=== PATIENT | female | born 1955 | race Caucasian/White ===

== ENCOUNTER → 2016-09-01 | Day surgery (SDC) | payer OTHER ==
[2016-08-23 11:27] VITALS: BMI 25.8
[~2016-09-01] MED LIST: DEXAMETHASONE SOD PHOSPHATE 10 MG/ML 1 ML VIAL IV ONE; GENTAMICIN 120 MG in SODIUM CHLORIDE 0.9% 100 ML IVPB ONE; HYDROmorphone 1 MG/ML 1 ML SYRINGE IVP PRN; LACTATED RINGERS 1,000 ML IV SCH; MIDAZOLAM 2 MG/2 ML VIAL IV PRN; ONDANSETRON 4 MG/2 ML VIAL IVP ONE; SCOPOLAMINE 1.5MG/72HR PATCH TRANSDERM ONE; ceFAZolin 2 GM in SODIUM CHLORIDE 0.9% 100 ML IVPB ONE
[2016-09-01 06:34] VITALS: BP 106/75; PULSE 74; RESP 18; TEMP 97.6
== END ==
LOC: OR 06:13
PROVIDERS: ATTEND Urology
DX: N39.46 Mixed incontinence (principal); Z53.09 Procedure and treatment not carried out because of other contraindication

== ENCOUNTER 2016-09-23 13:36 | Day surgery (SDC) | payer OTHER ==
[~2016-09-23 13:36] MED LIST changes: -DEXAMETHASONE SOD PHOSPHATE 10 MG/ML 1 ML VIAL IV ONE; -HYDROmorphone 1 MG/ML 1 ML SYRINGE IVP PRN; -LACTATED RINGERS 1,000 ML IV SCH; -MIDAZOLAM 2 MG/2 ML VIAL IV PRN; -ONDANSETRON 4 MG/2 ML VIAL IVP ONE; -SCOPOLAMINE 1.5MG/72HR PATCH TRANSDERM ONE
[2016-09-23] MEDS ORDERED: LACTATED RINGERS 1,000 ML IV ONE ×2 (14:15→15:21)
[2016-09-23] MEDS ORDERED: SCOPOLAMINE 1.5MG/72HR PATCH TRANSDERM ONE (14:26)
[2016-09-23] MEDS ORDERED: ONDANSETRON 4 MG/2 ML VIAL IVP ONE (14:26)
[2016-09-23] MEDS ORDERED: MIDAZOLAM 2 MG/2 ML VIAL IV PRN (14:26)
[2016-09-23] MEDS ORDERED: HYDROmorphone 1 MG/ML 1 ML SYRINGE IVP PRN (14:26)
[2016-09-23] MEDS ORDERED: LIDOCAINE 1% 20 ML VIAL (10MG/ML) FOR IV START INTRADERMA PRN (14:26)
[2016-09-23] MEDS ORDERED: DEXAMETHASONE SOD PHOSPHATE 10 MG/ML 1 ML VIAL IV ONE (14:26)
[2016-09-23] MEDS ORDERED: LACTATED RINGERS 1,000 ML IV SCH (14:30)
[2016-09-23] MEDS ORDERED: SUCCINYLCHOLINE CHLORIDE 100 MG/5 ML SYR IV ONE (14:32)
[2016-09-23] MEDS ORDERED: PROPOFOL 10 MG/ML 20 ML VIAL IV ONE (14:32)
[2016-09-23] MEDS ORDERED: ROCURONIUM BROMIDE 10 MG/ML 10 ML VIAL IV ONE (14:32)
[2016-09-23] MEDS ORDERED: LIDOCAINE 1% INJ 10MG/ML (20 ML MDV) ONE (14:32)
[2016-09-23] MEDS ORDERED: NEOSTIGMINE 1 MG/ML 10 ML VIAL ONE (14:32)
[2016-09-23] MEDS ORDERED: fentaNYL (PF) 50 MCG/ML 2 ML AMP ONE (14:32)
[2016-09-23] MEDS ORDERED: GLYCOPYRROLATE 0.2 MG/ML 2 ML VIAL ONE (14:32)
[2016-09-23] MEDS ORDERED: GENTAMICIN 80 MG in SODIUM CHLORIDE 0.9% 500 ML IRRIGATION ONE (14:32)
[2016-09-23] MEDS ORDERED: HYDROmorphone (PF) 1 MG/ML ONE (14:32)
[2016-09-23] MEDS ORDERED: MIDAZOLAM 2 MG/2 ML VIAL ONE (14:32)
[2016-09-23] MEDS ORDERED: ePHEDrine 50 MG/ML 1 ML AMP ONE (14:32)
[2016-09-23] MEDS ORDERED: BUPIVACAIN-EPI 0.5%-1:200,000 30 ML VIAL SQ ONE ×4 (14:38→14:47)
[2016-09-23] MEDS ORDERED: BACITRACIN 500 UNIT/GM OINT 28.4 GM TUBE TOPICAL ONE (14:48)
--- NOTE | 2016-09-23 15:42 | P.OP ---
Date of Procedure: 09/23/16 Preoperative Diagnosis: Mixed Urinary Incontinence Postoperative Diagnosis: Same Procedure(s) Performed: Obtryx Transobturator Sling Anesthesia: GILES Surgeon: Gabe Vega Estimated Blood Loss (ml): 25 IV fluids (ml): 900 Pathology: none sent Condition: stable Disposition: PACU Indications for Procedure: She is a 61-year-old woman with a greater than 10 year history of significant mixed urinary incontinence, which required the use of 6 pads daily. The urge component is predominant. Treatment with Toviaz and oxybutynin chloride was unsuccessful. On examination, there is evidence of mild urethral hypermobility. Bladder emptying is complete. She was given a trial of Myrbetriq but does not recall how well it worked. She is currently taking Detrol, and her incontinence is improved such that she now requires the use of 3 pads daily. Recent urinalysis showed microhematuria. A CT scan and cystoscopy were unremarkable. She has elected to undergo a transobturator sling for her incontinence. She understands the possible need for her to continue antimuscarinic therapy following surgery. Operative Findings: No anatomic abnormalities noted. Description of Procedure: The patient was taken to the operating room and placed in the dorsal lithotomy position, with her legs supported in Erik stirrups. The perineum, lower abdomen, and vagina were prepped and draped sterilely. A 16-Portuguese Downing catheter was placed. 0.5% Marcaine with epinephrine was injected submucosally within the anterior vaginal wall, over the urethra. The scalpel was then used to make an anterior midline vaginal incision over the urethra. Metzenbaum scissors were used to dissect laterally within the submucosal plane, to the inferior pubic ramus. The scalpel was used to make bilateral groin incisions at the level of the clitoris. Subcutaneous tissues were spread with a hemostat. Each of the helical needles were passed through the respective groin incision, and turned such that the needle tip wrapped around the pubis. The needle tips were guided digitally into the vaginal incision. The Obtryx graft, which had been previously soaked in antibiotic solution, was secured to the needle tips in the standard fashion. The needles were then withdrawn, and the position of the graft was adjusted such that it overlie the mid urethra, as desired. With a hemostat placed between the graft and the urethra to prevent tension of the graft over the urethra, the plastic sheath was removed from the ends of the graft. The ends of the graft were cut beneath the skin incisions, and these incisions were closed using 4-0 Vicryl suture in a subcuticular fashion. Hemostasis within the vaginal incision was adequate, and the vaginal incision was closed using 2-0 Vicryl suture in a running fashion. Cystoscopy was performed. The 30 lens was used to introduce the 19-Portuguese Storz cystoscopic sheath through the urethra and into the bladder under direct vision. The urethra and bladder were unremarkable. There was no evidence of perforation. Both ureteral orifices were of normal anatomic location and configuration, and clear urine effluxed from both. No tumors or foreign bodies were seen. The cystoscope was removed, and the Downing catheter was replaced into the bladder. All sponge and needle counts were correct. The patient tolerated the procedure well was taken to the recovery room in stable condition.
[2016-09-23] MEDS ORDERED: ONDANSETRON 4 MG/2 ML VIAL IVP PRN (15:44)
[2016-09-23] MEDS ORDERED: HYDROcodone/APAP 5-325MG 1 EACH TAB PO PRN ×2 (15:48→15:49)
[2016-09-23] MEDS ORDERED: ceFAZolin 1 GM in SODIUM CHLORIDE 0.9% 100 ML IVPB SCH ×2 (16:00→23:00)
[2016-09-23] MEDS: DEXTROSE 5%-0.45% NACL 1,000 ML IV SCH (18:24)
[2016-09-23 23:32] VITALS: BMI 25.7
[2016-09-23] MEDS: ceFAZolin 1,000 MG in DEXTROSE/WATER 1 50ML.BAG IVPB SCH (23:47)
[2016-09-24] MEDS ORDERED: GENTAMICIN 100 MG in SODIUM CHLORIDE 0.9% 100 ML IVPB ONE (02:00)
[2016-09-24] MEDS: KETOROLAC 30 MG/ML 1 ML VIAL IVP PRN ×2 (02:12→09:34)
[2016-09-24] MEDS: DEXTROSE 5%-0.45% NACL 1,000 ML IV SCH (04:52)
[2016-09-24 08:19] VITALS: BP 92/54; PULSE 54; TEMP 97.5
[2016-09-24] MEDS ORDERED: PANTOPRAZOLE 40 MG TABLET PO SCH (09:00)
[2016-09-24] MEDS ORDERED: CITALOPRAM HYDROBROMIDE 20 MG TAB PO SCH (09:00)
[2016-09-24] MEDS: ceFAZolin 1,000 MG in DEXTROSE/WATER 1 50ML.BAG IVPB SCH (09:15)
--- NOTE | 2016-09-24 09:18 | P.PN ---
Progress Note - Text The patient is afebrile and comfortable. He catheter was removed 2 hours ago and she was able to void with a post void residual of 20 ml. There is minimal vaginal drainage. She will be discharged and will see Dr Vega in 1 week for followup. She will continue all preop meds and can resume a regular diet. She will continue light activity only.
[2016-09-24 11:08] VITALS: RESP 18
== END 2016-09-24 11:35 | disposition home or self-care (01) ==
LOC: OR 13:36 → 6PED 15:38 → OR 09-24 11:35
PROVIDERS: ATTEND Urology
DX: N39.46 Mixed incontinence (principal); K21.9 Gastro-esophageal reflux disease without esophagitis; F41.9 Anxiety disorder, unspecified; F32.9 Major depressive disorder, single episode, unspecified; G47.33 Obstructive sleep apnea (adult) (pediatric); Z79.899 Other long term (current) drug therapy; Z88.5 Allergy status to narcotic agent; Z72.0 Tobacco use
CPT/HCPCS: 57288; C1771; J2250; J1580 ×3; J2710; J0690 ×2; J2405; J2001; J3010; J1885; J1170; J0330; J2704

== ENCOUNTER → 2016-11-17 | Outpatient (CLI) | payer OTHER ==
--- NOTE | 2016-11-17 12:26 | MR ---
MR lumbar spine wo con CLINICAL HISTORY: Low back pain. Multiplanar, multiecho imaging of the lumbar spine was obtained without contrast on a 3 Zina magnet. REFERENCE: Previous study dated 10/10/2014. FINDINGS: Paraspinal soft tissues are normal. Vertebral body height and alignment are maintained. Cord signal is normal. The conus ends normally at the level of the mid body of L1. At T12-L1, there is a central and slightly left paracentral disc displacement. This is slightly more severe than on the previous exam. The intervertebral foramina are well maintained. There is mild caps ulitis in the facets. At L1-2, there is mild capsulitis within the facets. At L2-3, there is hypertrophic change and capsulitis within the facets. At L3-4, the intervertebral foramina are well maintained. There is a mild, bilobed disc displacement. There is mild hypertrophic change and capsulitis within the facets. At L4-5, there is a diffuse disc displacement. This is causing mild, bilateral intervertebral foramin al narrowing. There are hypertrophic changes in the facets. There is mild trefoiling of the thecal sa c, unchanged from previous. At L5-S1, there is severe disc space loss. There are fatty endplate changes. The intervertebral santa man are well maintained. There is no significant compressive discopathy. There are mild hypertrophic changes within the facets. IMPRESSION: 1. DEGENERATIVE DISC DISEASE L3-4, L4-5 AND L5-S1, MOST SEVERE AT L5-S1. 2. DIFFUSE FACET ARTHROPATHY. 3. MILD, BILATERAL INTERVERTEBRAL FORAMINAL NARROWING, L4-5.
== END | disposition home or self-care (01) ==
LOC: RADMRIMAIN 10:58
PROVIDERS: ATTEND Orthopaedic Surgery Orthopaedic Surgery of the Spine
DX: M51.37 Other intervertebral disc degeneration, lumbosacral region (principal); M99.73 Connective tissue and disc stenosis of intervertebral foramina of lumbar region; M51.16 Intervertebral disc disorders with radiculopathy, lumbar region; M46.86 Other specified inflammatory spondylopathies, lumbar region
CPT/HCPCS: 72148

== ENCOUNTER → 2017-01-04 | Outpatient (CLI) | payer OTHER ==
[2017-01-04 08:56] LABS: Partial Thromboplastin Time 23.7 sec (22.0-30.0); Prothrombin Time 10.2 sec (9.0-12.0)
[2017-01-04 08:58] LABS: Basophils # (A) 0.1 k/uL (0-0.2); Basophils % (A) 1 %; CH 31.9; CHCM 33.6; Eosinophils # (A) 0.1 k/uL (0-0.7); Eosinophils % (A) 1 %; HCT 47.7 % (34.0-46.0); HDW 2.31; HGB 15.5 gm/dL (11.4-16.0); Luc # (Auto) 0.09; Luc % (Auto) 1; Lymphocytes # (A) 1.7 k/uL (1.0-4.8); Lymphocytes % (A) 23 %; MCH 31.1 pg (25.0-35.0); MCHC 32.6 g/dL (31.0-37.0); MCV 95.4 fL (80.0-100.0); Mean Platelet Volume 7.3; Monocytes # (A) 0.3 k/uL (0-1.0); Monocytes % (A) 4 %; Neutrophils # (A) 5.4 k/uL (1.3-7.7); Neutrophils % (A) 71 %; RDW 13.3 % (11.5-15.5); WBC 7.6 k/uL (3.8-10.6)
[2017-01-04 09:21] LABS: Appearance,Urine Clear (Clear); Bilirubin,Urine Negative (Negative); Glucose,Urine (UA) Negative (Negative); Ketones,Urine Negative (Negative); Leukocyte Esterase,Urine Negative (Negative); Mucus,Urine Rare /hpf; Nitrite,Urine Negative (Negative); PH, Urine 5.5 (5.0-8.0); Particle Count 2349; Protein,Urine Negative (Negative); RBC,Urine 7 /hpf (0-5); Specific Gravity,Urine 1.013 (1.001-1.035); Squamous Epithelial Cell,Urine 1 /hpf (0-4); UA Billing (MACRO vs. MICRO) MICRO; Urobilinogen,Urine <2.0 mg/dL (<2.0); WBC,Urine 1 /hpf (0-5)
[2017-01-04 09:23] LABS: Anion Gap 8 mmol/L; Blood Urea Nitrogen 13 mg/dL (7-17); Calcium 9.6 mg/dL (8.4-10.2); Carbon Dioxide 24 mmol/L (22-30); Chloride 107 mmol/L (98-107); Glucose 110 mg/dL (74-99); Non-African American GFR(MDRD) >60 (>60 ml/min/1.73 sqM); Potassium 4.3 mmol/L (3.5-5.1); Sodium 139 mmol/L (137-145)
--- NOTE | 2017-01-04 14:11 | XR ---
EXAMINATION TYPE: XR chest 2V DATE OF EXAM: 01/04/2017 8:57 AM COMPARISON: Prior chest x-ray 16 March 2016 HISTORY: Presurgical TECHNIQUE: Frontal and lateral views of the chest are obtained. FINDINGS: There is no focal air space opacity, pleural effusion, or pneumothorax seen. The cardiac silhouette size is within normal limits. The osseous structures are intact. IMPRESSION: No acute cardiopulmonary process.
== END | disposition home or self-care (01) ==
LOC: LABPAT 08:03
PROVIDERS: ATTEND Orthopaedic Surgery Orthopaedic Surgery of the Spine
DX: Z01.818 Encounter for other preprocedural examination (principal); Z01.812 Encounter for preprocedural laboratory examination; M51.36 Other intervertebral disc degeneration, lumbar region
CPT/HCPCS: 71020; 80048; 81001; 85025; 85610; 85730; 87070

== ENCOUNTER → 2017-03-31 | Outpatient (CLI) | payer OTHER ==
--- NOTE | 2017-03-31 14:50 | CT ---
EXAMINATION TYPE: CT brain wo con DATE OF EXAM: 03/31/2017 COMPARISON: NONE HISTORY: Syncope CT DLP: 1029.90 mGycm. Automated Exposure Control for Dose Reduction was Utilized. TECHNIQUE: CT scan of the head is performed without contrast. FINDINGS: The cerebellar tonsils are noted to be low-lying. There is no acute intracranial hemorrha ge, mass effect, or midline shift identified. The ventricles and sulci are within normal limits in s ize. The globes are intact. Polypoid mucosal thickening is seen within the right sphenoid sinus carolyn uring 5 mm. Incidental note is made of a small right-sided rekha bullosa. Remaining paranasal sinuse s and mastoid air cells are well aerated. Atherosclerosis is noted of the intracranial vasculature, m ore notably within the right internal carotid artery in the cavernous and supraclinoid portions. IMPRESSION: 1. No acute intracranial hemorrhage, mass effect, or midline shift is seen. 2. Low-lying cerebellar tonsils without other evidence of Chiari malformation. 3. Polypoid mucosal thickening within the right sphenoid sinus.
--- NOTE | 2017-04-01 06:40 | US ---
EXAMINATION TYPE: US carotid duplex BILAT DATE OF EXAM: 03/31/2017 COMPARISON: NONE CLINICAL HISTORY: R55 syncope; some dizziness and memory loss per patient; smoker EXAM MEASUREMENTS: RIGHT: Peak Systolic Velocity (PSV) cm/sec ----- Right CCA: 79.1 ----- Right ICA: 98.7 ----- Right ECA: 71.1 ICA/CCA ratio: 1.2 RIGHT: End Diastole cm/sec ----- Right CCA: 24.8 ----- Right ICA: 33.7 ----- Right ECA: 17.2 LEFT: Peak Systolic Velocity (PSV) cm/sec ----- Left CCA: 86.7 ----- Left ICA: 87.9 ----- Left ECA: 82.9 ICA/CCA ratio: 1.0 LEFT: End Diastole cm/sec ----- Left CCA: 19.7 ----- Left ICA: 37.4 ----- Left ECA: 15.9 VERTEBRALS (direction of flow): Right Vertebral: Antegrade Left Vertebral: Antegrade Mild intimal wall changes are noted at bilateral carotid bifurcation and PSV is wnl bilaterally. Incidental findings were noted of bilateral thyroid nodules. IMPRESSION: I DO NOT SEE EVIDENCE OF A HEMODYNAMICALLY SIGNIFICANT STENOSIS IN EITHER CAROTID SYSTEM. Criteria for Assigning % of Stenosis / Diameter reduction (Estimation based on the indirect measurements of the internal carotid artery velocities (ICA PSV). 1. Normal (no stenosis)=ICA PSV < 125 cm/s: ratio < 2.0: ICA EDV<40 cm/s. 2. Less than 50% stenosis=ICA PSV < 125 cm/s: ratio < 2.0: ICA EDV<40 cm/s. 3. 50 to 69% stenosis=ICA PSV of 125 to 230 cm/s: ration 2.0 ? 4.0: ICA EDV 40-100 cm/s. 4. Greater than 70% stenosis to near occlusion= ICA PSV > 230 cm/s: ratio > 4.0: ICA EDV > 100 cm/s. 5. Near occlusion= ICA PSV velocities may be low or undetectable: variable ratio and ICA EDV. 6. Total occlusion=unable to detect flow.
--- NOTE | 2017-04-03 17:02 | ECHOF ---
Referral Reason:R55 syncope MEASUREMENTS -------- HEIGHT: 167.6 cm WEIGHT: 74.8 kg BP: 123/78 RVIDd: 2.6 cm (< 3.3) IVSd: 1.1 cm (0.6 - 1.1) LVIDd: 3.8 cm (3.9 - 5.3) LVPWd: 1.1 cm (0.6 - 1.1) IVSs: 1.4 cm LVIDs: 2.4 cm LVPWs: 1.4 cm LA Diam: 2.5 cm (2.7 - 3.8) LAESV Index (A-L): 23.72 ml/m Ao Diam: 3.0 cm (2.0 - 3.7) AV Cusp: 2.2 cm (1.5 - 2.6) MV EXCURSION: 15.184 mm (> 18.000) MV EF SLOPE: 94 mm/s (70 - 150) EPSS: 0.5 cm MV E Deacon: 0.65 m/s MV DecT: 257 ms MV A Deacon: 0.66 m/s MV E/A Ratio: 0.98 FINDINGS -------- Sinus rhythm. This was a technically adequate study. The left ventricular size is normal. Left ventricular wall thickness is normal. Overall left ventricular systolic function is normal with, an EF between 60 - 65 %. The right ventricle is normal in size. Normal LA size by volume 22+/-6 ml/m2. The right atrium is normal in size. The aortic valve is trileaflet and appears structurally normal. Mild mitral annular calcification present. The tricuspid valve appears structurally normal. No regurgitation noted The pulmonic valve was not well visualized. The aortic root size is normal. Normal inferior vena cava with normal inspiratory collapse consistent with estimated right atrial pressure of 5 mmHg. There is no pericardial effusion. CONCLUSIONS -------- 1. Sinus rhythm. 2. Mild mitral annular calcification present. 3. The tricuspid valve appears structurally normal. 4. No regurgitation noted 5. The pulmonic valve was not well visualized. 6. The aortic root size is normal. 7. Normal inferior vena cava with normal inspiratory collapse consistent with estimated right atrial pressure of 5 mmHg. 8. There is no pericardial effusion. 9. This was a technically adequate study. 10. The left ventricular size is normal. 11. Left ventricular wall thickness is normal. 12. Overall left ventricular systolic function is normal with, an EF between 60 - 65 %. 13. The right ventricle is normal in size. 14. Normal LA size by volume 22+/-6 ml/m2. 15. The right atrium is normal in size. 16. The aortic valve is trileaflet and appears structurally normal. PUBLIC HEALTH: Cathryn Hawkins RDCS
== END ==
LOC: RADCTMAIN 14:01
PROVIDERS: ATTEND Family Medicine
DX: R55 Syncope and collapse (principal)
CPT/HCPCS: 70450; 93306; 93880

== ENCOUNTER → 2017-09-01 | Outpatient (CLI) | payer OTHER ==
--- NOTE | 2017-09-01 08:52 | NM ---
Nuclear medicine hepatobiliary scan. HISTORY: Pain. DOSAGE: The patient received 8 ounces of ensure plus and 5.5 mCi of Technetium 99m Choletec. FINDINGS: There is normal hepatic extraction. The gallbladder is seen by 15 minutes. Ejection fract ion is 82%. IMPRESSION: 1. Ejection fraction of 82% which can occasionally be seen with hyperdynamic gallbladder correlate cl inically.
--- NOTE | 2017-09-01 09:25 | FL ---
EXAMINATION TYPE: FL barium swallow DATE OF EXAM: 09/01/2017 CLINICAL HISTORY: GERD nausea and dysphagia. Reflux-like symptoms or epigastric pain per patient with some improvement on reflux medication. TECHNIQUE: A double contrast esophagram is performed utilizing air and barium. A total of 22 second s of fluoroscopic time was utilized during procedure. 21 spot images are saved to PACS system for int erpretation. COMPARISON: None FINDINGS: The esophagus shows satisfactory motility and emptying into the stomach. Some dysmotility i s present during prone flat drinking. No evidence of fixed hiatal hernia or stricture noted. No worri some intraluminal mass is seen. No significant gastroesophageal reflux was seen during real time perf ormance of this study. IMPRESSION: No significant abnormality is seen to account for patient's symptoms.
== END | disposition home or self-care (01) ==
LOC: RADNMMAIN 06:43
PROVIDERS: ATTEND Surgery
DX: K81.1 Chronic cholecystitis (principal); K21.9 Gastro-esophageal reflux disease without esophagitis; R13.10 Dysphagia, unspecified
CPT/HCPCS: 74220; 78226; A9537

== ENCOUNTER 2017-09-08 10:15 | Day surgery (SDC) | payer OTHER ==
[2017-09-06 11:42] VITALS: BMI 24.6
[~2017-09-08 10:15] MED LIST changes: -GENTAMICIN 120 MG in SODIUM CHLORIDE 0.9% 100 ML IVPB ONE; +LACTATED RINGERS 1,000 ML IV SCH; -ceFAZolin 2 GM in SODIUM CHLORIDE 0.9% 100 ML IVPB ONE
[2017-09-08 10:50] VITALS: RESP 16; TEMP 99
[2017-09-08] MEDS ORDERED: LIDOCAINE 1% 20 ML VIAL (10MG/ML) FOR IV START INTRADERMA ONE (10:51)
[2017-09-08] MEDS ORDERED: fentaNYL (PF) 50 MCG/ML 2 ML AMP ONE (11:31)
[2017-09-08] MEDS ORDERED: GLYCOPYRROLATE 0.2 MG/ML 2 ML VIAL ONE (11:31)
[2017-09-08] MEDS ORDERED: PROPOFOL 10 MG/ML 20 ML VIAL IV ONE (11:31)
--- NOTE | 2017-09-08 11:35 | P.GSHP ---
History of Present Illness H&P Date: 09/08/17 Chief Complaint: GERD, nausea, epigastric discomfort This a 8-year-old female who presents today for EGD. She has issues with GERD and epigastric dull pain. Her recent HIDA scan shows an ejection fraction consistent with biliary hyperkinesia's. She presents today for EGD to evaluate for possible gastritis and GERD. Her esophagram shows no evidence of a hiatal hernia or reflux. Past Medical History Past Medical History: GERD/Reflux, Osteoarthritis (OA), Pneumonia, Sleep Apnea/ CPAP/BIPAP Additional Past Medical History / Comment(s): "feels nauseated all the time",Hx Blood clot bottom left foot, epigastric pain, pneumonia yrs ago, does not use CPAP or BIPAP. Current issues with urinary incontinence. History of Any Multi-Drug Resistant Organisms: None Reported Past Surgical History: Bladder Surgery, Section, Hernia Repair, Joint Replacement, Orthopedic Surgery, Tonsillectomy Additional Past Surgical History / Comment(s): Total right hip arthroplasty, left knee arthroscopy x 2, EGD with BX, partial hysterectomy,bladder sling Past Anesthesia/Blood Transfusion Reactions: No Reported Reaction Past Psychological History: Anxiety, Depression Additional Psychological History / Comment(s): Pt states medication for anxiety and depression work well. She lives with her significant other. She uses no assistive device. She borrowed a walker for post op. She drives. Smoking Status: Current every day smoker Past Alcohol Use History: None Reported Additional Past Alcohol Use History / Comment(s): smokes <1 PPD,started smoking at age 21 Past Drug Use History: None Reported - Past Family History Mother Family Medical History: Cancer Additional Family Medical History / Comment(s): Pt does not recall type of cancer. Sister(s) Family Medical History: Cancer Father Family Medical History: No Reported History Additional Family Medical History / Comment(s): Father was healthy until the time of his at age 85 yrs. Medications and Allergies Home Medications Medication Instructions Recorded Confirmed Type Tolterodine Tartrate [Detrol] 2 mg PO BID 08/23/16 09/06/17 History Sucralfate [Carafate] 1 gm PO ACHS 09/06/17 09/06/17 History Vortioxetine Hydrobromide 20 mg PO HS 09/06/17 09/06/17 History [Trintellix] Allergies Allergy/AdvReac Type Severity Reaction Status Date / Time codeine AdvReac Nausea & Verified 09/06/17 11:35 Vomiting morphine AdvReac Nausea & Verified 09/06/17 11:35 Vomiting Surgical - Exam Vital Signs Temp Pulse Resp BP Pulse Ox 99 F 75 16 113/66 99 09/08/17 10:48 09/08/17 10:48 09/08/17 10:48 09/08/17 10:48 09/08/17 10:48 - General well developed, no distress - Eyes PERRL - ENT normal pinna - Neck no masses - Respiratory normal expansion - Cardiovascular Rhythm: regular - Abdomen Abdomen: soft, non tender Assessment and Plan Assessment: GERD, nausea we'll perform EGD.
--- NOTE | 2017-09-08 11:42 | P.OP ---
Date of Procedure: 09/08/17 Preoperative Diagnosis: GERD, epigastric dull pain Postoperative Diagnosis: Mild antral gastritis No evidence of hiatal hernia Procedure(s) Performed: EGD Anesthesia: MAC Surgeon: Kulwinder Morales Pathology: other (Antrum) Condition: stable Disposition: PACU Description of Procedure: The patient's placed on the endoscopy table in the lateral position. She received IV sedation. The gastric scope placed oropharynx and passed into the esophagus and into the stomach. Scope was then placed through the pylorus. The first and second portion of the duodenum appeared normal. Scope was then withdrawn and the antrum. Minimal inflamed. A biopsies performed. Scope was then retroflexed the remainder of the stomach appeared normal. There was no hiatal hernia. The GE junction was at 40 cm.. The distal esophagus appeared normal. The proximal esophagus appeared normal. Scope was withdrawn for patient.
[2017-09-08 12:00] VITALS: BP 99/56; PULSE 76
== END 2017-09-08 12:29 | disposition home or self-care (01) ==
LOC: ORWHC2ENDO 10:15
PROVIDERS: ATTEND Surgery
DX: K29.50 Unspecified chronic gastritis without bleeding (principal); K21.9 Gastro-esophageal reflux disease without esophagitis; M19.90 Unspecified osteoarthritis, unspecified site; G47.33 Obstructive sleep apnea (adult) (pediatric); Z99.89 Dependence on other enabling machines and devices; F17.200 Nicotine dependence, unspecified, uncomplicated; F32.9 Major depressive disorder, single episode, unspecified; F41.9 Anxiety disorder, unspecified; Z79.899 Other long term (current) drug therapy; Z88.5 Allergy status to narcotic agent
CPT/HCPCS: 43239; J3010; J2704; 88305; 88342

== ENCOUNTER → 2017-09-15 | Outpatient (CLI) | payer OTHER ==
--- NOTE | 2017-09-18 11:48 | MM ---
Reason for exam: screening (asymptomatic). Last mammogram was performed 1 year and 9 months ago. History: Family history of breast cancer in maternal cousin. Benign stereotactic core biopsy of the right breast, August 02, 2000. Core biopsy of the right breast. Physical Findings: A clinical breast exam by your physician is recommended on an annual basis and results should be correlated with mammographic findings. MG Screening Mammo w CAD Bilateral CC and MLO view(s) were taken. Prior study comparison: December 28, 2015, bilateral MG 3d screening mammo w/cad. May 01, 2003, bilateral diagnostic mammogram. The breast tissue is heterogeneously dense. This may lower the sensitivity of mammography. There is no discrete abnormality. No significant changes when compared with prior studies. ASSESSMENT: Negative, BI-RAD 1 RECOMMENDATION: Routine screening mammogram of both breasts in 1 year.
== END | disposition home or self-care (01) ==
LOC: RADMAMWWP 11:23
PROVIDERS: ATTEND Family Medicine
DX: Z12.31 Encounter for screening mammogram for malignant neoplasm of breast (principal)
CPT/HCPCS: 77067

== ENCOUNTER 2017-09-21 06:43 | Day surgery (SDC) | payer OTHER ==
[2017-09-15 12:44] VITALS: BMI 24.6
[~2017-09-21 06:43] MED LIST changes: +DEXAMETHASONE SOD PHOSPHATE 10 MG/ML 1 ML VIAL IV ONE; +HEPARIN SODIUM,PORCINE 5,000 UNIT/ML 1 ML VIAL SQ ONE; +HYDROmorphone 0.5 MG/0.5 ML SYRINGE IVP PRN; +LIDOCAINE 1% 20 ML VIAL (10MG/ML) FOR IV START INTRADERMA PRN; +MIDAZOLAM 2 MG/2 ML VIAL IV PRN; +SCOPOLAMINE 1.5MG/72HR PATCH TRANSDERM ONE; +ceFAZolin IN SWFI 2 GM/20 ML SYRINGE IVP ONE
[2017-09-21] MEDS ORDERED: BUPIVACAINE (PF) 0.25% 30 ML VIAL SQ ONE (07:27)
[2017-09-21] MEDS: ONDANSETRON 4 MG/2 ML VIAL IVP ONE ×2 (07:37→09:45)
--- NOTE | 2017-09-21 07:58 | P.GSHP ---
History of Present Illness H&P Date: 09/21/17 Chief Complaint: Right upper pain This is a 62-year-old female for from Dr. Lucia. Patient complains of right upper quadrant pain. Her recent HIDA scan shows abnormal ejection fraction consistent with chronic cholecystitis. Past Medical History Past Medical History: GERD/Reflux, Osteoarthritis (OA), Pneumonia, Sleep Apnea/ CPAP/BIPAP Additional Past Medical History / Comment(s): Hx Blood clot bottom left foot, epigastric pain, pneumonia yrs ago, does not use CPAP or BIPAP. Current issues with urinary incontinence. History of Any Multi-Drug Resistant Organisms: None Reported Past Surgical History: Section, Hernia Repair, Joint Replacement, Orthopedic Surgery, Tonsillectomy Additional Past Surgical History / Comment(s): Total right hip arthroplasty, left knee arthroscopy x 2, EGD with BX, partial hysterectomy. Past Anesthesia/Blood Transfusion Reactions: No Reported Reaction Smoking Status: Current every day smoker - Past Family History Mother Family Medical History: Cancer Additional Family Medical History / Comment(s): Pt does not recall type of cancer. Sister(s) Family Medical History: Cancer Father Family Medical History: No Reported History Additional Family Medical History / Comment(s): Father was healthy until the time of his at age 85 yrs. Medications and Allergies Home Medications Medication Instructions Recorded Confirmed Type Tolterodine Tartrate [Detrol] 2 mg PO BID 08/23/16 09/21/17 History Vortioxetine Hydrobromide 20 mg PO HS 09/06/17 09/21/17 History [Trintellix] Allergies Allergy/AdvReac Type Severity Reaction Status Date / Time codeine AdvReac Nausea & Verified 09/15/17 12:29 Vomiting morphine AdvReac Nausea & Verified 09/15/17 12:29 Vomiting Surgical - Exam Vital Signs Temp Pulse Resp BP Pulse Ox 98.0 F 67 18 119/69 97 09/21/17 07:18 09/21/17 07:18 09/21/17 07:18 09/21/17 07:18 09/21/17 07:18 - General well developed, no distress - Eyes PERRL - ENT normal pinna - Neck no masses - Respiratory normal expansion - Cardiovascular Rhythm: regular - Abdomen Abdomen: soft, non tender Assessment and Plan Assessment: Chronic cholecystitis. We'll perform laparoscopic cholecystectomy.
[2017-09-21] MEDS ORDERED: NEOSTIGMINE 1 MG/ML 10 ML VIAL ONE (08:05)
[2017-09-21] MEDS ORDERED: MIDAZOLAM 2 MG/2 ML VIAL ONE (08:05)
[2017-09-21] MEDS ORDERED: fentaNYL (PF) 50 MCG/ML 2 ML AMP ONE (08:05)
[2017-09-21] MEDS ORDERED: PROPOFOL 10 MG/ML 20 ML VIAL IV ONE ×2 (08:05)
[2017-09-21] MEDS ORDERED: KETOROLAC 30 MG/ML 1 ML VIAL ONE (08:05)
[2017-09-21] MEDS ORDERED: LIDOCAINE 1% INJ 10MG/ML (20 ML MDV) ONE (08:05)
[2017-09-21] MEDS ORDERED: ROCURONIUM BROMIDE 10 MG/ML 10 ML VIAL IV ONE (08:05)
[2017-09-21] MEDS ORDERED: GLYCOPYRROLATE 0.2 MG/ML 2 ML VIAL ONE (08:05)
[2017-09-21] MEDS ORDERED: LACTATED RINGERS 1,000 ML IV ONE (08:26)
--- NOTE | 2017-09-21 08:43 | P.OP ---
Date of Procedure: 09/21/17 Preoperative Diagnosis: Cholecystitis Postoperative Diagnosis: Cholecystitis Procedure(s) Performed: Laparoscopic cholecystectomy Anesthesia: MAC Surgeon: Kulwinder Morales Estimated Blood Loss (ml): 5 Pathology: other (Gallbladder) Condition: stable Disposition: PACU Description of Procedure: The patient was placed on the operating table. The patient received a general endotracheal tube anesthesia. The patients abdomen was prepped and draped in the usual sterile fashion. Through an infraumbilical stab incision, the fascia of the anterior abdominal wall was grasped with a pair of Kochers and then the Veress needle was placed in the peritoneal cavity. Position of the Veress needle was confirmed with positive drop test. The abdomen was then insufflated. After adequate insufflation, the 10 mm trocar was placed in the peritoneal cavity. Following this the laparoscope was placed in the peritoneal cavity. The patient was placed in the head-up, right side up position and then a 5 mm trocar was placed in the right lateral and right subcostal position under direct visualization. A 8 mm trocar was placed in the epigastric position. The gallbladder was grasped in the fundus and infundibulum. Traction on the gallbladder was placed in the lateral and the cephalad positions. The triangle of Calot was visualized.. The cystic duct was bluntly dissected until the union of the cystic duct and common bile duct was seen. The cystic duct was then divided and sealed with the Harmonic scissors. A PDS Endoloop was then placed throughout the cystic duct stump. The cystic artery divided and sealed with the Harmonic scissors. The gallbladder was then removed from the liver bed using Harmonic scissors. The gallbladder was then extracted through the epigastric port site. Operative field was checked for any bleeding spots and Harmonic scissors was used to coagulate the liver bed. The abdomen was irrigated. The trocars were removed. The skin was closed using interrupted 3-0 Vicryl suture. Dermabond dressing were applied. The patient tolerated the procedure well.
[2017-09-21 08:53] VITALS: RESP 16; TEMP 97
[2017-09-21 11:14] VITALS: BP 102/59; PULSE 46
== END 2017-09-21 11:58 | disposition home or self-care (01) ==
LOC: OR 06:43
PROVIDERS: ATTEND Surgery
DX: K80.10 Calculus of gallbladder with chronic cholecystitis without obstruction (principal); K21.9 Gastro-esophageal reflux disease without esophagitis; M19.90 Unspecified osteoarthritis, unspecified site; G47.33 Obstructive sleep apnea (adult) (pediatric); F17.200 Nicotine dependence, unspecified, uncomplicated; R32 Unspecified urinary incontinence; Z79.899 Other long term (current) drug therapy; Z88.5 Allergy status to narcotic agent
CPT/HCPCS: 88304; 47562; J2250; J1644; J1100; J2710; J2405; J2001; J3010; J1885; J2704; J0690

== ENCOUNTER 2017-11-17 07:56 | Day surgery (SDC) | payer OTHER ==
[2017-11-15 10:57] VITALS: BMI 23.6
[~2017-11-17 07:56] MED LIST changes: -DEXAMETHASONE SOD PHOSPHATE 10 MG/ML 1 ML VIAL IV ONE; -HEPARIN SODIUM,PORCINE 5,000 UNIT/ML 1 ML VIAL SQ ONE; -HYDROmorphone 0.5 MG/0.5 ML SYRINGE IVP PRN; -LIDOCAINE 1% 20 ML VIAL (10MG/ML) FOR IV START INTRADERMA PRN; -MIDAZOLAM 2 MG/2 ML VIAL IV PRN; -SCOPOLAMINE 1.5MG/72HR PATCH TRANSDERM ONE; -ceFAZolin IN SWFI 2 GM/20 ML SYRINGE IVP ONE
[2017-11-17 08:47] VITALS: TEMP 98
[2017-11-17] MEDS ORDERED: LIDOCAINE 1% 20 ML VIAL (10MG/ML) FOR IV START INTRADERMA ONE (08:50)
--- NOTE | 2017-11-17 08:58 | P.GSHP ---
History of Present Illness H&P Date: 11/17/17 Chief Complaint: Screening colonoscopy This a 62-year-old female referred from Dr. Lucia. Patient rents today for screening colonoscopy. She denies a significant GI complaints. Her last colonoscopy was over 10 years ago. Past Medical History Past Medical History: GERD/Reflux, Osteoarthritis (OA), Pneumonia, Sleep Apnea/ CPAP/BIPAP Additional Past Medical History / Comment(s): Hx Blood clot bottom left foot, does not use CPAP or BIPAP,urinary leakage History of Any Multi-Drug Resistant Organisms: None Reported Past Surgical History: Section, Hernia Repair, Hysterectomy, Joint Replacement, Orthopedic Surgery, Tonsillectomy Additional Past Surgical History / Comment(s): Total right hip arthroplasty, left knee arthroscopy x 2, EGD with BX, partial hysterectomy. Past Anesthesia/Blood Transfusion Reactions: No Reported Reaction Smoking Status: Current every day smoker - Past Family History Mother Family Medical History: Cancer Additional Family Medical History / Comment(s): Pt does not recall type of cancer. Sister(s) Family Medical History: Cancer Father Family Medical History: No Reported History Additional Family Medical History / Comment(s): Father was healthy until the time of his at age 85 yrs. Medications and Allergies Home Medications Medication Instructions Recorded Confirmed Type Tolterodine Tartrate [Detrol] 2 mg PO BID 08/23/16 11/15/17 History Vortioxetine Hydrobromide 20 mg PO HS 09/06/17 11/15/17 History [Trintellix] Allergies Allergy/AdvReac Type Severity Reaction Status Date / Time codeine AdvReac Nausea & Verified 11/15/17 10:51 Vomiting morphine AdvReac Nausea & Verified 11/15/17 10:51 Vomiting Surgical - Exam Vital Signs Temp Pulse Resp BP Pulse Ox 98.0 F 58 L 18 112/62 98 11/17/17 08:44 11/17/17 08:44 11/17/17 08:44 11/17/17 08:44 11/17/17 08:44 - General well developed, no distress - Eyes PERRL - ENT normal pinna - Neck no masses - Respiratory normal expansion - Cardiovascular Rhythm: regular - Abdomen Abdomen: soft, non tender Assessment and Plan Assessment: We'll perform screening colonoscopy.
--- NOTE | 2017-11-17 09:16 | P.OP ---
Date of Procedure: 11/17/17 Preoperative Diagnosis: Screening colonoscopy Postoperative Diagnosis: Diverticulosis Procedure(s) Performed: Colonoscopy Anesthesia: MAC Surgeon: Kulwinder Morales Pathology: none sent Condition: stable Disposition: PACU Description of Procedure: The patient's placed on the endoscopy table lateral position. She received IV sedation. Digital rectal exam was performed which revealed no abnormalities. The flexible colonoscope was then placed patient anus passed throughout the entire colon. The ileocecal valve was visualized. The cecum, ascending and transverse colon appeared normal. The descending and sigmoid colon contained a few diverticula. Scope was then brought back the rectum and this appeared normal. Scope was withdrawn for patient.
[2017-11-17 09:31] VITALS: BP 100/53; PULSE 78; RESP 18
== END 2017-11-17 09:46 | disposition home or self-care (01) ==
LOC: ORWHC2ENDO 07:56
PROVIDERS: ATTEND Surgery
DX: Z12.11 Encounter for screening for malignant neoplasm of colon (principal); K57.30 Diverticulosis of large intestine without perforation or abscess without bleeding; K21.9 Gastro-esophageal reflux disease without esophagitis; F17.200 Nicotine dependence, unspecified, uncomplicated; F32.9 Major depressive disorder, single episode, unspecified; M19.90 Unspecified osteoarthritis, unspecified site; G47.30 Sleep apnea, unspecified; R32 Unspecified urinary incontinence; Z79.899 Other long term (current) drug therapy; Z88.5 Allergy status to narcotic agent; Z86.718 Personal history of other venous thrombosis and embolism

== ENCOUNTER → 2018-04-05 | Outpatient (CLI) | payer OTHER ==
[2018-04-05 11:41] LABS: HCT 48.3 % (34.0-46.0); HGB 16.2 gm/dL (11.4-16.0); MCH 31.1 pg (25.0-35.0); MCHC 33.6 g/dL (31.0-37.0); MCV 92.7 fL (80.0-100.0); Platelet Count 237 k/uL (150-450); RBC 5.21 m/uL (3.80-5.40); RDW 12.5 % (11.5-15.5); WBC 6.3 k/uL (3.8-10.6)
[2018-04-05 12:00] LABS: ALT 37 U/L (9-52); AST 26 U/L (14-36); Albumin 4.4 g/dL (3.5-5.0); Alkaline Phosphatase 57 U/L (38-126); Anion Gap 7 mmol/L; Appearance,Urine Clear (Clear); Bilirubin,Urine Negative (Negative); Blood Urea Nitrogen 15 mg/dL (7-17); Blood,Urine Moderate (Negative); Calcium 9.9 mg/dL (8.4-10.2); Carbon Dioxide 23 mmol/L (22-30); Chloride 108 mmol/L (98-107); Color,Urine Yellow; Glucose 92 mg/dL (74-99); Glucose,Urine (UA) Negative (Negative); Ketones,Urine Negative (Negative); Leukocyte Esterase,Urine Moderate (Negative); Mucus,Urine Rare /hpf; Nitrite,Urine Negative (Negative); Potassium 4.9 mmol/L (3.5-5.1); Protein,Urine Negative (Negative); RBC,Urine 20 /hpf (0-5); Sodium 138 mmol/L (137-145); Specific Gravity,Urine 1.016 (1.001-1.035); Squamous Epithelial Cell,Urine 2 /hpf (0-4); Total Bilirubin 0.6 mg/dL (0.2-1.3); Total Protein 7.1 g/dL (6.3-8.2); Urobilinogen,Urine <2.0 mg/dL (<2.0); WBC,Urine <1 /hpf (0-5)
[2018-04-05 12:25] LABS: Partial Thromboplastin Time 24.3 sec (22.0-30.0); Prothrombin Time 9.9 sec (9.0-12.0)
== END | disposition home or self-care (01) ==
LOC: LABPAT 11:00
PROVIDERS: ATTEND Orthopaedic Surgery Hand Surgery
DX: Z01.818 Encounter for other preprocedural examination (principal); Z01.812 Encounter for preprocedural laboratory examination
CPT/HCPCS: 36415; 80053; 81001; 85027; 85610; 85730; 87070; 93005

== ENCOUNTER → 2018-05-02 | Outpatient (CLI) | payer OTHER ==
--- NOTE | 2018-05-02 17:16 | US ---
EXAMINATION TYPE: US thyroid st tissue head/neck DATE OF EXAM: 05/02/2018 COMPARISON: NONE CLINICAL HISTORY: E04.1 Thyroid nodule. Left neck pain, thyroid nodules seen on previous carotid ultr asound GLAND SIZE: Right Lobe: 4.3 x 1.5 x 1.5 cm Overall Parenchyma: heterogenous Left Lobe: 5.2 x 2.3 x 2.0 cm Overall Parenchyma: heterogeneous Isthmus Thickness: 0.2 cm NODULES RIGHT: # of nodules measured on right: 1 1. 0.8 X 0.5 x 0.8 cm hypoechoic mixed nodule at the upper pole with well-defined margins. This nod ule is wider than tall and shows no intranodular vascularity. Prior size: no previous LEFT: # of nodules measured on left: 1 1. 2.8 X 1.4 x 2.3 cm isoechoic solid nodule at the upper pole with well-defined margins. This nodu le is wider than tall and shows intranodular vascularity. Prior size: no previous ISTHMUS: # of nodules measured in the isthmus: 0 Bilateral neck scanned, no evidence of lymphadenopathy. Catechist notes: Heterogeneous gland with enlarged left lobe and bilateral nodules described above. IMPRESSION: Solid 2.8 cm nodule on the left. FNA should be considered.
== END | disposition home or self-care (01) ==
LOC: RADUSWWP 09:49
PROVIDERS: ATTEND Internal Medicine
DX: E04.1 Nontoxic single thyroid nodule (principal)
CPT/HCPCS: 76536

== ENCOUNTER 2018-05-08 09:20 | Inpatient (IN) | payer OTHER ==
[2018-05-01 17:38] VITALS: BMI 23.7
[~2018-05-08 09:20] MED LIST changes: +DEXAMETHASONE SOD PHOSPHATE 10 MG/ML 1 ML VIAL IV ONE; +HYDROmorphone 0.5 MG/0.5 ML SYRINGE IVP PRN; -LACTATED RINGERS 1,000 ML IV SCH; +ONDANSETRON 4 MG/2 ML VIAL IVP ONE; +ROPIVACAINE 246.25 MG, EPINEPHrine 0.5 MG, KETOROLAC 30 MG, cloNIDine HCL/PF 80 MCG, WA... MISCELLANE ONE; +ceFAZolin IN SWFI 2 GM/20 ML SYRINGE IVP ONE
[2018-05-08] MEDS: LACTATED RINGERS 1,000 ML IV SCH ×3 (11:14→14:06)
[2018-05-08] MEDS ORDERED: LIDOCAINE 1% 20 ML VIAL (10MG/ML) FOR IV START INTRADERMA ONE (11:15)
[2018-05-08] MEDS ORDERED: ONDANSETRON 4 MG/2 ML VIAL IVP PRN (11:17)
[2018-05-08] MEDS ORDERED: MAGNESIUM HYDROXIDE 2,400 MG/10 ML CUP PO PRN (11:17)
[2018-05-08] MEDS ORDERED: hydrOXYzine PAMOATE 25 MG CAP PO PRN (11:17)
[2018-05-08] MEDS ORDERED: HYDROmorphone 1 MG/ML 1 ML SYRINGE IVP PRN ×3 (11:17)
[2018-05-08] MEDS ORDERED: NALOXONE 0.4 MG/ML 1 ML VIAL IV PRN (11:17)
[2018-05-08] MEDS ORDERED: DIAZEPAM 5 MG TAB PO PRN ×2 (11:17)
[2018-05-08] MEDS ORDERED: ACETAMINOPHEN TAB 500 MG TAB PO ONE (11:30)
[2018-05-08] MEDS ORDERED: MELOXICAM 7.5 MG TAB PO ONE (11:30)
[2018-05-08] MEDS ORDERED: fentaNYL (PF) 50 MCG/ML 2 ML AMP ONE (12:04)
[2018-05-08] MEDS ORDERED: SODIUM CHLORIDE 0.9% 100 ML BAG ONE (12:04)
[2018-05-08] MEDS ORDERED: diphenhydrAMINE 50 MG/ML 1 ML VIAL ONE (12:04)
[2018-05-08] MEDS ORDERED: TRANEXAMIC ACID 1,000 MG/10 ML VIAL ONE (12:04)
[2018-05-08] MEDS ORDERED: HEPARIN SODIUM,PORCINE 10,000 UNIT/ML 1 ML VIAL ONE (12:04)
[2018-05-08] MEDS ORDERED: SODIUM CHLORIDE 0.9% IRRIG 1,000 ML BTL IRRIGATION ONE (12:04)
[2018-05-08] MEDS ORDERED: MIDAZOLAM 2 MG/2 ML VIAL ONE (12:04)
[2018-05-08] MEDS ORDERED: TRANEXAMIC ACID 2,000 MG in SODIUM CHLORIDE 0.9% 100 ML IRRIGATION ONE (12:20)
[2018-05-08] MEDS ORDERED: ceFAZolin 3,000 MG in SODIUM CHLORIDE 0.9% IRRIGATIO 3,000 ML IRRIGATION ONE (12:29)
[2018-05-08] MEDS ORDERED: LACTATED RINGERS 1,000 ML IV ONE (13:04)
--- NOTE | 2018-05-08 13:11 | P.OP ---
Date of Procedure: 05/08/18 Preoperative Diagnosis: Severe osteoarthritis left hip Postoperative Diagnosis: Severe osteoarthritis left hip Procedure(s) Performed: Left total hip arthroplasty with a direct anterior approach Implants: Banda and nephew Polarstem size 2 standard Banda [employer] Nephew R3, 3 hole acetabular shell, 52 mm Banda [employer] Nephew reflection 6.5 mm cancellus screw, 20 mm 2 Banda [employer] Nephew R3, XLPE 20 acetabular liner Banda & Nephew Oxinium femoral head 36 m, +0 All components were press-fit. The articulation is Oxinium on polyethylene. Anesthesia: spinal Surgeon: Lavon Elder Lap Welder #1: Karishma Kc Estimated Blood Loss (ml): 150 (63 mL returned with Cell Saver) Pathology: other (Femoral head) Condition: stable Disposition: PACU Indications for Procedure: After failure of conservative treatment we discussed the surgical and nonsurgical treatment options at length. Patient wishes to proceed with a total hip arthroplasty with a direct anterior approach. Complications specific to this procedure were discussed at length, including but not limited to infection, leg length discrepancy, dislocation, and nerve injury. Patient is aware of all these complications and informed consent was obtained Operative Findings: The operative findings are consistent with severe osteoarthritis of the left hip Description of Procedure: Patient was seen and evaluated in the preoperative area, consent was reviewed, and the surgical site was marked with a skin marker. Patient was then brought to the operating room and given prophylactic antibiotics intravenously. 1 g of Tranexamic acid was also given. A spinal anesthetic was administered by the anesthesia department. The patient was then placed on the [place] table with the bony prominences well-padded. The hip area was then prepped and draped in usual sterile fashion. A universal timeout was then performed, which confirmed the patient's name, surgical site, ALLERGIES, and procedure being performed. Next the incision site was located at 1 cm distal and 1 cm lateral to the anterior superior iliac spine. The skin and subcutaneous tissues were sharply incised. Incision was carefully dissected down to the fascia overlying the tensor fascia bessie muscle. This fascia was then incised in line with the incision. Next, using blunt finger dissection, the tensor fascia bessie muscle was dissected off its investing fascia. The muscle was then carefully retracted laterally with a cobra retractor over the lateral neck of the femur. Next, the circumflex vessels were identified and cauterized using the AquaMantis device. The anterior hip capsule was then exposed. The capsule was then opened and an inverted T fashion. Cobra retractors were then placed intracapsularly. The proximal femur was then visualized. The femoral neck was then osteotomized appropriate level above the lesser trochanter. Small amount of traction was placed with the [place] table. A small wedge of bone was then removed from the remaining femoral head. Next, using a corkscrew femoral head was easily removed from the acetabulum. On gross visual inspection, the femoral head had complete loss of articular cartilage in multiple periarticular osteophytes. Attention was then turned to the acetabulum. the acetabulum was exposed and any remaining labrum was excised. Sequential reaming of the acetabulum was performed using fluoroscopic guidance. When the appropriate size was reached, a trial was then placed. The position and fit of the trial was checked with fluoroscopy. The trial was then removed. Then, using fluoroscopic guidance, the final implant was impacted at 20 of anteversion and 40 of abduction, and fully seated in the acetabulum. 2 screws were then placed in the acetabulum. Again fluoroscopy was used to check position of the screws. Next, the liner was then impacted, with a 20 elevated liner located in the anterior superior quadrant. Component locking was confirmed. Attention was then directed to the femur. With the aid of the [place] table, the femur was externally rotated to approximately 130, extended, and abducted under the opposite leg. A side hook was then placed under the proximal femur, and the side hook elevator was used to elevate the proximal femur. Retractors were then placed. A capsular release was performed, as well as a release of the conjoined tendon, which afforded excellent visualization of the proximal femur. Next, a box osteotome was used to lateralize the proximal femur. A hand hose cutter was then used to locate the femoral canal. Sequential broaching was then performed with appropriate size which afforded excellent fixation in the proximal femur. A trial was then placed with appropriate head and neck, and the hip was gently reduced with the aid of the [place] table. Fluoroscopy was then used to check position of the components, as well as to ensure equal leg lengths. The hip was then gently dislocated and the trials were then removed. Final implants were then impacted and the hip was again reduced. Final fluoroscopic x-rays confirmed that the components were in anatomic position, as well as equal leg lengths. The hip was also taken through range of motion, and found to be stable. The hip was then copiously irrigated with antibiotic solution with pulsatile lavage. The hip was then irrigated with Irrisept solution. The soft tissues were then injected with a ropivacaine solution, which consisted of 246.25 mg of ropivacaine, 0.5 mg of epinephrine, 30 mg of Toradol, 80 g of clonidine, and 48.45 mL of sterile water, for a total of 100 mL of fluid injected. A second dose of 1 g of Tranexamic acid was also given. the fascia was then closed with 2-0 strata fix suture. The subcutaneous tissue was closed with 3-0 Vicryl. The subcuticular tissue was closed with 3-0 strata fix suture. The skin was then closed with Dermabond glue and a sterile silver dressing. The patient was then transferred to the recovery room in stable condition. The recruiting assistant SURYA Reina was required due to the complexity of surgery, and the need for skilled assistant city attorney for positioning, draping, exposure, retraction, and closure of the wound.
--- NOTE | 2018-05-08 13:16 | FL ---
Fluoroscopy HISTORY: Left hip arthroplasty 26 seconds fluoroscopy time supplied to the referring clinician. 2 intraoperative C-arm images docum ent the procedure. See dictated report from orthopedic surgery.
--- NOTE | 2018-05-08 13:17 | XR ---
Limited left hip HISTORY: Left hip arthroplasty 2 intraoperative C-arm images document the procedure.
--- NOTE | 2018-05-08 13:55 | XR ---
Limited left hip HISTORY: Status post left hip arthroplasty Single frontal view of the left hip Patient is status post left hip arthroplasty. Lucency present in the soft tissues compatible with pos top state. Alignment is maintained. IMPRESSION: Orthopedic follow-up.
[2018-05-08] MEDS: SODIUM CHLORIDE 0.9% 1,000 ML IV SCH (14:05)
[2018-05-08] MEDS ORDERED: SODIUM CHLORIDE 0.9% 1,000 ML IV ONE (16:30)
[2018-05-08] MEDS: HYDROcodone/APAP 5-325MG 1 EACH TAB PO PRN ×2 (18:26→23:52)
[2018-05-08] MEDS: ceFAZolin IN SWFI 2 GM/20 ML SYRINGE IVP SCH (20:37)
[2018-05-08] MEDS: ASPIRIN 325 MG TAB PO SCH (20:37)
[2018-05-08] MEDS ORDERED: SENNOSIDES-DOCUSATE SODIUM 1 EACH TAB PO SCH (21:00)
[2018-05-08] MEDS ORDERED: SERTRALINE 50 MG TAB PO SCH (21:00)
[2018-05-09 01:29] VITALS: RESP 16
[2018-05-09] MEDS: SODIUM CHLORIDE 0.9% 1,000 ML IV SCH (04:20)
[2018-05-09] MEDS: HYDROcodone/APAP 5-325MG 1 EACH TAB PO PRN ×2 (05:53→11:17)
[2018-05-09] MEDS: ceFAZolin IN SWFI 2 GM/20 ML SYRINGE IVP SCH (05:53)
[2018-05-09] MEDS: LACTATED RINGERS 1,000 ML IV SCH ×2 (07:34→11:02)
[2018-05-09 07:44] LABS: Basophils % (A) 0 %; Eosinophils # (A) 0.1 k/uL (0-0.7); Eosinophils % (A) 0 %; HGB 12.2 gm/dL (11.4-16.0); Lymphocytes # (A) 1.8 k/uL (1.0-4.8); Lymphocytes % (A) 13 %; MCH 30.4 pg (25.0-35.0); MCHC 31.3 g/dL (31.0-37.0); MCV 97.3 fL (80.0-100.0); Mean Platelet Volume 7.3; Monocytes # (A) 0.7 k/uL (0-1.0); Monocytes % (A) 5 %; Neutrophils % (A) 80 %; Platelet Count 193 k/uL (150-450); RBC 4.01 m/uL (3.80-5.40); RDW 12.8 % (11.5-15.5); WBC 13.7 k/uL (3.8-10.6)
[2018-05-09 07:54] LABS: ALT 74 U/L (9-52); AST 97 U/L (14-36); Albumin 2.8 g/dL (3.5-5.0); Alkaline Phosphatase 45 U/L (38-126); Anion Gap 6 mmol/L; Blood Urea Nitrogen 13 mg/dL (7-17); Calcium 8.4 mg/dL (8.4-10.2); Carbon Dioxide 23 mmol/L (22-30); Chloride 109 mmol/L (98-107); Glucose 94 mg/dL (74-99); Potassium 4.6 mmol/L (3.5-5.1); Sodium 138 mmol/L (137-145); Total Bilirubin 0.4 mg/dL (0.2-1.3); Total Protein 5.2 g/dL (6.3-8.2)
[2018-05-09] MEDS: ASPIRIN 325 MG TAB PO SCH (08:25)
--- NOTE | 2018-05-09 08:51 | P.DS ---
Providers Date of admission: 05/08/18 10:29 Expected date of discharge: 05/09/18 Attending physician: Lavon Elder Consults: 05/08/18 11:17 Consult Physician Routine Consulting Provider: Luis Angel Decker Consult Reason/Comments: medical management and anticoagulation Do you want consulting provider notified?: Yes Primary care physician: Byron Lara - Discharge Diagnosis(es) (1) Primary osteoarthritis of left hip Current Visit: Yes Status: Acute (2) S/P total hip arthroplasty Current Visit: Yes Status: Acute Hospital Course: This is a 62-year-old female with known history of degenerative arthritis of the left hip. The patient presents for evaluation. After discussion and consideration patient elects to proceed with total hip arthroplasty. The patient is seen preoperatively by Dr. Elder and medically cleared for surgery by their primary care physician. Patient is admitted to [facility] on 05/08/2018 for total hip arthroplasty. The procedures performed without complication or sequelae. The patient is doing well postoperatively. Labs and vital signs are stable on day of discharge. On day of discharge patient's hip incision is healing well. There is minimal erythema. There is no drainage noted at this time. There is minimal soft tissue swelling to the hip and thigh. Patient has full foot and ankle motion without difficulty or pain. Neurovascular status to the left lower extremity is intact. Patient is discharged home in good condition. Please see med rec for accurate list of home medications. Plan - Discharge Summary Discharge Rx Participant: Yes New Discharge Prescriptions: New Aspirin 325 mg PO BID #60 tab HYDROcodone/APAP 5-325MG [[place] 5-325] 1 - 2 tab PO Q4-6H PRN #84 tab PRN Reason: Pain Sennosides [Senokot] 1 tab PO BID #60 tablet No Action Sertraline [Zoloft] 50 mg PO HS Amoxicillin 500 mg PO TID Discharge Medication List Amoxicillin 500 mg PO TID 05/01/18 [History] Sertraline [Zoloft] 50 mg PO HS 05/01/18 [History] Aspirin 325 mg PO BID #60 tab 05/09/18 [Rx] HYDROcodone/APAP 5-325MG [[place] 5-325] 1 - 2 tab PO Q4-6H PRN #84 tab 05/09/18 [ Rx] Sennosides [Senokot] 1 tab PO BID #60 tablet 05/09/18 [Rx] Follow up Appointment(s)/Referral(s): Lavon Elder DO [Doctor of Osteopathic Medicine] - 2 Weeks Activity/Diet/Wound Care/Special Instructions: Weightbearing as tolerated with walker Leave dressing intact. Dressing may be removed by home care nurse in 10 days. May shower with dressing on. Follow-up with [facility] in 2 weeks, please call with any questions or concerns [phone] Discharge Disposition: HOME WITH HOME HEALTH SERVICES
[2018-05-09] MEDS ORDERED: MELOXICAM 7.5 MG TAB PO SCH (09:00)
[2018-05-09] MEDS ORDERED: HYDROmorphone 2 MG TAB PO PRN ×2 (13:21→13:22)
[2018-05-09] MEDS ORDERED: HYDROmorphone 4 MG TABLET PO PRN (13:23)
[2018-05-09 14:25] VITALS: BP 106/62; PULSE 60; TEMP 98.2
--- NOTE | 2018-05-10 14:50 | P.CONS ---
History of Present Illness - Reason for Consult Consult date: 05/09/18 Medical management - History of Present Illness This is a 62-year-old female patient of Dr. Lara with past medical history of osteoarthritis, obstructive sleep apnea not on CPAP, osteoarthritis. Patient has been brought into the hospital under the care of Dr. Thomson status post left hip arthroplasty anterior approach. She had low blood pressure last evening and fluid bolus was given. Patient states her blood pressure is always low and usually not above 90. Blood pressure last night with systolic of 70. Heart rate was in the 40s. Patient denies any shortness of breath, chest pain. She does not have any history of myocardial infarction or diabetes. She is an active smoker and denies diagnosis of COPD. She is noted to have an elevated AST and 97 and ALT at 74 which will be checked as an outpatient. Albumin level is low at 2.8. Blood pressure this morning is running systolic 106-98. Patient is cleared medically for discharge home with plan for follow-up liver function tests as an outpatient. Review of Systems All systems: negative Constitutional: Denies chills, Denies fever, Denies poor appetite, Denies weight loss Eyes: denies blurred vision, denies pain Ears, nose, mouth and throat: Denies headache, Denies sore throat, Denies vertigo Cardiovascular: Denies chest pain, Denies decreased exercise tolerance, Denies dyspnea on exertion, Denies leg edema, Denies lightheadedness, Denies palpitations, Denies paroxysmal nocturnal dyspnea, Denies shortness of breath, Denies syncope Respiratory: Denies cough, Denies cough with sputum, Denies dyspnea, Denies excessive sputum, Denies hemoptysis, Denies home oxygen, Denies wheezing Gastrointestinal: Denies abdominal pain, Denies diarrhea, Denies loss of appetite, Denies melena, Denies nausea, Denies vomiting Genitourinary: Denies dysuria, Denies hematuria Musculoskeletal: Denies myalgias Integumentary: Denies pruritus, Denies rash Neurological: Denies numbness, Denies weakness Psychiatric: Denies anxiety, Denies depression Endocrine: Denies fatigue, Denies weight change Past Medical History Past Medical History: Memory Impairment, Musculoskeletal Disorder, Osteoarthritis (OA), Pneumonia, Sleep Apnea/CPAP/BIPAP Additional Past Medical History / Comment(s): Hx Blood clot bottom left foot, does not use CPAP or BIPAP,urinary leakage, DDD, put on antibiotic by Dr East for jaw pain-doesn't think is an infected tooth-very small spot on x-ray, but follows up w/him , to have thyroid U/S for nodules History of Any Multi-Drug Resistant Organisms: None Reported Past Surgical History: Bladder Surgery, Section, Cholecystectomy, Hernia Repair, Hysterectomy, Joint Replacement, Orthopedic Surgery, Tonsillectomy Additional Past Surgical History / Comment(s): Total right hip arthroplasty, left knee arthroscopy x 2, EGD, bladder suspension Past Anesthesia/Blood Transfusion Reactions: No Reported Reaction Past Psychological History: Anxiety, Depression Additional Psychological History / Comment(s): Pt states medication for anxiety and depression work well. She lives with her significant other. She uses no assistive device. She borrowed a walker for post op. She drives. Smoking Status: Current every day smoker Past Alcohol Use History: None Reported Additional Past Alcohol Use History / Comment(s): smokes 1 PPD,started smoking at age 20 Past Drug Use History: None Reported - Past Family History Mother Family Medical History: Cancer Additional Family Medical History / Comment(s): Pt does not recall type of cancer. Sister(s) Family Medical History: Cancer Father Family Medical History: No Reported History Additional Family Medical History / Comment(s): Father was healthy until the time of his at age 85 yrs. He did have history of diabetes and myocardial infarction. Patient is 2 brothers and 2 sisters with no major medical problems. Medications and Allergies Home Medications Medication Instructions Recorded Confirmed Type Amoxicillin 500 mg PO TID 05/01/18 05/08/18 History Sertraline [Zoloft] 50 mg PO HS 05/01/18 05/08/18 History Aspirin 325 mg PO BID #60 tab 05/09/18 Rx HYDROcodone/APAP 5-325MG [[place] 1 - 2 tab PO Q4-6H PRN #84 tab 05/09/18 Rx 5-325] Sennosides [Senokot] 1 tab PO BID #60 tablet 05/09/18 Rx Allergies Allergy/AdvReac Type Severity Reaction Status Date / Time codeine AdvReac Nausea & Verified 05/01/18 17:27 Vomiting morphine AdvReac Nausea & Verified 05/01/18 17:27 Vomiting Physical Exam Vitals: Vital Signs Temp Pulse Pulse Resp BP Pulse Ox 05/09/18 14:25 98.2 F 60 16 106/62 94 L 05/09/18 07:26 45 L 05/09/18 07:00 97.7 F 48 L 16 98/63 96 05/08/18 23:58 98.3 F 49 L 16 89/53 95 05/08/18 19:23 98.3 F 45 L 14 83/52 05/08/18 18:24 65 92/54 05/08/18 17:32 50 L 95/60 05/08/18 17:28 46 L 90/58 05/08/18 17:27 48 L 91/59 05/08/18 17:15 61 101/63 05/08/18 16:45 50 L 70/43 05/08/18 16:30 49 L 74/52 05/08/18 16:15 47 L 74/47 05/08/18 16:00 50 L 77/52 05/08/18 15:45 56 L 96/63 05/08/18 15:30 48 L 91/58 05/08/18 15:15 49 L 93/60 05/08/18 15:00 49 L 88/56 Intake and Output 05/08/18 05/09/18 05/09/18 22:59 06:59 14:59 Intake Total 720 Output Total 350 Balance -350 720 Intake: Intake, IV Titration 520 Amount Sodium Chloride 0.9% 1, 520 000 ml @ 65 mls/hr IV . [id number] [facility] Rx#:[id number] Oral 200 Output: Urine 350 Other: Voiding Method Bedside Commode # Voids 3 Gen: This is a 62-year-old female patient. She is sitting up in bed and appears to be comfortable and in no acute distress. HEENT: Head is atraumatic, normocephalic. Pupils equal, round. Sclerae is anicteric. NECK: Supple. No JVD. No lymphadenopathy. No thyromegaly. LUNGS: Clear to auscultation. No wheezes or rhonchi. No intercostal retractions. HEART: Regular rate and rhythm. No murmur. ABDOMEN: Soft. Bowel sounds are present. No masses. No tenderness. EXTREMITIES: No pedal edema. No calf tenderness. Small dressing in place to the left hip with no breakthrough drainage or bleeding. NEUROLOGICAL: Patient is awake, alert and oriented x3. Cranial nerves 2 through 12 are grossly intact. Results CBC & Chem 7: 05/09/18 07:01 05/09/18 07:01 Labs: Abnormal Lab Results - Last 24 Hours (Table) 05/09/18 05/09/18 Range/Units 07:01 07:01 WBC 13.7 H (3.8-10.6) k/uL Neutrophils # 11.0 H (1.3-7.7) k/uL Chloride 109 H (98-107) mmol/L AST 97 H (14-36) U/L ALT 74 H (9-52) U/L Total Protein 5.2 L (6.3-8.2) g/dL Albumin 2.8 L (3.5-5.0) g/dL Assessment and Plan Plan: 1. Osteoarthritis status post left total hip arthroplasty, anterior approach. Continue current pain management, PT, OT, activity per orthopedics. Continue incentive spirometry to reduce incidence of atelectasis and hospital-acquired pneumonia. 2. Obstructive sleep apnea not on CPAP. 3. Elevated liver function tests. Patient to have recheck as an outpatient. 4. Hypotension status post 1 L of IV fluids. Patient is currently stable. 5. Tobacco use and dependence. Smoking cessation. 6. Depression, recurrent. Continue Zoloft. Discharge plan: [facility] Impression and plan of care have been directed as dictated by the signing physician. Miranda Washburn nurse practitioner acting as scribe for signing physician.
--- NOTE | 2018-05-11 10:16 | ECHOF ---
Referral Reason:bradycardia MEASUREMENTS -------- HEIGHT: 165.1 cm WEIGHT: 66.7 kg BP: 189/53 RVIDd: 2.5 cm (< 3.3) IVSd: 1.0 cm (0.6 - 1.1) LVIDd: 4.4 cm (3.9 - 5.3) LVPWd: 0.9 cm (0.6 - 1.1) IVSs: 1.3 cm LVIDs: 3.0 cm LVPWs: 1.1 cm LA Diam: 2.8 cm (2.7 - 3.8) Ao Diam: 2.8 cm (2.0 - 3.7) AV Cusp: 1.4 cm (1.5 - 2.6) LA Diam: 3.5 cm (2.7 - 3.8) MV EXCURSION: 15.618 mm (> 18.000) MV EF SLOPE: 111 mm/s (70 - 150) EPSS: 0.4 cm MV E Deacon: 0.78 m/s MV DecT: 213 ms MV A Deacon: 0.60 m/s MV E/A Ratio: 1.30 RAP: 5.00 mmHg RVSP: 16.65 mmHg FINDINGS -------- Sinus rhythm. This was a technically adequate study. LV size, wall thickness and systolic function are normal, with an EF greater than 55%. The left gabrielle tricular size is normal. The right ventricle is normal in size. The left atrial size is normal. The right atrial size is normal. The aortic valve is trileaflet, and appears structurally normal. No aortic stenosis or regurgitation. Mild mitral regurgitation is present. Mild tricuspid regurgitation present. There is no evidence of pulmonary hypertension. The right v entricular systolic pressure, as measured by Doppler, is 16.65mmHg. There is no pulmonic regurgitation present. The aortic root size is normal. There is no pericardial effusion. CONCLUSIONS -------- 1. LV size, wall thickness and systolic function are normal, with an EF greater than 55%. 2. The left ventricular size is normal. 3. The right ventricle is normal in size. 4. The left atrial size is normal. 5. The right atrial size is normal. 6. The aortic valve is trileaflet, and appears structurally normal. No aortic stenosis or regurgitati on. 7. Mild mitral regurgitation is present. 8. Mild tricuspid regurgitation present. 9. There is no evidence of pulmonary hypertension. 10. The right ventricular systolic pressure, as measured by Doppler, is 16.65mmHg. 11. There is no pulmonic regurgitation present. 12. The aortic root size is normal. 13. There is no pericardial effusion. ETL ANALYST: Anel Tellez RDCS
== END 2018-05-09 16:17 | disposition home health service (06) | DRG 470 ==
LOC: 2ORMAIN 10:29 → 3SUR 13:19
PROVIDERS: ADMIT Orthopaedic Surgery; ATTEND Orthopaedic Surgery
PROC: 30233N0 Transfusion of Autologous Red Blood Cells into Peripheral Vein, Percutaneous Approach (ICD-10-PCS; 2018-05-08)
PROC: 0SRB06A Replacement of Left Hip Joint with Oxidized Zirconium on Polyethylene Synthetic Substitute, Uncemented, Open Approach (ICD-10-PCS; principal; 2018-05-08 12:20)
DX: M16.12 Unilateral primary osteoarthritis, left hip (principal); F32.9 Major depressive disorder, single episode, unspecified; K21.9 Gastro-esophageal reflux disease without esophagitis; K58.9 Irritable bowel syndrome, unspecified; F41.9 Anxiety disorder, unspecified; N39.41 Urge incontinence; N32.81 Overactive bladder; Z71.6 Tobacco abuse counseling; F17.210 Nicotine dependence, cigarettes, uncomplicated; Z79.899 Other long term (current) drug therapy; Z86.718 Personal history of other venous thrombosis and embolism; Z96.641 Presence of right artificial hip joint; Z90.710 Acquired absence of both cervix and uterus; Z90.49 Acquired absence of other specified parts of digestive tract; Z88.5 Allergy status to narcotic agent; Z82.49 Family history of ischemic heart disease and other diseases of the circulatory system; Z80.9 Family history of malignant neoplasm, unspecified; Z81.8 Family history of other mental and behavioral disorders; Z83.79 Family history of other diseases of the digestive system; Z82.2 Family history of deafness and hearing loss
CPT/HCPCS: 73501; 80053; 85025; 86850; 86891; 86900; 86901; 88300; 93005; 93306

== ENCOUNTER → 2018-06-22 | Outpatient (CLI) | payer OTHER ==
[2018-06-22 16:32] LABS: Basophils # (A) 0.1 k/uL (0-0.2); Basophils % (A) 0 %; Eosinophils # (A) 0.1 k/uL (0-0.7); Eosinophils % (A) 1 %; HCT 50.1 % (34.0-46.0); Lymphocytes # (A) 4.4 k/uL (1.0-4.8); Lymphocytes % (A) 26 %; MCH 30.8 pg (25.0-35.0); MCHC 32.2 g/dL (31.0-37.0); MCV 95.8 fL (80.0-100.0); Mean Platelet Volume 7.9; Monocytes # (A) 0.8 k/uL (0-1.0); Monocytes % (A) 5 %; Neutrophils # (A) 11.3 k/uL (1.3-7.7); Neutrophils % (A) 67 %; Platelet Count 312 k/uL (150-450); RBC 5.23 m/uL (3.80-5.40); RDW 13.1 % (11.5-15.5); WBC 16.9 k/uL (3.8-10.6)
[2018-06-22 16:35] LABS: HGB 16.1 gm/dL (11.4-16.0)
[2018-06-22 19:22] LABS: Erythrocyte Sedimentation Rate 1 mm/hr (0-20)
== END ==
LOC: LABWHC1 15:20
PROVIDERS: ATTEND Orthopaedic Surgery
DX: Z47.1 Aftercare following joint replacement surgery (principal); M25.552 Pain in left hip; Z96.642 Presence of left artificial hip joint; F17.210 Nicotine dependence, cigarettes, uncomplicated; K21.0 Gastro-esophageal reflux disease with esophagitis
CPT/HCPCS: 36415; 85025; 85652; 86140

== ENCOUNTER → 2018-07-26 | Outpatient (CLI) | payer OTHER ==
--- NOTE | 2018-07-26 09:22 | CT ---
EXAMINATION TYPE: CT hip LT wo con DATE OF EXAM: 07/26/2018 COMPARISON: 06/06/2014 HISTORY: Continued pain post left hip replacement [address] DLP: 468 mGycm Automated exposure control for dose reduction was used. TECHNIQUE: CT of the left hip was performed per department protocol without contrast. FINDINGS: A left total hip arthroplasty is seen that creates spray artifact, limiting evaluation. The acetabula r component appears seated as does the femoral component. Evaluation for 3 mm surrounding lucency is difficult to appreciate given the surrounding spray artifact. There does appear to be some lucency of the medial and inferior acetabular component such as on coronal image 25. Alignment appears maintain ed. No hardware fracture is seen. No additional fracture is seen of the left hip [place] osseous struc tures. Mild degenerative changes of the left sacroiliac joint are noted. Few sigmoid colonic diverticula are present. Subcutaneous soft tissues are unremarkable. IMPRESSION: SLIGHTLY LIMITED EXAM SECONDARY TO METALLIC SPRAY ARTIFACT FROM THE TOTAL LEFT HIP ARTHROPLASTY. MINI MAL MEDIAL INFERIOR PERIPROSTHETIC LUCENCY IS SEEN SURROUNDING THE ACETABULAR COMPONENT THAT COULD RE LATE TO SEPTIC OR ASEPTIC LOOSENING AND BONE SCAN COULD FURTHER EVALUATE THIS FINDING.
== END ==
LOC: RADCTMAIN 06:53
PROVIDERS: ATTEND Orthopaedic Surgery
DX: M25.552 Pain in left hip (principal); Z96.642 Presence of left artificial hip joint

== ENCOUNTER → 2018-08-02 | Outpatient (CLI) | payer OTHER ==
--- NOTE | 2018-08-02 09:13 | CT ---
EXAMINATION TYPE: CT urogram wo/w con DATE OF EXAM: 08/02/2018 HISTORY: Hematuria CT DLP: 1814mGycm Automated Exposure Control for Dose Reduction was Utilized. CONTRAST: CT scan of the abdomen and pelvis is performed without and with IV Contrast, patient injected with 10 0 mL of Isovue 370. COMPARISON: 07/14/2016 FINDINGS: LUNG BASES: There is minimal right basilar atelectasis. LIVER/GB: Within the visualized portions no significant abnormality is appreciated. The most cranial aspect of the liver is not imaged. The gallbladder appears surgically absent although no cholecystect paulo clips are seen within the gallbladder fossa. PANCREAS: Punctate parenchymal calcifications represent sequela chronic pancreatitis. No acute peripa ncreatic fat stranding is seen. SPLEEN: Densely peripherally calcified splenic lesion is again stable and may represent an acquired f alse cyst measuring approximately 2.1 cm. ADRENALS: No significant abnormality is seen. KIDNEYS: No renal calculi are seen on the unenhanced images. 1 minute delay, 4 minute and 10 minute d elay demonstrate symmetric enhancement and excretion from both kidneys. Very small cortical scar is s een in the right upper pole on coronal series 7 image 84. There remains a too small to accurately pee racterize left midpole lesion such as on series 9 image 32 similar to the prior. There is no uroepith elial thickening or ureteral dilatation. No ureteral stricture is seen. No hydronephrosis of either [place]. No perinephric fat stranding or perinephric fluid collection. No subcapsular fluid collection. Urinary bladder is extremely limited visualization given extensive spray artifact from the bilateral hip prostheses. BOWEL: No dilated large or small bowel. Moderate amount retained colonic stool is noted throughout. LYMPH NODES: No greater than 1cm abdominal or pelvic lymph nodes are appreciated. OSSEOUS STRUCTURES: Mild multilevel degenerative changes are most pronounced at L5-S1. IMPRESSION: No renal or ureteral findings to account for the patient's hematuria however the urinary bladder is severely limited in evaluation secondary to extensive spray artifact from the bilateral hi p prostheses. Therefore if there is further concern urinary bladder ultrasound or direct visualizatio n could be performed.
== END | disposition home or self-care (01) ==
LOC: RADCTMAIN 06:48
PROVIDERS: ATTEND Urology
DX: R31.9 Hematuria, unspecified (principal); Z96.643 Presence of artificial hip joint, bilateral
CPT/HCPCS: 74178; 74400; Q9967

== ENCOUNTER → 2018-09-03 | Outpatient (CLI) | payer OTHER ==
[2018-09-03 07:20] LABS: ALT 37 U/L (9-52); AST 32 U/L (14-36); Albumin 4.3 g/dL (3.5-5.0); Alkaline Phosphatase 54 U/L (38-126); Anion Gap 8 mmol/L; Blood Urea Nitrogen 18 mg/dL (7-17); Calcium 9.8 mg/dL (8.4-10.2); Carbon Dioxide 23 mmol/L (22-30); Chloride 108 mmol/L (98-107); Glucose 85 mg/dL (74-99); INR 0.9 (<1.2); Partial Thromboplastin Time 23.6 sec (22.0-30.0); Potassium 4.5 mmol/L (3.5-5.1); Prothrombin Time 9.7 sec (9.0-12.0); Sodium 139 mmol/L (137-145); Total Bilirubin 0.4 mg/dL (0.2-1.3); Total Protein 7.1 g/dL (6.3-8.2)
[2018-09-03 07:22] LABS: Appearance,Urine Clear (Clear); Bilirubin,Urine Negative (Negative); Blood,Urine Moderate (Negative); Color,Urine Yellow; Glucose,Urine (UA) Negative (Negative); Ketones,Urine Negative (Negative); Leukocyte Esterase,Urine Negative (Negative); Mucus,Urine Rare /hpf; Nitrite,Urine Negative (Negative); Protein,Urine Negative (Negative); RBC,Urine 1 /hpf (0-5); Specific Gravity,Urine 1.012 (1.001-1.035); Squamous Epithelial Cell,Urine <1 /hpf (0-4); Urobilinogen,Urine <2.0 mg/dL (<2.0); WBC,Urine <1 /hpf (0-5)
[2018-09-03 07:24] LABS: HCT 49.7 % (34.0-46.0); HGB 15.6 gm/dL (11.4-16.0); MCH 29.4 pg (25.0-35.0); MCHC 31.4 g/dL (31.0-37.0); MCV 93.7 fL (80.0-100.0); Mean Platelet Volume 7.3; Platelet Count 265 k/uL (150-450); RBC 5.31 m/uL (3.80-5.40); RDW 12.9 % (11.5-15.5); WBC 7.1 k/uL (3.8-10.6)
== END ==
LOC: LABPAT 06:41
PROVIDERS: ATTEND Orthopaedic Surgery
DX: Z01.812 Encounter for preprocedural laboratory examination (principal); M16.12 Unilateral primary osteoarthritis, left hip
CPT/HCPCS: 36415; 80053; 81001; 85027; 85610; 85730; 87070

== ENCOUNTER 2018-09-11 11:40 | Inpatient (IN) | payer OTHER ==
[2018-09-05 11:46] VITALS: BMI 22.7
[~2018-09-11 11:40] MED LIST changes: +ACETAMINOPHEN TAB 500 MG TAB PO ONE; -HYDROmorphone 0.5 MG/0.5 ML SYRINGE IVP PRN; +LACTATED RINGERS 1,000 ML IV SCH; +LIDOCAINE 1% 20 ML VIAL (10MG/ML) FOR IV START INTRADERMA PRN; +MELOXICAM 7.5 MG TAB PO ONE; +MIDAZOLAM (PF) 2 MG/2 ML VIAL IV PRN; +SCOPOLAMINE 1.5MG/72HR PATCH TRANSDERM ONE; +TRANEXAMIC ACID 1,000 MG in SODIUM CHLORIDE 0.9% 50 ML IVPB ONE
[2018-09-11] MEDS ORDERED: HYDROmorphone 1 MG/ML 1 ML SYRINGE IVP PRN (13:47)
[2018-09-11] MEDS ORDERED: NALOXONE 0.4 MG/ML 1 ML VIAL IV PRN (13:47)
[2018-09-11] MEDS ORDERED: MAGNESIUM HYDROXIDE 2,400 MG/10 ML CUP PO PRN (13:47)
[2018-09-11] MEDS ORDERED: hydrOXYzine PAMOATE 25 MG CAP PO PRN (13:47)
[2018-09-11] MEDS ORDERED: DIAZEPAM 5 MG TAB PO PRN (13:47)
[2018-09-11] MEDS ORDERED: HYDROmorphone 0.5 MG/0.5 ML SYRINGE IVP PRN ×2 (13:47)
[2018-09-11] MEDS ORDERED: HYDROcodone/APAP 5-325MG 1 EACH TAB PO PRN (13:47)
[2018-09-11] MEDS ORDERED: ePHEDrine SULFATE/0.9% NACL/PF 50 MG/5 ML SYRINGE IV ONE (13:52)
[2018-09-11] MEDS ORDERED: TRANEXAMIC ACID 1,000 MG/10 ML VIAL ONE (13:52)
[2018-09-11] MEDS ORDERED: PROPOFOL 10 MG/ML 20 ML VIAL IV ONE (13:52)
[2018-09-11] MEDS ORDERED: MIDAZOLAM 2 MG/2 ML VIAL ONE (13:52)
[2018-09-11] MEDS ORDERED: ceFAZolin 3,000 MG in SODIUM CHLORIDE 0.9% IRRIGATIO 3,000 ML IRRIGATION ONE (13:52)
[2018-09-11] MEDS ORDERED: LACTATED RINGERS 1,000 ML BAG IV ONE (13:52)
[2018-09-11] MEDS ORDERED: PHENYLEPHRINE-0.9% NACL SYG 1 MG/10 ML SYRINGE ONE (13:52)
[2018-09-11] MEDS ORDERED: SODIUM CHLORIDE 0.9% 100 ML BAG ONE (13:52)
[2018-09-11] MEDS ORDERED: HEPARIN SODIUM,PORCINE 10,000 UNIT/ML 1 ML VIAL ONE (13:52)
[2018-09-11] MEDS ORDERED: KETAMINE 10 MG/ML 20 ML VIAL ONE (13:52)
[2018-09-11] MEDS ORDERED: LACTATED RINGERS 1,000 ML IV ONE ×3 (14:44→17:02)
--- NOTE | 2018-09-11 16:21 | XR ---
EXAMINATION TYPE: XR Hip Limited LT DATE OF EXAM: 09/11/2018 CLINICAL HISTORY: Left hip pain and osteoarthritis. Left arthroplasty revision. TECHNIQUE: Single AP portable view of left hip is obtained immediately postoperatively. COMPARISON: 05/08/2018 FINDINGS: Metallic hardware from left hip arthroplasty is seen and appears satisfactory in alignment and position. There is evidence of recent surgery with subcutaneous gas noted laterally. IMPRESSION: Metallic hardware from left hip arthroplasty is satisfactory in position.
[2018-09-11] MEDS: HYDROmorphone 0.5 MG/0.5 ML SYRINGE IVP PRN ×2 (16:55→17:00)
--- NOTE | 2018-09-11 17:19 | P.OP ---
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 The articulation is Oxinium on polyethylene. Anesthesia: spinal Surgeon: Lavon Elder Credit Control Administrator #1: Karishma Kc Estimated Blood Loss (ml): 500 (206 mL returned with Cell Saver) Pathology: other (Cultures 2. Frozen section) Condition: stable Disposition: PACU Indications for Procedure: This is a 63-year-old female who had a left total hip arthroplasty performed on 05/08/2018 she began experiencing increased pain in the groin of her left hip and x-rays demonstrated possible loosening of the acetabular component. After failure of conservative treatment I discussed the surgical nonsurgical treatment options with her at length and she wishes to proceed with a revision of her left total hip arthroplasty. Informed consent was obtained. Operative Findings: The operative findings are consistent with loosening left acetabular component. Femoral component was well fixed. The frozen section was found to be negative for infection Description of Procedure: Patient was seen and evaluated in the preoperative area, consent was reviewed, and the surgical site was marked with a skin marker. Patient was then brought to the operating room and given prophylactic antibiotics intravenously. 1 g of Tranexamic acid was also given. A spinal anesthetic was administered by the anesthesia department. The patient was then placed on the operative table and placed in the lateral decubitus position with the bony prominences well-padded. The hip area was then prepped and draped in usual sterile fashion. A universal timeout was then performed, which confirmed the patient's name, surgical site, ALLERGIES, and procedure being performed. Next the incision site was located in the lateral aspect of the hip, centered at the tip of the greater trochanter.. The skin and subcutaneous tissues were sharply incised. Incision was carefully dissected down to the fascia. This fascia was then incised in line with the incision. Next, a Charnley retractor was then placed in the abductors were identified. The anterior one third of the abductors was released off the trochanter and one large sleeve. The anterior hip capsule was then exposed. The capsule was then opened. The proximal femur was then visualized. The hip was then gently dislocated. Cultures 2 were taken, as well as a frozen section of the synovium which was found to show no acute inflammation. The femoral head was then removed with an osteotome and a mallet. The femoral component was inspected and found to be well fixed.. Attention was then turned to the acetabulum. The acetabulum was exposed, and the polyethylene liner was then removed from the acetabulum. The screws were then removed from the acetabulum, the acetabular component was found to be grossly loose. Acetabular component was then easily removed. Sequential reaming of the acetabulum was then performed with a trial being placed which is found to have a secure fit. The final acetabular component was then impacted in appropriate anteversion and inclination and fully seated in the acetabulum. 4 screws then placed in the acetabulum. Final acetabular liner was then placed with the elevated liner and anterior superior quadrant. Next the femoral head trial was then placed. The hip was gently reduced. The leg lengths were checked and found to be equal. Hip was then taken through full range of motion, was stable throughout. Next, the hip was gently dislocated, and the trials were removed. Final implants were then impacted and the hip was again reduced. The leg lengths were again examined and found to be equal. The hip was also taken through range of motion , and found to be stable. The hip was then copiously irrigated with antibiotic solution with pulsatile lavage. The hip was then irrigated with Irrisept solution. The soft tissues were then injected with ropivacaine solution. A second dose of 1 g of Tranexamic acid was given. The abductors were then repaired with #5 Ethibond suture with drill holes to the bone. The fascia was closed with #2 strata fix suture. The subcutaneous tissue was closed with 3-0 Vicryl. The subcuticular tissue was closed with 3-0 strata fix suture. The skin was then closed with Dermabond glue and a silver dressing.. The patient was then transferred to the recovery room in stable condition. The Asst.SURYA Oreilly was required due to the complexity of surgery, and the need for skilled assistant brand manager for positioning, draping, exposure, retraction, and closure of the wound.and closure of the wound.
[2018-09-11] MEDS: SODIUM CHLORIDE 0.9% 1,000 ML IV SCH (18:55)
[2018-09-11] MEDS: SERTRALINE 50 MG TAB PO SCH (21:25)
[2018-09-11] MEDS: ASPIRIN 325 MG TAB PO SCH (21:25)
[2018-09-11] MEDS: ceFAZolin IN SWFI 2 GM/20 ML SYRINGE IVP SCH (21:25)
[2018-09-11] MEDS: SENNOSIDES-DOCUSATE SODIUM 1 EACH TAB PO SCH (21:25)
[2018-09-11] MEDS: HYDROcodone/APAP 5-325MG 1 EACH TAB PO PRN (23:53)
[2018-09-12] MEDS: ceFAZolin IN SWFI 2 GM/20 ML SYRINGE IVP SCH (04:49)
[2018-09-12] MEDS: SODIUM CHLORIDE 0.9% 1,000 ML IV SCH ×3 (04:52→23:07)
[2018-09-12] MEDS: HYDROcodone/APAP 5-325MG 1 EACH TAB PO PRN (07:36)
[2018-09-12 08:38] LABS: Basophils % (A) 0 %; Eosinophils # (A) 0.1 k/uL (0-0.7); Eosinophils % (A) 1 %; HCT 42.1 % (34.0-46.0); HGB 13.7 gm/dL (11.4-16.0); Lymphocytes # (A) 1.8 k/uL (1.0-4.8); Lymphocytes % (A) 13 %; MCH 30.9 pg (25.0-35.0); MCHC 32.7 g/dL (31.0-37.0); MCV 94.6 fL (80.0-100.0); Mean Platelet Volume 8.1; Monocytes # (A) 0.7 k/uL (0-1.0); Monocytes % (A) 5 %; Neutrophils # (A) 11.6 k/uL (1.3-7.7); Neutrophils % (A) 81 %; Platelet Count 221 k/uL (150-450); RBC 4.45 m/uL (3.80-5.40); WBC 14.3 k/uL (3.8-10.6)
--- NOTE | 2018-09-12 09:08 | P.PN ---
Subjective Progress Note Date: 09/12/18 This is a 63-year-old female who is status post revision left total hip arthroplasty. Patient is seen and evaluated at bedside today with Dr. Lavon Elder. Patient states that the left hip is painful today, but she has been up and walking with physical therapy. Patient denies any fever/chills, numbness , weakness, tingling, abdominal pain, shortness of breath or chest pain. Objective - Vital Signs Vital signs: Vital Signs Temp 97.6 F 09/12/18 07:01 Pulse 50 L 09/12/18 07:01 Resp 16 09/12/18 07:01 BP 94/58 09/12/18 07:01 Pulse Ox 98 09/12/18 07:01 Intake & Output 09/11/18 09/12/18 09/12/18 18:59 06:59 18:59 Intake Total 2051 875 Output Total 500 Balance 1551 875 Weight 64.864 kg 70.7 kg Intake: IV 2050 Intake, IV Titration 875 Amount Sodium Chloride 0.9% 1, 875 000 ml @ 70 mls/hr IV . [id number] [facility] Rx#:[id number] Output: Estimated Blood Loss 500 Other: Voiding Method Incontinent Toilet # Voids 1 2 - Exam Vital signs are stable. Patient is in no acute distress and is alert and oriented 3. Calf is soft and nontender to palpation. Dressing is clean, dry, and intact. Patient has full foot and ankle motion without pain or difficulty. Neurovascular status and circulatory status are intact. 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 Status post revision left total hip arthroplasty. (1) Status post revision of total hip replacement Current Visit: Yes Status: Acute Code(s): Z96.649 - PRESENCE OF UNSPECIFIED ARTIFICIAL HIP JOINT SNOMED Code(s): 346092084 (2) Loose total hip arthroplasty Current Visit: Yes Status: Acute Code(s): T84.038A - MECHANICAL LOOSENING OF OTH INTERNAL PROSTHETIC JOINT, INIT; Z96.649 - PRESENCE OF UNSPECIFIED ARTIFICIAL HIP JOINT SNOMED Code(s): 909464025 Plan: Continue routine postop care and pain control. Continue antocoagulation with aspirin. Weightbearing as tolerated with a walker. Leave dressing in place for 10 days. Appreciate input from medicine. Preliminary cultures are negative. Possible discharge home tomorrow.
[2018-09-12] MEDS: MELOXICAM 7.5 MG TAB PO SCH (10:11)
[2018-09-12] MEDS: ASPIRIN 325 MG TAB PO SCH ×2 (10:11→19:55)
[2018-09-12] MEDS: Mirabegron [Myrbetriq] 25 MG PO SCH (10:12)
[2018-09-12] MEDS: ONDANSETRON 4 MG/2 ML VIAL IVP PRN (11:32)
[2018-09-12] MEDS ORDERED: HYDROcodone/APAP 7.5-325MG 1 EACH TAB PO PRN (12:13)
--- NOTE | 2018-09-12 14:56 | P.CONS ---
History of Present Illness - Reason for Consult Consult date: 09/11/18 Medical management Requesting physician: Lavon Elder - Chief Complaint Left total hip arthroplasty revision - History of Present Illness This is a 63-year-old female patient of Dr. Lara with past medical history of osteoarthritis, obstructive sleep apnea not on CPAP, osteoarthritis. Patient has been brought into the hospital under the care of Dr. Elder status post left hip arthroplasty after a failed initial hip replacement April 2018 currently it was noted that the left acetabular component has been loosening, it was negative for infection. Patient now undergoes revision of the left total hip arthroplasty performed 09/11/2018 patient is seen currently postop, has some postop nausea and vomiting, no aspiration events, no shortness of breath no chest pain or palpitations, postoperative pain is under control, no history off DVT or PE, however she mentioned that she had a clot in the foot by podiatry not requiring any anticoagulation. Vital signs are stable but lower with a systolic blood pressure of 90's maintain IV hydration patient is not on any diuretic or antihypertensive prior to coming in Review of Systems Constitutional: Reports as per HPI, Denies anorexia, Denies chills, Denies chronic headaches, Denies chronic pain, Denies daytime sleepiness, Denies fatigue, Denies fever, Denies lethargy, Denies malaise, Denies night sweats, Denies poor appetite, Denies sweats, Denies weakness, Denies weight gain, Denies weight loss Ears, nose, mouth and throat: Reports as per HPI, Denies ant. neck pain, Denies bleeding gums, Denies dental pain, Denies dysphagia, Denies epistaxis, Denies headache, Denies hoarseness, Denies mouth pain, Denies nasal congestion, Denies nasal discharge, Denies neck fullness/pressure, Denies neck lump, Denies nose pain, Denies odynophagia, Denies post-nasal drip, Denies sinus pain, Denies sinus pressure, Denies swelling in mouth, Denies swelling in throat, Denies sore throat, Denies vertigo, Denies voice changes Cardiovascular: Reports as per HPI, Denies chest pain, Denies claudication, Denies decreased exercise tolerance, Denies dyspnea on exertion, Denies edema, Denies high blood pressure, Denies irregular heart beat, Denies leg edema, Denies lightheadedness, Denies orthopnea, Denies palpitations, Denies paroxysmal nocturnal dyspnea, Denies phlebitis, Denies rapid heart beat, Denies shortness of breath, Denies syncope Respiratory: Reports as per HPI, Denies congestion, Denies cough, Denies cough with sputum, Denies dyspnea, Denies excessive sputum, Denies hemoptysis, Denies home oxygen, Denies pain, Denies pain on inspiration, Denies pleurisy, Denies respiratory infections, Denies sleep apnea, Denies snoring, Denies wheezing Gastrointestinal: Reports as per HPI, Denies abdominal pain, Denies belching, Denies bloating, Denies BRBPR, Denies change in bowel habits, Denies coffee ground emesis, Denies constipation, Denies diarrhea, Denies dyspepsia, Denies early satiety, Denies excessive gas, Denies heartburn, Denies hematemesis, Denies hematochezia, Denies indigestion, Denies jaundice, Denies lactose intolerance, Denies loss of appetite, Denies melena, Denies nausea, Denies vomiting Genitourinary: Reports as per HPI, Denies abnormal vaginal bleeding, Denies decreased libido, Denies difficulty conceiving, Denies difficulty voiding, Denies dysmenorrhea, Denies dyspareunia, Denies dysuria, Denies flank pain, Denies genital sores, Denies hematuria, Denies hot flashes, Denies incomplete emptying, Denies kidney stones, Denies menorrhagia, Denies mixed incontinence, Denies nocturia, Denies pelvic pain, Denies post void dribbling, Denies , Denies prolapse symptoms, Denies stress incontinence, Denies urge incontinence , Denies urgency, Denies urinary frequency, Denies vaginal discharge, Denies vaginal dryness, Denies vaginal itching, Denies vaginal odor Menstruation: Reports as per HPI Musculoskeletal: Reports as per HPI, Denies arm numbness/tingling, Denies atrophy, Denies fractures, Denies frequent falls, Denies gait dysfunction, Denies hot joints, Denies leg numbness/tingling, Denies limitation of motion, Denies loss of height, Denies low back pain, Denies morning stiffness, Denies muscle cramps, Denies muscle weakness, Denies myalgias, Denies neck pain, Denies neck stiffness, Denies prior amputations, Denies redness of joints, Denies shooting arm pain, Denies shooting leg pain Integumentary: Reports as per HPI, Denies acne, Denies boils, Denies brittle nails, Denies change in hair/nails, Denies color changes, Denies darkening of skin, Denies depigmentation, Denies dryness, Denies foot/leg ulcers, Denies growths, Denies hirsutism, Denies lesions, Denies onychomycosis, Denies pruritus , Denies rash, Denies sores, Denies striae, Denies unusual bruising, Denies wounds Neurological: Reports as per HPI, Denies aphasia, Denies ataxia, Denies balance difficulties, Denies burning pain, Denies change in mentation, Denies change in smell/taste, Denies change in speech, Denies confusion, Denies convulsions, Denies double vision, Denies gait dysfunction, Denies head injury, Denies headaches, Denies hearing difficulties, Denies lack of coordination, Denies loss of vision, Denies memory loss, Denies migraines, Denies motor disturbance, Denies numbness, Denies paralysis, Denies paresthesias, Denies seizures, Denies sensory deficit, Denies spasticity, Denies syncope, Denies tic, Denies tingling , Denies transient paralysis, Denies tremors, Denies vertigo, Denies weakness, Denies visual changes Psychiatric: Reports as per HPI Endocrine: Reports as per HPI Hematologic/Lymphatic: Reports as per HPI Allergic/Immunologic: Reports as per HPI, Denies allergic rhinitis, Denies anaphylaxis, Denies angioedema, Denies gluten intolerance, Denies persistent infections, Denies seasonal allergies, Denies urticaria, Denies wheezing Past Medical History Past Medical History: Musculoskeletal Disorder, Osteoarthritis (OA), Pneumonia, Sleep Apnea/CPAP/BIPAP, Thyroid Disorder Additional Past Medical History / Comment(s): Hx Blood clot bottom left foot. Does not use CPAP or BIPAP. Urinary leakage. DDD. Thyroid nodules, BIOPSY NL. IBS. HAVING PROBLEMS WITH PAIN IN TOTAL LT HIP. History of Any Multi-Drug Resistant Organisms: None Reported Past Surgical History: Bladder Surgery, Section, Cholecystectomy, Hernia Repair, Hysterectomy, Joint Replacement, Orthopedic Surgery, Tonsillectomy Additional Past Surgical History / Comment(s): Total Right hip arthroplasty, Left knee arthroscopy x 2, EGD, Bladder suspension. TOTAL LT HIP 05/08/18, total left hip revision 09-11-2018 Past Anesthesia/Blood Transfusion Reactions: No Reported Reaction Past Psychological History: Anxiety, Depression Additional Psychological History / Comment(s): Pt states medication for anxiety and depression work well. She lives with her significant other. She uses no assistive device. She borrowed a walker for post op. She drives. Smoking Status: Current every day smoker Past Alcohol Use History: None Reported Additional Past Alcohol Use History / Comment(s): Smokes 1 PPD,started smoking at age 20 Past Drug Use History: None Reported - Past Family History Mother Family Medical History: Cancer Additional Family Medical History / Comment(s): Pt does not recall type of cancer. Sister(s) Family Medical History: Cancer Father Family Medical History: No Reported History Additional Family Medical History / Comment(s): Father was healthy until the time of his at age 85 yrs. He did have history of diabetes and myocardial infarction. Patient is 2 brothers and 2 sisters with no major medical problems. Brother(s) Family Medical History: Cancer Additional Family Medical History / Comment(s): KIDNEY CA Medications and Allergies Home Medications Medication Instructions Recorded Confirmed Type Sertraline [Zoloft] 50 mg PO HS 05/01/18 09/11/18 History Mirabegron [Myrbetriq] 25 mg PO DAILY 09/05/18 09/11/18 History Allergies Allergy/AdvReac Type Severity Reaction Status Date / Time codeine AdvReac Nausea & Verified 09/11/18 16:27 Vomiting morphine AdvReac Nausea & Verified 09/11/18 16:27 Vomiting Physical Exam Vitals: Vital Signs Temp Pulse Pulse Resp BP Pulse Ox 09/11/18 17:12 61 16 98/59 99 09/11/18 17:00 68 16 97/55 99 09/11/18 16:48 65 16 94/53 97 09/11/18 16:33 66 16 99/57 100 09/11/18 16:18 62 16 105/58 100 09/11/18 16:03 96.8 F L 53 L 14 135/65 100 09/11/18 12:20 98.5 F 68 108/58 96 Intake and Output 0109/11/18 09/11/18 06:59 14:59 22:59 Intake Total 1801 250 Output Total 500 Balance 1301 250 Intake: IV 1801 250 Output: Estimated Blood Loss 500 Other: Weight 64.864 kg - Constitutional General appearance: average body habitus, no acute distress - EENT Eyes: anicteric sclerae, PERRLA, dentition normal, normal appearance ENT: NA/AT, normal oropharynx - Neck Neck: normal ROM - Respiratory Respiratory: bilateral: CTA, negative: diminished, dullness, rales, rhonchi - Cardiovascular Rhythm: regular Heart sounds: normal: S1, S2 Abnormal Heart Sounds: no systolic murmur, no diastolic murmur, no rub, no S3 Gallop, no S4 Gallop, no click, no other - Gastrointestinal General gastrointestinal: normal bowel sounds, soft - Integumentary Integumentary: normal, normal turgor - Neurologic Neurologic: CNII-XII intact - Musculoskeletal Musculoskeletal: gait normal, strength equal bilaterally Results CBC & Chem 7: 09/12/18 07:41 Labs: Laboratory Results Blood Type A Positive 09/03/18 06:55 Blood Type Recheck No 09/03/18 06:55 Antibody Screen NEGATIVE 09/03/18 06:55 Spec Expiration Date 09/13/18 6778 09/03/18 06:55 Assessment and Plan Plan: . Osteoarthritis status post left total hip arthroplasty, status post revision arthroplasty left hip performed 09/11/2018 secondary to loosening of acetabular component, no evidence off infection on intraoperative examination by orthopedics, Continue current pain management, PT, OT, activity per orthopedics. IV fluids for hydration as the patient's blood pressure is no lower side Continue incentive spirometry to reduce incidence of atelectasis and hospital-acquired pneumonia. 2. Obstructive sleep apnea not on CPAP. 3. History off Elevated liver function tests. We will follow liver function tests while in the hospital as the patient is to requiring pain meds as well 4. Hypotension status post 1 L of IV fluids. Maintain IV hydration 5. Tobacco use and dependence. Smoking cessation. 6. Depression, recurrent. Continue Zoloft. Postop nausea and vomiting patient has anti-emetics DVT prophylaxis using aspirin 325 mg twice a day
[2018-09-12] MEDS ORDERED: SODIUM CHLORIDE 0.9% 500 ML 500 ML IV ONE ×2 (14:59→20:30)
[2018-09-12] MEDS: MIDODRINE 5 MG TAB PO SCH (17:59)
[2018-09-12] MEDS ORDERED: ALBUMIN HUMAN 25% 50 ML in EMPTY BAG 1 BAG IVPB ONE (18:15)
[2018-09-12] MEDS: SERTRALINE 50 MG TAB PO SCH (19:55)
[2018-09-12] MEDS: SENNOSIDES-DOCUSATE SODIUM 1 EACH TAB PO SCH (19:55)
[2018-09-13] MEDS: HYDROcodone/APAP 7.5-325MG 1 EACH TAB PO PRN ×2 (04:01→19:12)
[2018-09-13] MEDS ORDERED: KETOROLAC 30 MG/ML 1 ML VIAL IVP STA (08:29)
[2018-09-13 08:30] LABS: ALT 57 U/L (9-52); AST 84 U/L (14-36); Albumin 3.3 g/dL (3.5-5.0); Alkaline Phosphatase 46 U/L (38-126); Anion Gap 4 mmol/L; Blood Urea Nitrogen 10 mg/dL (7-17); Calcium 8.7 mg/dL (8.4-10.2); Carbon Dioxide 22 mmol/L (22-30); Chloride 114 mmol/L (98-107); Glucose 88 mg/dL (74-99); Potassium 4.4 mmol/L (3.5-5.1); Sodium 140 mmol/L (137-145); Total Bilirubin 0.6 mg/dL (0.2-1.3); Total Protein 5.4 g/dL (6.3-8.2)
--- NOTE | 2018-09-13 08:32 | P.PN ---
Subjective Progress Note Date: 09/13/18 This is a 63-year-old female who is status post revision left total hip arthroplasty. This is postoperative day #2. Patient is seen and evaluated at bedside today. Patient states that the left hip is painful, but the increase in her [place] is helping. Patient states that she has been up and walking with physical therapy. Patient states that she does live alone and still needs help to the bathroom. Patient denies any fever/chills, numbness, weakness, tingling, abdominal pain, shortness of breath or chest pain. Objective - Vital Signs Vital signs: Vital Signs Temp 97.6 F 09/13/18 07:28 Pulse 69 09/13/18 07:28 Resp 18 09/13/18 07:28 BP 101/66 09/13/18 07:28 Pulse Ox 96 09/13/18 07:28 Intake & Output 09/12/18 09/13/18 09/13/18 18:59 06:59 18:59 Intake Total 1200 2190 Balance 1200 2190 Intake: Intake, IV Titration 1250 Amount Sodium Chloride 0.9% 1, 1250 000 ml @ 125 mls/hr IV . Q8H [facility] Rx#:[id number] Oral 1200 940 Other: Voiding Method Toilet Toilet # Voids 1 5 - Exam Vital signs are stable. Patient is in no acute distress and is alert and oriented 3. Calf is soft and nontender to palpation. Dressing is clean, dry, and intact. Patient has full foot and ankle motion without pain or difficulty. Neurovascular status and circulatory status are intact. 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 Status post revision left total hip arthroplasty. (1) Status post revision of total hip replacement Current Visit: Yes Status: Acute Code(s): Z96.649 - PRESENCE OF UNSPECIFIED ARTIFICIAL HIP JOINT SNOMED Code(s): 505102495 (2) Loose total hip arthroplasty Current Visit: Yes Status: Acute Code(s): T84.038A - MECHANICAL LOOSENING OF OTH INTERNAL PROSTHETIC JOINT, INIT; Z96.649 - PRESENCE OF UNSPECIFIED ARTIFICIAL HIP JOINT SNOMED Code(s): 474020793 Plan: Continue routine postop care and pain control. Toradol is added. Continue antocoagulation with aspirin. Weightbearing as tolerated with a walker. Leave dressing in place for 10 days. Appreciate input from medicine. Preliminary cultures are negative. Possible discharge home or to rehab depending on how the patient does with physical therapy and ADL's today.
[2018-09-13] MEDS: MIDODRINE 5 MG TAB PO SCH ×3 (09:47→17:23)
[2018-09-13] MEDS: ASPIRIN 325 MG TAB PO SCH ×2 (09:47→20:07)
[2018-09-13] MEDS: MELOXICAM 7.5 MG TAB PO SCH (09:48)
[2018-09-13] MEDS: Mirabegron [Myrbetriq] 25 MG PO SCH (09:51)
[2018-09-13] MEDS: KETOROLAC 30 MG/ML 1 ML VIAL IVP SCH ×3 (13:04→23:36)
[2018-09-13] MEDS: SODIUM CHLORIDE 0.9% 1,000 ML IV SCH (13:36)
--- NOTE | 2018-09-13 14:06 | CDI ---
Documentation Clarification Form Date: 09/13/2018 1:37:24 PM From: Barbara Mcfarland RN, CCDS Admit Date: 09/11/2018 11:57:00 AM Patient Name: Teresa Valverde Visit Number: [id number] Discharge Date: ATTENTION: The Clinical Documentation Specialists (CDI) and [facility] Coding Staff appreciate your assistance in clarifying documentation. Please respond to the clarification below the line at the bottom and electronically sign. The CDI & [facility] Coding staff will review the response and follow-up if needed. Please note: Queries are made part of the Legal Health Record. If you have any questions, please contact the author of this message via ITS. Dr. Mary Beth Landon Hypotension is documented in your consult on 09/01/18. History/Risk Factors: Obstructive sleep apnea not on CPAP Clinical Indicators: Present for revision arthroplasty left hip performed 09/11. Following procedure Patients B/P: (monitor Q10-15 min) 99/57 55 16, 94/53 65 16, 97/55 68 16, 98/59 61 16, 95/60 65 16 Labs: WBC 14.3, HGB 13.7, HCT 42.1 Treatment: IV Fluid Bolus IV Fluids Monitor Vital Signs In your professional opinion, can you please further specify the etiology of the hypotension if known? (Specify if expected or unexpected if known) Orthostatic Hypotension Postural Hypotension Drug Induced Hypotension Postoperative Hypotension (specify expected or unexpected ) Other Condition, please specify Unable to determine (Last Revision: May 2017) Postop hypotension MTDD
--- NOTE | 2018-09-13 14:11 | P.PN ---
Subjective Progress Note Date: 09/13/18 This is a 63-year-old female patient of Dr. Lara with past medical history of osteoarthritis, obstructive sleep apnea not on CPAP, osteoarthritis. Patient has been brought into the hospital under the care of Dr. Elder status post left hip arthroplasty after a failed initial hip replacement April 2018 currently it was noted that the left acetabular component has been loosening, it was negative for infection. Patient now undergoes revision of the left total hip arthroplasty performed 09/11/2018 patient is seen currently postop, has some postop nausea and vomiting, no aspiration events, no shortness of breath no chest pain or palpitations, postoperative pain is under control, no history off DVT or PE, however she mentioned that she had a clot in the foot by podiatry not requiring any anticoagulation. Vital signs are stable but lower with a systolic blood pressure of 90's maintain IV hydration patient is not on any diuretic or antihypertensive prior to coming in 09/13: Patient had episode of hypotension last night and was given 1 L of IV fluids and continued on IV fluids at 125 mL per hour and midodrine was started as well as albumin given. This morning, patient denies having any lightheadedness, dizziness. She states her pain is controlled. We will discontinue IV fluids and provide prescription for midodrine for home. Repeat AST is 84 and ALT 57. Patient is awaiting further evaluation for possible discharge today. Review of Systems Constitutional: Reports as per HPI, Denies anorexia, Denies chills, Denies chronic headaches, Denies chronic pain, Denies daytime sleepiness, Denies fatigue, Denies fever, Denies lethargy, Denies malaise, Denies night sweats, Denies poor appetite, Denies sweats, Denies weakness, Denies weight gain, Denies weight loss Ears, nose, mouth and throat: Reports as per HPI, Denies ant. neck pain, Denies bleeding gums, Denies dental pain, Denies dysphagia, Denies epistaxis, Denies headache, Denies hoarseness, Denies mouth pain, Denies nasal congestion, Denies nasal discharge, Denies neck fullness/pressure, Denies neck lump, Denies nose pain, Denies odynophagia, Denies post-nasal drip, Denies sinus pain, Denies sinus pressure, Denies swelling in mouth, Denies swelling in throat, Denies sore throat, Denies vertigo, Denies voice changes Cardiovascular: Reports as per HPI, Denies chest pain, Denies claudication, Denies decreased exercise tolerance, Denies dyspnea on exertion, Denies edema, Denies high blood pressure, Denies irregular heart beat, Denies leg edema, Denies lightheadedness, Denies orthopnea, Denies palpitations, Denies paroxysmal nocturnal dyspnea, Denies phlebitis, Denies rapid heart beat, Denies shortness of breath, Denies syncope Respiratory: Reports as per HPI, Denies congestion, Denies cough, Denies cough with sputum, Denies dyspnea, Denies excessive sputum, Denies hemoptysis, Denies home oxygen, Denies pain, Denies pain on inspiration, Denies pleurisy, Denies respiratory infections, Denies sleep apnea, Denies snoring, Denies wheezing Gastrointestinal: Reports as per HPI, Denies abdominal pain, Denies belching, Denies bloating, Denies BRBPR, Denies change in bowel habits, Denies coffee ground emesis, Denies constipation, Denies diarrhea, Denies dyspepsia, Denies early satiety, Denies excessive gas, Denies heartburn, Denies hematemesis, Denies hematochezia, Denies indigestion, Denies jaundice, Denies lactose intolerance, Denies loss of appetite, Denies melena, Denies nausea, Denies vomiting Genitourinary: Reports as per HPI, Denies abnormal vaginal bleeding, Denies decreased libido, Denies difficulty conceiving, Denies difficulty voiding, Denies dysmenorrhea, Denies dyspareunia, Denies dysuria, Denies flank pain, Denies genital sores, Denies hematuria, Denies hot flashes, Denies incomplete emptying, Denies kidney stones, Denies menorrhagia, Denies mixed incontinence, Denies nocturia, Denies pelvic pain, Denies post void dribbling, Denies , Denies prolapse symptoms, Denies stress incontinence, Denies urge incontinence , Denies urgency, Denies urinary frequency, Denies vaginal discharge, Denies vaginal dryness, Denies vaginal itching, Denies vaginal odor Menstruation: Reports as per HPI Musculoskeletal: Reports as per HPI, Denies arm numbness/tingling, Denies atrophy, Denies fractures, Denies frequent falls, Denies gait dysfunction, Denies hot joints, Denies leg numbness/tingling, Denies limitation of motion, Denies loss of height, Denies low back pain, Denies morning stiffness, Denies muscle cramps, Denies muscle weakness, Denies myalgias, Denies neck pain, Denies neck stiffness, Denies prior amputations, Denies redness of joints, Denies shooting arm pain, Denies shooting leg pain Integumentary: Reports as per HPI, Denies acne, Denies boils, Denies brittle nails, Denies change in hair/nails, Denies color changes, Denies darkening of skin, Denies depigmentation, Denies dryness, Denies foot/leg ulcers, Denies growths, Denies hirsutism, Denies lesions, Denies onychomycosis, Denies pruritus , Denies rash, Denies sores, Denies striae, Denies unusual bruising, Denies wounds Neurological: Reports as per HPI, Denies aphasia, Denies ataxia, Denies balance difficulties, Denies burning pain, Denies change in mentation, Denies change in smell/taste, Denies change in speech, Denies confusion, Denies convulsions, Denies double vision, Denies gait dysfunction, Denies head injury, Denies headaches, Denies hearing difficulties, Denies lack of coordination, Denies loss of vision, Denies memory loss, Denies migraines, Denies motor disturbance, Denies numbness, Denies paralysis, Denies paresthesias, Denies seizures, Denies sensory deficit, Denies spasticity, Denies syncope, Denies tic, Denies tingling , Denies transient paralysis, Denies tremors, Denies vertigo, Denies weakness, Denies visual changes Allergic/Immunologic: Reports as per HPI, Denies allergic rhinitis, Denies anaphylaxis, Denies angioedema, Denies gluten intolerance, Denies persistent infections, Denies seasonal allergies, Denies urticaria, Denies wheezing Objective - Vital Signs Vital signs: Vital Signs Temp 97.6 F 09/13/18 07:28 Pulse 59 L 09/13/18 11:38 Resp 18 09/13/18 07:28 BP 103/65 09/13/18 11:38 Pulse Ox 96 09/13/18 07:28 Intake & Output 09/12/18 09/13/18 09/13/18 18:59 06:59 18:59 Intake Total 1200 2190 Balance 1200 2190 Intake: Intake, IV Titration 1250 Amount Sodium Chloride 0.9% 1, 1250 000 ml @ 125 mls/hr IV . Q8H [facility] Rx#:[id number] Oral 1200 940 Other: Voiding Method Toilet Toilet # Voids 1 5 - Exam General appearance: average body habitus, no acute distress, patient resting in bed comfortably. - EENT Eyes: anicteric sclerae, PERRLA, dentition normal, normal appearance ENT: NA/AT, normal oropharynx - Neck Neck: normal ROM - Respiratory Respiratory: bilateral: CTA, negative: diminished, dullness, rales, rhonchi - Cardiovascular Rhythm: regular Heart sounds: normal: S1, S2 Abnormal Heart Sounds: no systolic murmur, no diastolic murmur, no rub, no S3 Gallop, no S4 Gallop, no click, no other - Gastrointestinal General gastrointestinal: normal bowel sounds, soft - Integumentary Integumentary: normal, normal turgor - Neurologic Neurologic: CNII-XII intact - Musculoskeletal Musculoskeletal: gait normal, strength equal bilaterally - Labs CBC & Chem 7: 09/12/18 07:41 09/13/18 07:07 Labs: Abnormal Lab Results - Last 24 Hours (Table) 09/13/18 Range/Units 07:07 Chloride 114 H (98-107) mmol/L AST 84 H (14-36) U/L ALT 57 H (9-52) U/L Total Protein 5.4 L (6.3-8.2) g/dL Albumin 3.3 L (3.5-5.0) g/dL Microbiology - Last 24 Hours (Table) 09/11/18 14:29 Gram Stain - Preliminary Hip - Left Wound Culture - Preliminary 09/11/18 14:29 Gram Stain - Preliminary Hip - Left Wound Culture - Preliminary Assessment and Plan Plan: 1. Osteoarthritis status post left total hip arthroplasty, status post revision arthroplasty left hip performed 09/11/2018 secondary to loosening of acetabular component, no evidence off infection on intraoperative examination by orthopedics, Continue current pain management, PT, OT, activity per orthopedics. IV fluids for hydration as the patient's blood pressure is no lower side Continue incentive spirometry to reduce incidence of atelectasis and hospital-acquired pneumonia. 2. Hypotension status post 1 L IV fluids, albumin infusion, IV fluids maintain at 125 mL per hour, midodrine started 10 mg 3 times daily. IV fluids will be discontinued. Midodrine prescription provided for the patient. 3. Obstructive sleep apnea not on CPAP. 4. History of elevated liver function tests. We will follow liver function tests while in the hospital as the patient is to requiring pain meds as well 5. Hypotension status post 1 L of IV fluids. Maintain IV hydration 6. Tobacco use and dependence. Smoking cessation. 7. Depression, recurrent. Continue Zoloft. 8. Postop nausea and vomiting patient has anti-emetics 9. DVT prophylaxis using aspirin 325 mg twice a day Discharge plan: To be determined home with homecare or subacute rehab. PT and OT are following. Impression and plan of care have been directed as dictated by the signing physician. Miranda Washburn nurse practitioner acting as scribe for signing physician.
[2018-09-13] MEDS: SERTRALINE 50 MG TAB PO SCH (20:07)
[2018-09-13] MEDS: SENNOSIDES-DOCUSATE SODIUM 1 EACH TAB PO SCH (20:07)
[2018-09-14] MEDS: ONDANSETRON 4 MG/2 ML VIAL IVP PRN (02:11)
[2018-09-14 03:50] VITALS: PULSE 60
[2018-09-14] MEDS: KETOROLAC 30 MG/ML 1 ML VIAL IVP SCH ×2 (05:21→08:37)
[2018-09-14 07:55] LABS: Basophils % (A) 0 %; Eosinophils # (A) 0.2 k/uL (0-0.7); Eosinophils % (A) 2 %; HCT 37.5 % (34.0-46.0); Lymphocytes # (A) 1.2 k/uL (1.0-4.8); Lymphocytes % (A) 14 %; MCH 30.5 pg (25.0-35.0); MCV 95.4 fL (80.0-100.0); Mean Platelet Volume 7.3; Monocytes # (A) 0.4 k/uL (0-1.0); Monocytes % (A) 4 %; Neutrophils % (A) 79 %; Platelet Count 193 k/uL (150-450); RBC 3.93 m/uL (3.80-5.40); RDW 13.1 % (11.5-15.5); WBC 8.8 k/uL (3.8-10.6)
--- NOTE | 2018-09-14 08:13 | P.DS ---
Providers Date of admission: 09/11/18 11:57 Expected date of discharge: 09/14/18 Attending physician: Lavon Elder Consults: 09/11/18 13:47 Consult Physician Routine Consulting Provider: Byron Lara Consult Reason/Comments: medical management Do you want consulting provider notified?: Yes 09/11/18 17:22 Consult Physician Routine Consulting Provider: Humberto Queen Reason/Comments: MEDICAL MANAGEMENT Do you want consulting provider notified?: Yes Primary care physician: Byron Lara - Discharge Diagnosis(es) (1) Status post revision of total hip replacement Current Visit: Yes Status: Acute (2) Loose total hip arthroplasty Current Visit: Yes Status: Acute Hospital Course: This is a 63-year-old female who had a left total hip arthroplasty performed on 05/08/2018. The patient presented for evaluation as an outpatient after developing increased pain in the left hip. X-rays showed possible loosening of the acetabular component of the left total hip arthroplasty. After discussion and consideration of surgical versus nonsurgical options, the patient elects to proceed with revision left total hip arthroplasty. The patient is seen preoperatively by Dr. Elder and medically cleared for surgery by their primary care physician. Patient is admitted to [facility] on 09/11/2018 for revision left total hip arthroplasty. The procedures performed without complication or sequelae. The patient is doing well postoperatively. Labs and vital signs are stable on day of discharge. On day of discharge patient's hip incision is healing well. There is minimal erythema. There is no drainage noted at this time. There is minimal soft tissue swelling to the hip and thigh. Patient has full foot and ankle motion without difficulty or pain. Neurovascular status to the left lower extremity is intact. Patient is discharged home in good condition. Please see med rec for accurate list of home medications. Plan - Discharge Summary Discharge Rx Participant: No New Discharge Prescriptions: New Aspirin 325 mg PO BID #60 tab HYDROcodone/APAP 7.5-325MG [[place] 7.5-325] 1 - 2 tab PO Q4-6H PRN #84 tab PRN Reason: Pain Sennosides [Senokot] 1 tab PO BID #60 tablet Midodrine [ProAmatine] 10 mg PO AC-TID #21 tab Ketorolac [Toradol] 10 mg PO Q6HR #12 tab Ondansetron Odt [Zofran Odt] 1 - 2 tab PO Q8HR PRN #12 tab PRN Reason: Nausea Continue Sertraline [Zoloft] 50 mg PO HS Mirabegron [Myrbetriq] 25 mg PO DAILY Discharge Medication List Sertraline [Zoloft] 50 mg PO HS 05/01/18 [History] Mirabegron [Myrbetriq] 25 mg PO DAILY 09/05/18 [History] Aspirin 325 mg PO BID #60 tab 09/13/18 [Rx] HYDROcodone/APAP 7.5-325MG [[place] 7.5-325] 1 - 2 tab PO Q4-6H PRN #84 tab [Rx] Midodrine [ProAmatine] 10 mg PO AC-TID #21 tab 09/13/18 [Rx] Sennosides [Senokot] 1 tab PO BID #60 tablet 09/13/18 [Rx] Ketorolac [Toradol] 10 mg PO Q6HR #12 tab 09/14/18 [Rx] Ondansetron Odt [Zofran Odt] 1 - 2 tab PO Q8HR PRN #12 tab 09/14/18 [Rx] Follow up Appointment(s)/Referral(s): Byron Lara MD [Primary Care Provider] - 09/19/18 1:30 pm aLvon Elder DO [Doctor of Osteopathic Medicine] - 09/27/18 1:15 pm Activity/Diet/Wound Care/Special Instructions: Weightbearing as tolerated with walker. Leave dressing intact. Dressing may be removed by home care nurse in 10 days. May shower with dressing on. Please follow-up with [facility] in 2 weeks and call with any questions or concerns, . Discharge Disposition: HOME WITH HOME HEALTH SERVICES
[2018-09-14 08:26] VITALS: BP 115/66; RESP 18; TEMP 98.3
[2018-09-14] MEDS: MELOXICAM 7.5 MG TAB PO SCH (08:37)
[2018-09-14] MEDS: ASPIRIN 325 MG TAB PO SCH (08:37)
[2018-09-14] MEDS: MIDODRINE 5 MG TAB PO SCH (08:37)
[2018-09-14] MEDS ORDERED: HYDROmorphone 2 MG TAB PO PRN ×2 (11:00)
== END 2018-09-14 10:45 | disposition home health service (06) | DRG 468 ==
LOC: 2ORMAIN 11:57 → 4SSUR 16:40
PROVIDERS: ADMIT Orthopaedic Surgery; ATTEND Orthopaedic Surgery
PROC: 0SPB0JZ Removal of Synthetic Substitute from Left Hip Joint, Open Approach (ICD-10-PCS; principal; 2018-09-11 14:00)
PROC: 0SRB06A Replacement of Left Hip Joint with Oxidized Zirconium on Polyethylene Synthetic Substitute, Uncemented, Open Approach (ICD-10-PCS; principal; 2018-09-11 14:00)
DX: T84.031A Mechanical loosening of internal left hip prosthetic joint, initial encounter (principal); Y83.8 Other surgical procedures as the cause of abnormal reaction of the patient, or of later complication, without mention of misadventure at the time of the procedure; Y79.2 Prosthetic and other implants, materials and accessory orthopedic devices associated with adverse incidents; E07.9 Disorder of thyroid, unspecified; F17.200 Nicotine dependence, unspecified, uncomplicated; F32.9 Major depressive disorder, single episode, unspecified; G47.33 Obstructive sleep apnea (adult) (pediatric); I95.89 Other hypotension; K58.9 Irritable bowel syndrome, unspecified; M19.90 Unspecified osteoarthritis, unspecified site; Z79.899 Other long term (current) drug therapy; Z80.51 Family history of malignant neoplasm of kidney; Z82.49 Family history of ischemic heart disease and other diseases of the circulatory system; Z83.3 Family history of diabetes mellitus; Z90.710 Acquired absence of both cervix and uterus; Z96.641 Presence of right artificial hip joint; Z90.49 Acquired absence of other specified parts of digestive tract; Z88.5 Allergy status to narcotic agent
CPT/HCPCS: 73501; 80053; 85025; 86850; 86891; 86900; 86901; 87070; 87075; 87205; 88305; 88331

== ENCOUNTER → 2019-06-10 | Outpatient (CLI) | payer OTHER ==
--- NOTE | 2019-06-10 06:58 | MR ---
EXAMINATION TYPE: MR lumbar spine wo con DATE OF EXAM: 06/10/2019 COMPARISON: MRI lumbar spine November 17, 2016 HISTORY: Low back pain, lumbar region radiculopathy, lumbosacral disc degeneration, spondylosis with out myelopathy, and spondylolisthesis TECHNIQUE: Multiplanar, multisequence imaging of the lumbar spine is performed without IV contrast. FINDINGS: Sagittal images of the lumbar spine show vertebral body heights and alignment to appear sat isfactory. Multilevel disc desiccation is seen. There is fairly advanced disc space narrowing L5-S1 l evel with heterogeneous echotexture endplate changes anteriorly. Mild multilevel anterior spurring. T he conus medullaris remains normal in position and signal. Axial images at the T12-L1 level shows broad disc bulge with central disc protrusion component and an nular tear effacing anterior thecal sac. Bilateral neural foramina are patent. No significant change from prior. Axial images at the L1-L2 level show mild broad disc bulge but the spinal canal preserved, the bilate ral neural foramina are patent. No significant change from prior. Axial images at L2-L3 level shows stable mild facet degenerative changes bilaterally. Axial images at L3-L4 level show mild/moderate facet degenerative changes bilaterally with slight eff acement right posterior lateral thecal sac. Mild broad disc bulge. Bilateral neural foramina are deleon nt. Progression of facet arthropathy noted from prior. Axial images at the L4-L5 level mild/moderate facet degenerative changes bilaterally. There is broad- based posterior disc protrusion without spinal canal is minimally effaced. There is mild bilateral an terior inferior neural foraminal narrowing. No significant change from prior. Axial images at the L5-S1 level shows moderate facet degenerative changes bilaterally. There is centr al disc protrusion without spinal canal preserved. Bilateral neural foramina are patent. No significa nt change from prior. No suspicious incidental retroperitoneal findings are seen. IMPRESSION: Multilevel degenerative changes in lumbar spine as detailed above with some progression i n facet arthropathy L3-L4 level noted otherwise no significant change from prior.
== END | disposition home or self-care (01) ==
LOC: RADMRIMAIN 06:04
PROVIDERS: ATTEND Orthopaedic Surgery Orthopaedic Surgery of the Spine
DX: M47.26 Other spondylosis with radiculopathy, lumbar region (principal); M46.96 Unspecified inflammatory spondylopathy, lumbar region; F17.200 Nicotine dependence, unspecified, uncomplicated
CPT/HCPCS: 72148

== ENCOUNTER 2019-09-16 09:43 | Emergency (ER) | payer OTHER ==
[2019-09-16 10:26] VITALS: BP 121/66; PULSE 69; RESP 18; TEMP 98
--- NOTE | 2019-09-16 11:30 | XR ---
EXAMINATION TYPE: XR wrist complete LT, XR forearm LT DATE OF EXAM: 09/16/2019 CLINICAL HISTORY: pain TECHNIQUE: Frontal, lateral and oblique images of the left wrist are obtained. Scaphoid views also s ubmitted. In addition 2 views of the left forearm are submitted. COMPARISON: None. FINDINGS: There is no acute fracture/dislocation evident. The joint spaces appear within normal amezcua its. The overlying soft tissue appears unremarkable. IMPRESSION: There is no acute fracture or dislocation seen. ICD 10 NO FRACTURE, INITIAL EVALUATION
[2019-09-16] MEDS ORDERED: KETOROLAC 30 MG/ML 1 ML VIAL IM STA (11:53)
--- NOTE | 2019-09-16 11:54 | ED ---
General Adult HPI - General Chief complaint: Fall Stated complaint: Fall/arm injury Time Seen by Provider: 09/16/19 10:29 Source: patient, RN notes reviewed Mode of arrival: ambulatory Limitations: no limitations - History of Present Illness Initial comments: 64-year-old female presents to the emergency determine for left arm pain. Patient states that she slipped on ice earlier this morning. States she fell on her left forearm. Patient has difficult time localizing pain stating it is somewhere within the left forearm. She denies hitting her head. She denies any injury. Denies pain in her hand. Denies pain in her shoulder or humerus. Denies pain with moving her elbow.Patient has no other complaints at this time including shortness of breath, chest pain, abdominal pain, nausea or vomiting, headache, or visual changes. - Related Data Home Medications Medication Instructions Recorded Confirmed Sertraline [Zoloft] 50 mg PO HS 05/01/18 09/11/18 Mirabegron [Myrbetriq] 25 mg PO DAILY 09/05/18 09/11/18 Previous Rx's Medication Instructions Recorded Aspirin 325 mg PO BID #60 tab 09/13/18 HYDROcodone/APAP 7.5-325MG [[place] 1 - 2 tab PO Q4-6H PRN #84 tab 09/13/18 7.5-325] Midodrine [ProAmatine] 10 mg PO AC-TID #21 tab 09/13/18 Sennosides [Senokot] 1 tab PO BID #60 tablet 09/13/18 Ketorolac [Toradol] 10 mg PO Q6HR #12 tab 09/14/18 Ondansetron Odt [Zofran Odt] 1 - 2 tab PO Q8HR PRN #12 tab 09/14/18 Allergies Allergy/AdvReac Type Severity Reaction Status Date / Time codeine AdvReac Nausea & Verified 09/16/19 10:25 Vomiting morphine AdvReac Nausea & Verified 09/16/19 10:25 Vomiting Review of Systems ROS Statement: Those systems with pertinent positive or pertinent negative responses have been documented in the HPI. ROS Other: All systems not noted in ROS Statement are negative. Past Medical History Past Medical History: Memory Impairment, Musculoskeletal Disorder, Osteoarthritis (OA), Pneumonia, Sleep Apnea/CPAP/BIPAP Additional Past Medical History / Comment(s): Hx Blood clot bottom left foot, does not use CPAP or BIPAP,urinary leakage, DDD, put on antibiotic by Dr East for jaw pain-doesn't think is an infected tooth-very small spot on x-ray, but follows up w/him , to have thyroid U/S for nodules History of Any Multi-Drug Resistant Organisms: None Reported Past Surgical History: Bladder Surgery, Section, Cholecystectomy, Hernia Repair, Hysterectomy, Joint Replacement, Orthopedic Surgery, Tonsillectomy Additional Past Surgical History / Comment(s): Total Right hip arthroplasty, Left knee arthroscopy x 2, EGD, Bladder suspension. TOTAL LT HIP 05/08/18, total left hip revision 09-11-2018 Past Anesthesia/Blood Transfusion Reactions: No Reported Reaction Past Psychological History: Anxiety, Depression Smoking Status: Current every day smoker Past Alcohol Use History: None Reported Past Drug Use History: None Reported - Past Family History Mother Family Medical History: Cancer Additional Family Medical History / Comment(s): Pt does not recall type of cancer. Sister(s) Family Medical History: Cancer Father Family Medical History: No Reported History Additional Family Medical History / Comment(s): Father was healthy until the time of his at age 85 yrs. He did have history of diabetes and myocardial infarction. Patient is 2 brothers and 2 sisters with no major medical problems. Brother(s) Family Medical History: Cancer Additional Family Medical History / Comment(s): KIDNEY CA General Exam Limitations: no limitations General appearance: alert, in no apparent distress Head exam: Present: atraumatic, normocephalic, normal inspection Eye exam: Present: normal appearance, PERRL, EOMI. Absent: scleral icterus, conjunctival injection, periorbital swelling ENT exam: Present: normal exam, mucous membranes moist Neck exam: Present: normal inspection, full ROM. Absent: tenderness, meningismus, lymphadenopathy Respiratory exam: Present: normal lung sounds bilaterally. Absent: respiratory distress, wheezes, rales, rhonchi, stridor Cardiovascular Exam: Present: regular rate, normal rhythm, normal heart sounds. Absent: systolic murmur, diastolic murmur, rubs, gallop, clicks Extremities exam: Present: full ROM (Patient is able to flex and extend left elbow as well as wrist however patient does have pain when moving the left wrist. She is able to abduction and flex left shoulder.), normal capillary refill (Capillary refill less than 2 seconds, radial pulse 2+.), other (Sensation intact left upper extremity.). Absent: normal inspection, tenderness (Patient does not have any specific tenderness of the left hand wrist or forearm. There is no scaphoid tenderness. No tenderness of the humerus or elbow), joint swelling (I do not see any sign of ecchymosis or edema. No lacerations or abrasions.) Course Vital Signs 09/16/19 10:22 Temperature 98.0 F Pulse Rate 69 Respiratory 18 Rate Blood Pressure 121/66 O2 Sat by Pulse 98 Oximetry Medical Decision Making - Medical Decision Making As discussed pain is nonlocalized. She does not have any specific point tenderness. There is no scaphoid tenderness. She does have some pain elicited with movement of the left wrist. Otherwise describes this pain as a shooting pain in her left forearm that is nonspecific. X-ray of the left forearm and wrist were completed and shows no acute fracture or dislocation. Patient was given Toradol. At this time I do not have significant concern for occult fracture given generalized nature of pain. I recommend she follows up with orthopedics. Recommend she return if she has any worsening symptoms. Disposition Clinical Impression: Left forearm pain Disposition: HOME SELF-CARE Condition: Good Instructions (If sedation given, give patient instructions): Arm Pain (ED) Additional Instructions: Please take Motrin and Tylenol for pain. Follow-up with orthopedics in one to 2 days. Return if you have any worsening symptoms. Is patient prescribed a controlled substance at d/c from ED?: No Referrals: Byron Lara MD [Primary Care Provider] - 1-2 days David Sage MD [Medical Doctor] - 1-2 days Time of Disposition: 11:53
== END 2019-09-16 12:15 | disposition home or self-care (01) ==
LOC: EC 09:43
DX: M79.632 Pain in left forearm (principal); G47.30 Sleep apnea, unspecified; F41.9 Anxiety disorder, unspecified; F32.9 Major depressive disorder, single episode, unspecified; F17.200 Nicotine dependence, unspecified, uncomplicated; Z79.899 Other long term (current) drug therapy; Z88.5 Allergy status to narcotic agent; Z99.89 Dependence on other enabling machines and devices; Z96.641 Presence of right artificial hip joint; W00.0XXA Fall on same level due to ice and snow, initial encounter
CPT/HCPCS: 73090; 73110; 99283; 96372; J1885

== ENCOUNTER 2019-12-18 14:09 | Emergency (ER) | payer OTHER ==
[2019-12-18 14:16] VITALS: RESP 18
[2019-12-18 14:32] VITALS: TEMP 97
[2019-12-18] MEDS ORDERED: DIAZEPAM 5 MG/ML 2 ML INJ IVP STA (14:39)
[2019-12-18] MEDS ORDERED: MECLIZINE 25 MG TAB PO STA (14:39)
--- NOTE | 2019-12-18 14:43 | ED ---
General Adult HPI - General Chief complaint: Neuro Symptoms/Deficit Stated complaint: STROKE Time Seen by Provider: 12/18/19 14:10 Source: patient, RN notes reviewed, old records reviewed Mode of arrival: wheelchair Limitations: no limitations - History of Present Illness Initial comments: This is a 64-year-old female brought to the emergency department by her son because she was dizzy. Patient states last night she went to bed at 9:00 and 10:30 she woke up her bathroom and she was walking she was very off balance and felt dizzy. Patient states when she moves her head the symptoms seem to worsen. Patient denies any nausea vomiting. Patient denies any palpitations chest pain difficulty breathing. Patient denies any headache patient denies any numbness or weakness. Patient states she's never had any symptoms as before. Patient denies any recent illness patient denies any recent fever chills or cough. Patient denies abdominal pain. Patient denies any fall. Patient states if she remains still the symptoms seem to be less. Patient denies any new ringing in ears or recent hearing deficit - Related Data Home Medications Medication Instructions Recorded Confirmed Sertraline [Zoloft] 50 mg PO HS 05/01/18 09/11/18 Mirabegron [Myrbetriq] 25 mg PO DAILY 09/05/18 09/11/18 Previous Rx's Medication Instructions Recorded Aspirin 325 mg PO BID #60 tab 09/13/18 HYDROcodone/APAP 7.5-325MG [[place] 1 - 2 tab PO Q4-6H PRN #84 tab 09/13/18 7.5-325] Midodrine [ProAmatine] 10 mg PO AC-TID #21 tab 09/13/18 Sennosides [Senokot] 1 tab PO BID #60 tablet 09/13/18 Ketorolac [Toradol] 10 mg PO Q6HR #12 tab 09/14/18 Ondansetron Odt [Zofran Odt] 1 - 2 tab PO Q8HR PRN #12 tab 09/14/18 Meclizine [Antivert] 25 mg PO TID #20 tab 12/18/19 Allergies Allergy/AdvReac Type Severity Reaction Status Date / Time codeine AdvReac Nausea & Verified 09/16/19 10:25 Vomiting morphine AdvReac Nausea & Verified 09/16/19 10:25 Vomiting Review of Systems ROS Statement: Those systems with pertinent positive or pertinent negative responses have been documented in the HPI. ROS Other: All systems not noted in ROS Statement are negative. Past Medical History Past Medical History: Memory Impairment, Musculoskeletal Disorder, Osteoarthritis (OA), Pneumonia, Sleep Apnea/CPAP/BIPAP Additional Past Medical History / Comment(s): Hx Blood clot bottom left foot, does not use CPAP or BIPAP,urinary leakage, DDD, put on antibiotic by Dr East for jaw pain-doesn't think is an infected tooth-very small spot on x-ray, but follows up w/him , to have thyroid U/S for nodules History of Any Multi-Drug Resistant Organisms: None Reported Past Surgical History: Bladder Surgery, Section, Cholecystectomy, Hernia Repair, Hysterectomy, Joint Replacement, Orthopedic Surgery, Tonsillectomy Additional Past Surgical History / Comment(s): Total Right hip arthroplasty, Left knee arthroscopy x 2, EGD, Bladder suspension. TOTAL LT HIP 05/08/18, total left hip revision 09-11-2018 Past Anesthesia/Blood Transfusion Reactions: No Reported Reaction Past Psychological History: Anxiety, Depression Smoking Status: Current every day smoker Past Alcohol Use History: None Reported Past Drug Use History: None Reported - Past Family History Mother Family Medical History: Cancer Additional Family Medical History / Comment(s): Pt does not recall type of cancer. Sister(s) Family Medical History: Cancer Father Family Medical History: No Reported History Additional Family Medical History / Comment(s): Father was healthy until the time of his at age 85 yrs. He did have history of diabetes and myocardial infarction. Patient is 2 brothers and 2 sisters with no major medical problems. Brother(s) Family Medical History: Cancer Additional Family Medical History / Comment(s): KIDNEY CA General Exam - General Exam Comments Initial Comments: GENERAL: Patient is well-developed and well-nourished. Patient is nontoxic and well- hydrated and is in mild distress. ENT: Neck is soft and supple. No significant lymphadenopathy is noted. Oropharynx is clear. Moist mucous membranes. Neck has full range of motion without eliciting any pain. EYES: The sclera were anicteric and conjunctiva were pink and moist. Extraocular movements were intact and pupils were equal round and reactive to light. Eyeli ds were unremarkable. PULMONARY: Unlabored respirations. Good breath sounds bilaterally. No audible rales rhonchi or wheezing was noted. CARDIOVASCULAR: There is a regular rate and rhythm without any murmurs gallops or rubs. ABDOMEN: Soft and nontender with normal bowel sounds. SKIN: Skin is clear with no lesions or rashes and otherwise unremarkable. NEUROLOGIC: Patient is alert and oriented x3. Cranial nerves II through XII are grossly intact. Motor and sensory are also intact. Normal speech, volume and content. Symmetrical smile. Finger to nose testing is normal bilaterally MUSCULOSKELETAL: Normal extremities with adequate strength and full range of motion. LYMPHATICS: No significant lymphadenopathy is noted PSYCHIATRIC: Normal psychiatric evaluation. Limitations: no limitations Course Vital Signs 12/18/19 12/18/19 12/18/19 14:10 14:30 15:01 Temperature 97.4 F L 97 F L Pulse Rate 67 64 68 Respiratory 18 18 18 Rate Blood Pressure 104/69 114/68 113/67 O2 Sat by Pulse 97 96 95 Oximetry 12/18/19 15:46 Temperature Pulse Rate 60 Respiratory 18 Rate Blood Pressure 113/73 O2 Sat by Pulse 97 Oximetry Medical Decision Making - Medical Decision Making EKG shows normal sinus rhythm at 60 bpm LA interval 162 QRS is 70 QT interval 390 QTC is 414. Patient's EKG shows no ST segment elevation or depression or T wave abnormalities are noted. The patient received Antivert and Valium in the emergency department was feeling considerably better. Chest x-ray showed no acute normalities. CT of the brain shows no acute abnormality. Patient be discharged home to follow-up with primary medical care doctor with specific instructions to return if there are any new or worsening symptoms. - Lab Data Result diagrams: 12/18/19 14:44 12/18/19 14:44 Lab Results 12/18/19 12/18/19 12/18/19 Range/Units 14:44 14:44 14:44 WBC 8.5 (3.8-10.6) k/uL RBC 5.26 (3.80-5.40) m/uL Hgb 16.4 H (11.4-16.0) gm/dL Hct 49.1 H (34.0-46.0) % MCV 93.3 (80.0-100.0) fL MCH 31.2 (25.0-35.0) pg MCHC 33.4 (31.0-37.0) g/dL RDW 12.7 (11.5-15.5) % Plt Count 254 (150-450) k/uL Neutrophils % 69 % Lymphocytes % 23 % Monocytes % 4 % Eosinophils % 2 % Basophils % 0 % Neutrophils # 5.9 (1.3-7.7) k/uL Lymphocytes # 2.0 (1.0-4.8) k/uL Monocytes # 0.4 (0-1.0) k/uL Eosinophils # 0.2 (0-0.7) k/uL Basophils # 0.0 (0-0.2) k/uL PT 9.5 (9.0-12.0) sec INR 0.9 (<1.2) APTT 21.7 L (22.0-30.0) sec Sodium 136 L (137-145) mmol/L Potassium 4.6 (3.5-5.1) mmol/L Chloride 109 H (98-107) mmol/L Carbon Dioxide 21 L (22-30) mmol/L Anion Gap 6 mmol/L BUN 19 H (7-17) mg/dL Creatinine 0.62 (0.52-1.04) mg/dL Est GFR (CKD-EPI)AfAm >90 (>60 ml/min/1.73 sqM) Est GFR (CKD-EPI)NonAf >90 (>60 ml/min/1.73 sqM) Glucose 114 H (74-99) mg/dL Calcium 10.0 (8.4-10.2) mg/dL Magnesium 2.2 (1.6-2.3) mg/dL Total Bilirubin 0.5 (0.2-1.3) mg/dL AST 32 (14-36) U/L ALT 23 (4-34) U/L Alkaline Phosphatase 58 (38-126) U/L Troponin I (0.000-0.034) ng/mL Total Protein 7.2 (6.3-8.2) g/dL Albumin 4.4 (3.5-5.0) g/dL 12/18/19 Range/Units 14:44 WBC (3.8-10.6) k/uL RBC (3.80-5.40) m/uL Hgb (11.4-16.0) gm/dL Hct (34.0-46.0) % MCV (80.0-100.0) fL MCH (25.0-35.0) pg MCHC (31.0-37.0) g/dL RDW (11.5-15.5) % Plt Count (150-450) k/uL Neutrophils % % Lymphocytes % % Monocytes % % Eosinophils % % Basophils % % Neutrophils # (1.3-7.7) k/uL Lymphocytes # (1.0-4.8) k/uL Monocytes # (0-1.0) k/uL Eosinophils # (0-0.7) k/uL Basophils # (0-0.2) k/uL PT (9.0-12.0) sec INR (<1.2) APTT (22.0-30.0) sec Sodium (137-145) mmol/L Potassium (3.5-5.1) mmol/L Chloride (98-107) mmol/L Carbon Dioxide (22-30) mmol/L Anion Gap mmol/L BUN (7-17) mg/dL Creatinine (0.52-1.04) mg/dL Est GFR (CKD-EPI)AfAm (>60 ml/min/1.73 sqM) Est GFR (CKD-EPI)NonAf (>60 ml/min/1.73 sqM) Glucose (74-99) mg/dL Calcium (8.4-10.2) mg/dL Magnesium (1.6-2.3) mg/dL Total Bilirubin (0.2-1.3) mg/dL AST (14-36) U/L ALT (4-34) U/L Alkaline Phosphatase (38-126) U/L Troponin I <0.012 (0.000-0.034) ng/mL Total Protein (6.3-8.2) g/dL Albumin (3.5-5.0) g/dL Disposition Clinical Impression: Vertigo Disposition: HOME SELF-CARE Condition: Good Instructions (If sedation given, give patient instructions): Vertigo (ED) Prescriptions: Meclizine [Antivert] 25 mg PO TID #20 tab Is patient prescribed a controlled substance at d/c from ED?: No Referrals: Byron Lara MD [Primary Care Provider] - 1-2 days Time of Disposition: 16:14
[2019-12-18 14:53] LABS: Basophils % (A) 0 %; Eosinophils # (A) 0.2 k/uL (0-0.7); Eosinophils % (A) 2 %; HCT 49.1 % (34.0-46.0); HGB 16.4 gm/dL (11.4-16.0); Lymphocytes % (A) 23 %; MCH 31.2 pg (25.0-35.0); MCHC 33.4 g/dL (31.0-37.0); MCV 93.3 fL (80.0-100.0); Monocytes # (A) 0.4 k/uL (0-1.0); Monocytes % (A) 4 %; Neutrophils # (A) 5.9 k/uL (1.3-7.7); Neutrophils % (A) 69 %; Platelet Count 254 k/uL (150-450); RBC 5.26 m/uL (3.80-5.40); RDW 12.7 % (11.5-15.5); WBC 8.5 k/uL (3.8-10.6)
[2019-12-18 15:01] LABS: ALT 23 U/L (4-34); AST 32 U/L (14-36); African American GFR (CKD) >90 (>60 ml/min/1.73 sqM); Albumin 4.4 g/dL (3.5-5.0); Alkaline Phosphatase 58 U/L (38-126); Anion Gap 6 mmol/L; Blood Urea Nitrogen 19 mg/dL (7-17); Carbon Dioxide 21 mmol/L (22-30); Chloride 109 mmol/L (98-107); Glucose 114 mg/dL (74-99); Magnesium 2.2 mg/dL (1.6-2.3); Non-African American GFR(CKD) >90 (>60 ml/min/1.73 sqM); Potassium 4.6 mmol/L (3.5-5.1); Sodium 136 mmol/L (137-145); Total Bilirubin 0.5 mg/dL (0.2-1.3); Total Protein 7.2 g/dL (6.3-8.2)
[2019-12-18 15:09] LABS: INR 0.9 (<1.2); Prothrombin Time 9.5 sec (9.0-12.0)
[2019-12-18 15:14] LABS: Partial Thromboplastin Time 21.7 sec (22.0-30.0)
--- NOTE | 2019-12-18 15:37 | CT ---
EXAMINATION TYPE: CT brain wo con DATE OF EXAM: 12/18/2019 HISTORY: Dizziness last night. Ataxia. CT DLP: 1149.4 mGycm. Automated Exposure Control for Dose Reduction was Utilized. TECHNIQUE: CT scan of the head is performed without contrast. COMPARISON: CT brain March 31, 2017. FINDINGS: There is no acute intracranial hemorrhage or midline shift identified. There is diffuse v entricular and sulcal prominence consistent with mild diffuse age-related cerebral atrophy. Slight a symmetry to the ventricles redemonstrated There is low-attenuation in the periventricular white matte r consistent with chronic small vessel ischemic change. Slightly low lying cerebellar tonsils without greater than 5 mm inferior descent redemonstrated. No suspicious new opacification mastoid air cells . The globes are intact and the visualized sinuses are clear. IMPRESSION: No acute intracranial hemorrhage or midline shift. There is mild diffuse age-related ce rebral atrophy and chronic small vessel ischemic change redemonstrated. No significant change from p rior CT.
--- NOTE | 2019-12-18 15:46 | XR ---
EXAMINATION TYPE: XR chest 2V DATE OF EXAM: 12/18/2019 COMPARISON: Chest x-ray January 04, 2017. HISTORY: Dizziness and difficulty speaking. TECHNIQUE: Frontal and lateral views of the chest are obtained. FINDINGS: There is no focal air space opacity, pleural effusion, or pneumothorax seen. The cardiac silhouette size is within normal limits. The osseous structures are intact. Overlying EKG leads on current study. IMPRESSION: No acute cardiopulmonary process. No significant change from prior.
[2019-12-18 16:41] VITALS: BP 118/63; PULSE 58
== END 2019-12-18 16:40 | disposition home or self-care (01) ==
LOC: EC 14:09
DX: R42 Dizziness and giddiness (principal); G47.30 Sleep apnea, unspecified; F41.9 Anxiety disorder, unspecified; F32.9 Major depressive disorder, single episode, unspecified; F17.200 Nicotine dependence, unspecified, uncomplicated; M19.90 Unspecified osteoarthritis, unspecified site; Z96.641 Presence of right artificial hip joint; Z79.899 Other long term (current) drug therapy; Z88.5 Allergy status to narcotic agent
CPT/HCPCS: 99285; 96374; 36415; 93005; 80053; 83735; 84484; 85025; 85610; 85730; 71046; 70450; J3360

== ENCOUNTER → 2021-05-28 | Outpatient (CLI) | payer OTHER ==
--- NOTE | 2021-05-29 04:44 | MR ---
EXAMINATION TYPE: MR cervical spine wo con DATE OF EXAM: 05/28/2021 COMPARISON: None HISTORY: Neck pain down right arm into fingers for 7 months. Body planar multiecho imaging of the cervical spine without contrast. Cervical vertebra have normal alignment. There is some degenerative disc space narrowing from C5 to C 7. There is small posterior disc herniations from C4 to C7. There is developmentally adequate spinal canal and no significant spinal stenosis. Spinal canal measures 8.5 mm at C6-7 which is the narrowest point. The cervical spinal cord has normal signal pattern. There is no edema. Brainstem is intact. T here is no cervical paraspinal mass. There is no compression fracture. IMPRESSION: Multilevel spondylotic changes. No spinal stenosis. Small posterior disc herniations in the lower cer vical spine. No significant neural foraminal impingement.
== END | disposition home or self-care (01) ==
LOC: RADMRIMAIN 20:46
PROVIDERS: ATTEND Orthopaedic Surgery
DX: M47.812 Spondylosis without myelopathy or radiculopathy, cervical region (principal); M50.223 Other cervical disc displacement at C6-C7 level
CPT/HCPCS: 72141

== ENCOUNTER 2021-07-27 07:15 | Day surgery (SDC) | payer OTHER ==
[2021-07-20 15:36] VITALS: BMI 26.7
[~2021-07-27 07:15] MED LIST changes: -ACETAMINOPHEN TAB 500 MG TAB PO ONE; -DEXAMETHASONE SOD PHOSPHATE 10 MG/ML 1 ML VIAL IV ONE; -LIDOCAINE 1% 20 ML VIAL (10MG/ML) FOR IV START INTRADERMA PRN; -MELOXICAM 7.5 MG TAB PO ONE; -MIDAZOLAM (PF) 2 MG/2 ML VIAL IV PRN; -ONDANSETRON 4 MG/2 ML VIAL IVP ONE; -ROPIVACAINE 246.25 MG, EPINEPHrine 0.5 MG, KETOROLAC 30 MG, cloNIDine HCL/PF 80 MCG, WA... MISCELLANE ONE; -SCOPOLAMINE 1.5MG/72HR PATCH TRANSDERM ONE; -TRANEXAMIC ACID 1,000 MG in SODIUM CHLORIDE 0.9% 50 ML IVPB ONE; -ceFAZolin IN SWFI 2 GM/20 ML SYRINGE IVP ONE
[2021-07-27 07:47] VITALS: TEMP 98.3
[2021-07-27] MEDS ORDERED: LIDOCAINE 1% (10MG/ML) FOR IV START INTRADERMA ONE (08:02)
[2021-07-27] MEDS ORDERED: DEXAMETHASONE SOD PHOSPHATE 10 MG/ML 1 ML VIAL ONE (08:15)
[2021-07-27] MEDS ORDERED: fentaNYL (PF) 50 MCG/ML 2 ML AMP ONE (08:15)
[2021-07-27] MEDS ORDERED: MIDAZOLAM 2 MG/2 ML VIAL ONE (08:15)
[2021-07-27] MEDS ORDERED: IOPAMIDOL M200 10 ML VIAL ONE (08:15)
--- NOTE | 2021-07-27 08:28 | P.PCN ---
Date of Procedure: 07/27/21 Procedure(s) Performed: . PROCEDURE 1. Cervical epidural steroid injection under fluoroscopic guidance, C5-6 (fluoroscopy images available in the radiology department ) 2. Cervical epidurogram. PREOPERATIVE DIAGNOSIS: 1- Cervical Herniated Disc Diseases 2- Cervical radiculopathy., 3-cervical spondylosis with cervical Facet arthropathy without myelopathy POSTOPERATIVE DIAGNOSIS: : 1- Cervical Herniated Disc Diseases , 2- Cervical radiculopathy. 3-,cervical spondylosis with cervical Facet arthropathy without myelopathy ANESTHESIA: Local anesthesia with lidocaine 1 % , and moderate sedation, with Versed 2 mg and Fentanyl 100 mcg. EBL 0 PROCEDURE INDICATION: The patient with neck pain and radiculitis unresponsive to conservative treatment consents for procedure. PROCEDURE DESCRIPTION / TECHNIQUE: The patient was seen and identified in the preoperative area. Risks, benefits, complications, including but not limited to infections ,bleeding , allergic reactions to the medications ,and not complete pain releife, and alternatives were discussed with the patient, the patient a greed to proceed with the procedure and signed the consent. Patient was taken to the OR and time out was completed. The patient was placed in the prone position on the procedure table. A pillow was placed under the patients chest to increase the cervical interlaminar space. The cervical area was prepped and draped in the usual sterile fashion. Vital signs were closely monitored during the procedure. Conscious sedation was used during the procedure to decrease patients anxiety. Using anterior-posterior fluoroscopy, the C5-6 interlaminar space was identified and the skin over this site was marked and then infiltrated with 1% lidocaine subcutaneously. Subsequently, a 20-gauge 3-1/2-inch Tuohy epidural needle was inserted and advanced toward the epidural space by means of the ``hanging-drop technique and guided by AP and lateral fluoroscopy. The correct needle position in the epidural space was verified with the injection of 2 mL of the water soluble contrast dye Isovue-200 and observing an excellent epidurogram with the epidural spread of the dye, after negative aspiration for blood and CSF and in the absence of paresthesias. then, mixture containing 20 mg Dexamethasone and 2 ml of preservative-free normal saline injected and a washout of epidurogram was seen. Needle was withdrawn intact, skin was cleansed, and bandages were applied. Complications= none. Disposition= patient was placed in supine position and transferred to the recovery room area in stable condition and there was no evidence of upper or lower extremity motor or sensory deficit after the procedure patient was discharged from recovery room after discharge criteria met and home discharge instructions was given by the staff and patient will follow with the pain clinic in 2-4 weeks
[2021-07-27] MEDS ORDERED: IV FLUID CONTINUATION 1,000 ML IV ONE (08:33)
[2021-07-27 08:34] VITALS: PULSE 60
--- NOTE | 2021-07-27 08:41 | FL ---
EXAMINATION TYPE: FL guided pain mgmt statistic DATE OF EXAM: 07/27/2021 HISTORY: Fluoroscopy time 2 seconds of fluoroscopy provided. IMPRESSION: 1. Fluoroscopy time.
[2021-07-27 09:10] VITALS: BP 98/52; RESP 16
== END 2021-07-27 09:24 | disposition home or self-care (01) ==
LOC: ORPAIN 07:15
PROVIDERS: ATTEND Specialist
DX: M50.20 Other cervical disc displacement, unspecified cervical region (principal); M54.12 Radiculopathy, cervical region; M47.812 Spondylosis without myelopathy or radiculopathy, cervical region
CPT/HCPCS: 62321; J2250; J1100; J3010; Q9966; 99152

== ENCOUNTER → 2021-08-19 | Outpatient (CLI) | payer OTHER ==
--- NOTE | 2021-08-19 10:22 | P.PN ---
Subjective Progress Note Date: 08/19/21 This is follow-up visit for this 66 years old female with a chronic history of severe neck pain with radiation to the right upper extremity associated with numbness and tingling sensation, patient diagnosed with cervical radiculopathy, cervical herniated disc disease, and cervical spondylosis with cervical facet arthropathy, recently we did cervical epidural steroid injection at C5 6 levels, patient reported that she had good pain relief for short-term, the patient done physical therapy and she had no benefit from it, and she continued to use chiropractics and a home exercise Objective - Vital Signs Vital signs: Intake & Output 08/18/21 08/19/21 08/19/21 18:59 06:59 18:59 Weight 77.564 kg - Exam Physical Examinations : -Constitutiona : Cooperative , not in acute distress . -HEENT : nech : supple , no Lymphadenopathy , normal thyroid size . : eyes : no ptosis , no icterus, no photophobia . - neurologic : Cranial nerve II to XII intact , no focal neurological deffecit . -psychatric : alert , oriented X 3 , appropriate affect , intact judgment and insight . -Lymphatic : no Lymphadenopathy . - musculoskeltal : Cervical Spine motor stregnth in the deltoid and biceps, normal right side , normal Left side motor stregnth biceps and the wrist extensors normal right side ,normal left side . motor stregnth in the triceps muscle . normal Right side , normal Left side deep tendon reflexes normal at the biceps , normal at Brachioradialis , normal at triceps. cervical facet loading test: Positive Bilaterally Spurling test= positive Right , positive left. Neck distraction test= positive Right . Chaka sign= positive right. Lumber spine moter stegnth lower extremities ,thigh and legs 5/5 Right side , 5/5 Left side MRI of the cervical spine cervical herniated disc disease C4 to C7 Assessment and Plan Plan: Assessment and plan=1-cervical radiculopathy. 2-cervical herniated disc disease. 3-cervical spondylosis with cervical facet arthropathy. she could benefit from repeat cervical epidural steroid injection at C5-6 (Right paramedial approach ) Time with Patient: Less than 30
[2021-08-19 10:23] VITALS: BP 129/74; PULSE 74; RESP 16; TEMP 97.8
== END ==
LOC: PNWHC3 09:42
PROVIDERS: ATTEND Specialist
DX: M50.10 Cervical disc disorder with radiculopathy, unspecified cervical region (principal); M47.22 Other spondylosis with radiculopathy, cervical region; F17.200 Nicotine dependence, unspecified, uncomplicated; Z88.5 Allergy status to narcotic agent; Z88.6 Allergy status to analgesic agent
CPT/HCPCS: 99211

== ENCOUNTER 2021-10-07 06:49 | Day surgery (SDC) | payer OTHER ==
[2021-10-05 15:17] VITALS: BMI 26.7
[2021-10-07 07:05] VITALS: TEMP 98.3
[2021-10-07] MEDS: LACTATED RINGERS 1,000 ML IV SCH ×2 (07:10→07:34)
[2021-10-07] MEDS ORDERED: fentaNYL (PF) 50 MCG/ML 2 ML AMP ONE (07:34)
[2021-10-07] MEDS ORDERED: IOPAMIDOL M200 10 ML VIAL ONE (07:34)
[2021-10-07] MEDS ORDERED: MIDAZOLAM 2 MG/2 ML VIAL ONE (07:34)
[2021-10-07] MEDS ORDERED: DEXAMETHASONE SOD PHOSPHATE 10 MG/ML 1 ML VIAL ONE (07:34)
--- NOTE | 2021-10-07 07:36 | P.PCN ---
Date of Procedure: 10/07/21 Description of Procedure: PROCEDURE 1. Cervical epidural steroid injection under fluoroscopic guidance, C6-C7 2. Cervical epidurogram. PREOPERATIVE DIAGNOSIS: Cervical radiculopathy POSTOPERATIVE DIAGNOSIS: Cervical radiculopathy Imaging: Fluoroscopy was used, images where saved to the medical record ANESTHESIA: Local anesthesia with 1% lidocaine and 2 mg of Versed and 100 g of fentanyl PROCEDURE DESCRIPTION / TECHNIQUE: The patient was seen and identified in the preoperative area. Risks, benefits, and alternatives were discused with the patient and the patient has consented to the procedure. Risks of the procedure include potential for bleeding, infection, nerve damage, and incomplete pain relief were discussed with the patient. All questions were answered for the patient Patient was taken to the OR and time out was completed. The patient was placed in the prone position on the procedure table. A pillow was placed under the patients chest to increase the cervical interlaminar space. The cervical area was prepped and draped in the usual sterile fashion. Vital signs were closely monitored during the procedure. Using anterior-posterior fluoroscopy, the C6-C7 interlaminar space was identified and the skin over this site was marked and then infiltrated with 1% lidocaine subcutaneously. Subsequently, a 20-gauge 3-1/2-inch Tuohy epidural needle was inserted and advanced toward the epidural space by means of the [id number] technique and guided by AP and lateral fluoroscopy. The correct needle position in the epidural space was verified with the injection of 1 mL of the water soluble contrast dye [id number] and observing an excellent epidurogram with the epidural spread of the dye, after negative aspiration for blood and CSF and in the absence of paresthesias. Again after negative aspiration, a mixture containing 10 mg Dexamethasone and 2 ml of preservative- free normal saline injected and a washout of epidurogram was seen. Needle was withdrawn intact, skin was cleansed, and bandages were applied. Complications: none. Disposition: patient was placed in supine position and transferred to the re covery room area in stable condition and there was no evidence of upper or lower extremity motor or sensory deficit after the procedure patient was discharged from recovery room after discharge criteria met and home discharge instructions was given by the staff and patient will follow with the pain as directed.
[2021-10-07] MEDS ORDERED: IV FLUID CONTINUATION 1,000 ML IV ONE (07:51)
[2021-10-07 07:54] VITALS: RESP 16
[2021-10-07 08:03] VITALS: BP 111/72; PULSE 64
--- NOTE | 2021-10-07 08:45 | FL ---
Fluoroscopy HISTORY: Pain 4 seconds fluoroscopy time supplied to the referring clinician. 2 intraoperative C-arm images docume nt the procedure. See dictated report from anesthesia.
== END 2021-10-07 08:26 | disposition home or self-care (01) ==
LOC: ORPAIN 06:49
PROVIDERS: ATTEND Hospitalist
DX: M54.12 Radiculopathy, cervical region (principal)
CPT/HCPCS: 62321; J2250; J1100; J3010; Q9966

== ENCOUNTER → 2021-10-20 | Outpatient (CLI) | payer OTHER ==
[2021-10-20 10:07] VITALS: BP 109/57; PULSE 68; RESP 18; TEMP 98.6
--- NOTE | 2021-10-20 10:18 | P.PN ---
Subjective Progress Note Date: 10/20/21 Principal diagnosis: A 66 yr old female with a history of severe and chronic low back pain secondary to cervical degenerative disc diseases and spondylosis with facet arthropathy presents today for evaluation status post right paramedial FAUZIA C5- C6. Patient states she experienced 0% pain relief with the procedure. Pain level is currently at 3 out of 10 in intensity, dull, achy in the lower aspect of the cervical spine with radiation of pain to the right superior and middle aspect of the trapezius muscle. Pain is provoked by extension of the neck. Pain is alleviated minimally with injections, heat, physical therapy in March,, daily home stretching regimen, massage therapy. Patient admits to sufficient pain relief with manual traction of the cervical spine though that only lasts for a couple of hours. Patient shows interest in obtaining a cervical traction device for home use but due to her limited fixed income, she feels she is unable to obtain one at this time. Discussed manual traction techniques with patient. Interventional pain procedures completed include right paramedian FAUZIA C5-C6 Patient is currently on Motrin OTC Patient denies any side effects of the medication(s), denies excessive drowsiness or sleepiness, denies suicidal ideation and reports that the current pain medication is helping to control the pain and improve activities of daily living. Patient denies any motor or sensory deficits. Patient denies any fever or night sweats, denies any change in the bowel movements or urination. Physical Examination: -Constitutional: Cooperative. Not in acute distress . -HEENT: Neck is supple. No lymphadenopathy. No thyromegaly. Normal thyroid size. Eyes: No ptosis , no icterus, no photophobia. ENT: No auditory deficits. Normal oropharynx. No Thrush. - Respiratory: Chest clear to auscultations bilaterally. No wheezing. No rhonchi. - Cardiovascular: Regular rate and rhythm. S1 / S2 , no S3 , no S4. - Gastrointestinal: Abdomen soft no tenderness. Bowel sounds positive in all four quadrants. No organomegaly. - Genitourinary: Deferred. - Neurologic: Cranial nerve II to XII intact. No focal neurological deficits. - Psychatric: Alert & oriented x 3. Matching mood & appropriate affect. Judgment and insight intact. - Lymphatic: No Lymphadenopathy. - Musculoskeletal: Cervical spine: Muscle bulk/ tone/ strength in the bilateral upper extremities normal Mild vertebral body tenderness over the C6 Facet loading test cervical area positive. Lumbar spine: Motor bulk/ tone/ strength lower extremities , thigh and legs : 5/5 Deep tendon reflexes : Normal Knee Jerk. Normal Ankle Jerk . Vertebral body tenderness to palpation over Lumbar Facet Loading Test positive Straight Leg Raise: positive at 30 degrees right side/ left side Gaenslen's Test positive Sacral spine : Severe tenderness over the Sacroiliac joint: right side / left side Range of motion: Flexion of the lumbar spine <60 degrees Range of motion: Extension of the lumbar spine <20 degrees Gaenslen's Test positive Freddy test: positive right side / left side Assessment and plan: Chronic low back pain secondary to cervical degenerative disc disease , spondylosis with facet arthropathy without myelopathy Recommendation of cervical traction device to use on an as-needed basis Patient is disc interested in medication treatment at this time Patient states she'll return to Dr. Jimenez to explore other treatment options Patient may return for office on an as-needed basis All patient questions answered MAPS reviewed and it was appropriate. I have spent 31 minutes on patient care today. Dr Goodwin was available by phone for the evaluation of this patient. The time was used to review the medical records including relevant urine studies and Prescription history (MAPs), review of the available imaging, evaluation and examination of the patient, coordination of care with the medical staff and if applicable referring physicians, as well as creation of the medical record Objective - Vital Signs Vital signs: Vital Signs Temp 98.6 F 10/20/21 10:03 Pulse 68 10/20/21 10:03 Resp 18 10/20/21 10:03 BP 109/57 10/20/21 10:03 Pulse Ox 96 10/20/21 10:03 PQRS Measure Charge Sheet Mode of Arrival: Ambulatory - Pain Location Neck Non-Pharmacological Interventions: Home Exercise, Inactivity, Massage, Physical Therapy, Position/Reposition, Stretching Pharmacological Interventions: Epidural PQRS Narrative: Smoking Status Current every day smoker Blood Pressure 109/57 Pain Intensity [Neck] 4 Scale Used Numeric (1 - 10) Hx Alcohol Use (MH) No Home Medications: Ambulatory Orders Sertraline [Zoloft] 100 mg PO HS 05/01/18 Albuterol Sulfate [Proair Hfa] 2 puff INHALATION BID 07/20/21 Atorvastatin Calcium [Lipitor] 10 mg PO DAILY 07/20/21 Fluticasone Nasal [place] [Flonase Nasal [place]] 1 spray EA NOSTRIL BID 07/20/21 Fluticasone Propionate 110 Mcg [Flovent 110 Mcg Inhaler (Mhu)] 2 puff INHALATION RT-BID 07/20/21 Ipratropium [place] [Atrovent Hfa] 2 puff INHALATION TID 07/20/21 Loratadine [Claritin] 10 mg PO DAILY 07/20/21
== END ==
LOC: PNWHC3 09:36
PROVIDERS: ATTEND Physician Assistant Medical
DX: M50.30 Other cervical disc degeneration, unspecified cervical region (principal); M47.812 Spondylosis without myelopathy or radiculopathy, cervical region; G89.29 Other chronic pain; F17.200 Nicotine dependence, unspecified, uncomplicated; Z88.5 Allergy status to narcotic agent
CPT/HCPCS: 99211

== ENCOUNTER 2022-08-30 10:51 | Inpatient (IN) | payer MEDICARE, OTHER ==
--- NOTE | 2022-08-30 10:59 | ED ---
General Adult HPI - General Stated complaint: SOB Time Seen by Provider: 08/30/22 10:57 Source: patient, RN notes reviewed Mode of arrival: ambulatory Limitations: no limitations - History of Present Illness Initial comments: 67-year-old female presents emergency Department chief complaint of being sick for 1 week. Patient states she has worked up for cough with phlegm. Patient states that she's had no improvement. Patient is having mild nasal congestion. Patient does admit to nausea without vomiting. Patient states she does feel weak. Patient states she has some tightness in her neck. Denies chest pain. Patient does feel short of breath. Patient does have a history of COPD. - Related Data Home Medications Medication Instructions Recorded Confirmed Sertraline [Zoloft] 100 mg PO HS 05/01/18 10/20/21 Albuterol Sulfate [Proair Hfa] 2 puff INHALATION BID 07/20/21 10/20/21 Atorvastatin Calcium [Lipitor] 10 mg PO DAILY 07/20/21 10/20/21 Fluticasone Nasal [place] [Flonase 1 spray EA NOSTRIL BID 07/20/21 10/20/21 Nasal [place]] Fluticasone Propionate 110 Mcg 2 puff INHALATION RT-BID 07/20/21 10/20/21 [Flovent 110 Mcg Inhaler (Mhu)] Ipratropium [place] [Atrovent Hfa] 2 puff INHALATION TID 07/20/21 10/20/21 Loratadine [Claritin] 10 mg PO DAILY 07/20/21 10/20/21 Allergies Allergy/AdvReac Type Severity Reaction Status Date / Time codeine AdvReac Nausea & Verified 08/30/22 11:01 Vomiting morphine AdvReac Nausea & Verified 08/30/22 11:01 Vomiting Review of Systems ROS Statement: Those systems with pertinent positive or pertinent negative responses have been documented in the HPI. ROS Other: All systems not noted in ROS Statement are negative. Past Medical History Past Medical History: COPD, Memory Impairment, Musculoskeletal Disorder, Osteoarthritis (OA), Pneumonia, Sleep Apnea/CPAP/BIPAP Additional Past Medical History / Comment(s): Hx Blood clot bottom left foot, does not use CPAP or BIPAP,urinary leakage, DDD. pt attributes cough to copd History of Any Multi-Drug Resistant Organisms: None Reported Past Surgical History: Bladder Surgery, Section, Cholecystectomy, Hernia Repair, Hysterectomy, Joint Replacement, Orthopedic Surgery, Tonsillectomy Additional Past Surgical History / Comment(s): Total Right hip arthroplasty, Le ft knee arthroscopy x 2, EGD, Bladder suspension. TOTAL LT HIP 05/08/18, total left hip revision 09-11-2018, thyroid nodule biopsy-neg , PAIN CLINIC INJECTION Past Anesthesia/Blood Transfusion Reactions: No Reported Reaction Smoking Status: Current every day smoker - Past Family History Mother Family Medical History: Cancer Additional Family Medical History / Comment(s): Pt does not recall type of cancer. Sister(s) Family Medical History: Cancer Father Family Medical History: No Reported History Additional Family Medical History / Comment(s): Father was healthy until the time of his at age 85 yrs. He did have history of diabetes and myocardial infarction. Patient is 2 brothers and 2 sisters with no major medical problems. Brother(s) Family Medical History: Cancer Additional Family Medical History / Comment(s): KIDNEY CA, General Exam Limitations: no limitations General appearance: alert, in no apparent distress Head exam: Present: atraumatic, normocephalic, normal inspection Eye exam: Present: normal appearance, PERRL, EOMI. Absent: scleral icterus, conjunctival injection, periorbital swelling ENT exam: Present: normal exam, normal oropharynx, mucous membranes moist Neck exam: Present: normal inspection, full ROM. Absent: tenderness, meningismus, lymphadenopathy Respiratory exam: Present: normal lung sounds bilaterally. Absent: respiratory distress, wheezes, rales, rhonchi, stridor Cardiovascular Exam: Present: tachycardia, irregular rhythm, normal heart sounds. Absent: regular rate, normal rhythm, systolic murmur, diastolic murmur, rubs, gallop, clicks GI/Abdominal exam: Present: soft, normal bowel sounds. Absent: distended, tenderness, guarding, rebound, rigid Course Vital Signs 08/30/22 08/30/22 08/30/22 10:56 12:00 12:20 Temperature 97.9 F Pulse Rate 114 H 95 110 H Respiratory 22 18 12 Rate Blood Pressure 81/50 95/75 96/67 O2 Sat by Pulse 97 99 95 Oximetry 08/30/22 08/30/22 08/30/22 12:30 12:40 12:50 Temperature Pulse Rate 115 H 112 H 91 Respiratory 13 15 20 Rate Blood Pressure 96/67 101/71 93/74 O2 Sat by Pulse 93 L 97 96 Oximetry 08/30/22 08/30/22 13:00 13:10 Temperature Pulse Rate 87 90 Respiratory 43 H 24 Rate Blood Pressure 93/74 108/77 O2 Sat by Pulse Oximetry Medical Decision Making - Medical Decision Making Was pt. sent in by a medical professional or institution? @ -no Did you speak to anyone other than the patient for history? @ -no Did you review nursing and triage notes? @ -agree and reviewed Were old charts reviewed? @ -no Differential Diagnosis? @ -Differential Dyspnea: Coronary syndrome, arrhythmia, tamponade, asthma, COPD, pulmonary embolism, pneumonia, pneumothorax, pulmonary effusion, anaphylaxis, diabetic ketoacidosis, flailed chest, pulmonary contusion, diaphragmatic rupture, anemia, neuromuscular, this is not meant to be an all-inclusive list. EKG interpreted by me (3pts min.)? @ -EKG performed at 11:09 to a primary A. fib RVR rate of 123, QRS 86 QT/QTC 304/377 X-rays interpreted by me (1pt min.)? @ -Chest x-ray interpreted by me no acute process CT interpreted by me (1pt min.)? @ -no U/S interpreted by me (1pt. min.)? @ -no What testing was considered but not performed? (CT, X-rays, U/S, labs)? Why? @ no What meds were considered but not given? Why? @ -Cardizem though patient tolerated improved without. Did you discuss the management of the patient with other professionals? @ -Hospitalist Did you reconcile home meds? @ -yes Was smoking cessation discussed for >3mins.? @ -no Was critical care preformed (if so, how long)? @ -35 Were there social determinants of health that impacted care today? How? (Homelessness, low income, unemployed, alcoholism, drug addiction, transportation, low edu. Level, literacy, decrease access to med. care, snf, rehab)? @ -no Was there de-escalation of care discussed even if they declined? (Discuss DNR or withdrawal of care, Hospice)? @ -no What co-morbidities impacted this encounter? (DM, HTN, Smoking, COPD, CAD, Cancer, CVA, Hep., AIDS, mental health diagnosis, sleep apnea, morbid obesity)? @ -COPD Was patient admitted / discharged? @ -Admitted Undiagnosed new problem with uncertain prognosis? @ -no Drug Therapy requiring intensive monitoring for toxicity (Heparin, Nitro, Insulin, Cardizem)? @ -heparin Were any procedures done? @ -no Diagnosis/symptom? @ -New onset atrial fibrillation, RVR Acute, or Chronic, or Acute on Chronic? @ -Acute Uncomplicated (without systemic symptoms) or Complicated (systemic symptoms)? @ -complicated Side effects of treatment? @ -no Exacerbation, Progression, or Severe Exacerbation] @ -no Poses a threat to life or bodily function? @ -no Diagnosis/symptom? @ -COVID-19 Acute, or Chronic, or Acute on Chronic? @ -Acute Uncomplicated (without systemic symptoms) or Complicated (systemic symptoms)? @ -complicated Side effects of treatment? @ -no Exacerbation, Progression, or Severe Exacerbation] @ -no Poses a threat to life or bodily function? @ -no - Lab Data Result diagrams: 08/30/22 11:24 08/30/22 11:24 Lab Results 08/30/22 08/30/22 08/30/22 Range/Units 11:24 11:24 11:24 WBC 6.8 (3.8-10.6) k/uL RBC 5.60 H (3.80-5.40) m/uL Hgb 17.9 H (11.4-16.0) gm/dL Hct 51.0 H (34.0-46.0) % MCV 91.1 (80.0-100.0) fL MCH 32.0 (25.0-35.0) pg MCHC 35.1 (31.0-37.0) g/dL RDW 12.3 (11.5-15.5) % Plt Count 224 (150-450) k/uL MPV 9.2 Neutrophils % 76 % Lymphocytes % 13 % Monocytes % 8 % Eosinophils % 0 % Basophils % 1 % Neutrophils # 5.2 (1.3-7.7) k/uL Lymphocytes # 0.9 L (1.0-4.8) k/uL Monocytes # 0.5 (0-1.0) k/uL Eosinophils # 0.0 (0-0.7) k/uL Basophils # 0.0 (0-0.2) k/uL PT 9.9 (9.0-12.0) sec INR 0.9 (<1.2) APTT 26.6 (22.0-30.0) sec Sodium (137-145) mmol/L Potassium (3.5-5.1) mmol/L Chloride (98-107) mmol/L Carbon Dioxide (22-30) mmol/L Anion Gap mmol/L BUN (7-17) mg/dL Creatinine (0.52-1.04) mg/dL Est GFR (CKD-EPI)AfAm (>60 ml/min/1.73 sqM) Est GFR (CKD-EPI)NonAf (>60 ml/min/1.73 sqM) Glucose (74-99) mg/dL Plasma Lactic Acid Daniel (0.7-2.0) mmol/L Calcium (8.4-10.2) mg/dL Magnesium (1.6-2.3) mg/dL Total Bilirubin (0.2-1.3) mg/dL AST (14-36) U/L ALT (4-34) U/L Alkaline Phosphatase (38-126) U/L Troponin I (0.000-0.034) ng/mL Total Protein (6.3-8.2) g/dL Albumin (3.5-5.0) g/dL Influenza Type A (PCR) Not Detected (Not Detectd) Influenza Type B (PCR) Not Detected (Not Detectd) RSV (PCR) Not Detected (Not Detectd) SARS-CoV-2 (PCR) Detected A (Not Detectd) 08/30/22 08/30/22 08/30/22 Range/Units 11:24 11:24 11:24 WBC (3.8-10.6) k/uL RBC (3.80-5.40) m/uL Hgb (11.4-16.0) gm/dL Hct (34.0-46.0) % MCV (80.0-100.0) fL MCH (25.0-35.0) pg MCHC (31.0-37.0) g/dL RDW (11.5-15.5) % Plt Count (150-450) k/uL MPV Neutrophils % % Lymphocytes % % Monocytes % % Eosinophils % % Basophils % % Neutrophils # (1.3-7.7) k/uL Lymphocytes # (1.0-4.8) k/uL Monocytes # (0-1.0) k/uL Eosinophils # (0-0.7) k/uL Basophils # (0-0.2) k/uL PT (9.0-12.0) sec INR (<1.2) APTT (22.0-30.0) sec Sodium 137 (137-145) mmol/L Potassium 4.0 (3.5-5.1) mmol/L Chloride 108 H (98-107) mmol/L Carbon Dioxide 18 L (22-30) mmol/L Anion Gap 11 mmol/L BUN 17 (7-17) mg/dL Creatinine 0.69 (0.52-1.04) mg/dL Est GFR (CKD-EPI)AfAm >90 (>60 ml/min/1.73 sqM) Est GFR (CKD-EPI)NonAf >90 (>60 ml/min/1.73 sqM) Glucose 111 H (74-99) mg/dL Plasma Lactic Acid Daniel 1.3 (0.7-2.0) mmol/L Calcium 8.8 (8.4-10.2) mg/dL Magnesium 1.8 (1.6-2.3) mg/dL Total Bilirubin 0.7 (0.2-1.3) mg/dL AST 41 H (14-36) U/L ALT 40 H (4-34) U/L Alkaline Phosphatase 63 (38-126) U/L Troponin I <0.012 (0.000-0.034) ng/mL Total Protein 7.0 (6.3-8.2) g/dL Albumin 4.0 (3.5-5.0) g/dL Influenza Type A (PCR) (Not Detectd) Influenza Type B (PCR) (Not Detectd) RSV (PCR) (Not Detectd) SARS-CoV-2 (PCR) (Not Detectd) Critical Care Time Critical Care Time: Yes Total Critical Care Time: 35 Disposition Clinical Impression: COVID-19, Hypoxia, Hypotension, New onset a-fib Disposition: ADMITTED IP TO THIS [facility] Condition: Fair Referrals: Pj Alcocer III, MD [Primary Care Provider] - 1-2 days Time of Disposition: 13:23
[2022-08-30] MEDS ORDERED: SODIUM CHLORIDE 0.9% 1,000 ML IV ONE (11:04)
[2022-08-30 11:50] LABS: Basophils % (A) 1 %; Eosinophils % (A) 0 %; HGB 17.9 gm/dL (11.4-16.0); Lymphocytes # (A) 0.9 k/uL (1.0-4.8); Lymphocytes % (A) 13 %; MCHC 35.1 g/dL (31.0-37.0); MCV 91.1 fL (80.0-100.0); Mean Platelet Volume 9.2; Monocytes # (A) 0.5 k/uL (0-1.0); Monocytes % (A) 8 %; Neutrophils # (A) 5.2 k/uL (1.3-7.7); Neutrophils % (A) 76 %; Platelet Count 224 k/uL (150-450); RDW 12.3 % (11.5-15.5); WBC 6.8 k/uL (3.8-10.6)
--- NOTE | 2022-08-30 11:56 | XR ---
EXAMINATION TYPE: XR chest 2V DATE OF EXAM: 08/30/2022 COMPARISON: Chest x-ray December 18, 2019 HISTORY: Cough TECHNIQUE: Frontal and lateral views of the chest are obtained. FINDINGS: There is some chronic parenchymal changes bilaterally without suspicious new focal air spa ce opacity, pleural effusion, or pneumothorax seen. The cardiac silhouette size is stable and within normal limits. The osseous structures are intact. IMPRESSION: Chronic changes without acute pulmonary process. No significant change from prior.
[2022-08-30 11:59] LABS: ALT 40 U/L (4-34); AST 41 U/L (14-36); African American GFR (CKD) >90 (>60 ml/min/1.73 sqM); Alkaline Phosphatase 63 U/L (38-126); Anion Gap 11 mmol/L; Blood Urea Nitrogen 17 mg/dL (7-17); Calcium 8.8 mg/dL (8.4-10.2); Carbon Dioxide 18 mmol/L (22-30); Chloride 108 mmol/L (98-107); Glucose 111 mg/dL (74-99); Magnesium 1.8 mg/dL (1.6-2.3); Non-African American GFR(CKD) >90 (>60 ml/min/1.73 sqM); Sodium 137 mmol/L (137-145); Total Bilirubin 0.7 mg/dL (0.2-1.3)
[2022-08-30 12:07] LABS: INR 0.9 (<1.2); Partial Thromboplastin Time 26.6 sec (22.0-30.0); Prothrombin Time 9.9 sec (9.0-12.0)
[2022-08-30] MEDS ORDERED: SODIUM CHLORIDE 0.9% 500 ML 500 ML IV ONE (12:27)
[2022-08-30] MEDS ORDERED: HEPARIN SODIUM 1,000 UN/ML (10ML VL) IV ONE (13:14)
[2022-08-30] MEDS ORDERED: HEPARIN SODIUM 1,000 UN/ML (10ML VL) IV PRN (13:14)
[2022-08-30] MEDS ORDERED: NALOXONE 0.4 MG/ML 1 ML VIAL IV PRN (13:43)
[2022-08-30] MEDS ORDERED: ACETAMINOPHEN TAB 325 MG TAB PO PRN (13:43)
[2022-08-30] MEDS ORDERED: ONDANSETRON 4 MG/2 ML VIAL IVP PRN (13:43)
[2022-08-30] MEDS: HEPARIN SOD,PORK IN 0.45% NACL 25,000 UNIT in 0.45% NACL 1 250ML.BAG IV SCH (13:49)
[2022-08-30] MEDS: CHOLECALCIFEROL 25 MCG (1000 IU) TABLET PO SCH (15:19)
[2022-08-30] MEDS: ASCORBIC ACID 500 MG TAB PO SCH (15:19)
[2022-08-30] MEDS: SODIUM CHLORIDE 0.9% 1,000 ML IV SCH (15:32)
[2022-08-30] MEDS: ALBUTEROL HFA INHALER INHALATION PRN ×2 (16:49→20:41)
[2022-08-30] MEDS: AMOXIC-POT CLAV 875-125MG 1 EACH TAB PO SCH (20:17)
[2022-08-30] MEDS: SYMBICORT 160-4.5 MCG INHALER INHALATION SCH (20:42)
--- NOTE | 2022-08-30 22:08 | P.CONS ---
History of Present Illness - Reason for Consult Consult date: 08/30/22 Covid 19 infection Requesting physician: Yogesh Burgess - Chief Complaint Not feeling well x 1 week - History of Present Illness Patient is a 67-year-old female with a past medical history significant for COPD presenting to the ER for evaluation of not feeling well and sick for about a week since the [place] in the patient has been complaining of cough mild to moderate intensity with occasional sputum production no hemoptysis no pleuritic chest pain also have mild URI symptoms with nasal congestion but no significant sore throat patient did have some nausea but no vomiting with the symptom the patient has been evaluated by ER physician on arrival to the ER the patient was afebrile and no fever have recorded subsequently patient is currently satting 96% room air patient did have a normal white count kidney function has been normal liver exams mildly elevated COVID test came back positive influenza RSV was negative patient did have a chest x-ray chronic changes without acute pulmonary process no significant change from prior patient also diagnosed with A. fib and has been started on heparin per weight-based protocol infectious he was consulted because of the positive COVID test and need for further treatment Review of Systems Positive point has been mentioned in the HPI rest of the systems are negative Past Medical History Past Medical History: COPD, Memory Impairment, Musculoskeletal Disorder, Osteoarthritis (OA), Pneumonia, Sleep Apnea/CPAP/BIPAP Additional Past Medical History / Comment(s): Hx Blood clot bottom left foot, does not use CPAP or BIPAP,urinary leakage, DDD. pt attributes cough to copd History of Any Multi-Drug Resistant Organisms: None Reported Past Surgical History: Bladder Surgery, Section, Cholecystectomy, Hernia Repair, Hysterectomy, Joint Replacement, Orthopedic Surgery, Tonsillectomy Additional Past Surgical History / Comment(s): Total Right hip arthroplasty, Left knee arthroscopy x 2, EGD, Bladder suspension. TOTAL LT HIP 05/08/18, total left hip revision 09-11-2018, thyroid nodule biopsy-neg , PAIN CLINIC INJECTION Past Anesthesia/Blood Transfusion Reactions: No Reported Reaction Smoking Status: Current every day smoker - Past Family History Mother Family Medical History: Cancer Additional Family Medical History / Comment(s): Pt does not recall type of cancer. Sister(s) Family Medical History: Cancer Father Family Medical History: No Reported History Additional Family Medical History / Comment(s): Father was healthy until the time of his at age 85 yrs. He did have history of diabetes and myocardial infarction. Patient is 2 brothers and 2 sisters with no major medical problems. Brother(s) Family Medical History: Cancer Additional Family Medical History / Comment(s): KIDNEY CA, Medications and Allergies Home Medications Medication Instructions Recorded Confirmed Type Albuterol Inhaler [Ventolin Hfa 1 puff INHALATION RT-Q4H PRN 08/30/22 08/30/22 History Inhaler] Amoxic-Pot Clav 875-125Mg 1 tab PO Q12H 08/30/22 08/30/22 History [Augmentin 875-125] Budesonide/Formoterol Fumarate 2 puff INHALATION RT-BID 08/30/22 08/30/22 History [Symbicort 160-4.5 Mcg Inhaler] Sertraline [Zoloft] 100 mg PO DAILY 08/30/22 08/30/22 History Ascorbic Acid [Vitamin C] 500 mg PO DAILY tab 09/02/22 Rx Cholecalciferol [Vitamin D3 (25 50 mcg PO DAILY 30 Days #30 tab 09/02/22 Rx Mcg = 1000 Iu)] Famotidine [Pepcid] 20 mg PO BID tab 09/02/22 Rx Zinc Sulfate [Orazinc] 220 mg PO DAILY 30 Days #30 cap 09/02/22 Rx Allergies Allergy/AdvReac Type Severity Reaction Status Date / Time codeine AdvReac Nausea & Verified 08/30/22 13:46 Vomiting morphine AdvReac Nausea & Verified 08/30/22 13:46 Vomiting Physical Exam Vitals: Vital Signs Temp Pulse Resp BP Pulse Ox 08/30/22 20:00 65 24 100/67 96 08/30/22 16:00 102/60 08/30/22 15:50 78 20 102/60 96 08/30/22 15:40 77 17 97/75 97 08/30/22 15:30 78 20 101/68 08/30/22 15:20 26 H 101/68 96 08/30/22 15:10 90 19 08/30/22 15:00 92 24 114/66 95 08/30/22 14:50 114/66 08/30/22 14:40 90 20 98/77 96 08/30/22 14:30 86 21 98/66 08/30/22 14:20 96 24 98/66 95 08/30/22 14:10 101 H 28 H 99/56 95 08/30/22 14:00 113 H 29 H 87/56 96 08/30/22 13:50 137 H 20 87/56 96 08/30/22 13:40 14 87/66 95 08/30/22 13:10 90 24 108/77 08/30/22 13:00 87 43 H 93/74 08/30/22 12:50 91 20 93/74 96 08/30/22 12:40 112 H 15 101/71 97 08/30/22 12:30 115 H 13 96/ 93 L 08/30/22 12:20 110 H 12 96/ 95 08/30/22 12:00 95 18 95/75 99 08/30/22 10:56 97.9 F 114 H 22 81/50 97 Intake and Output 08/30/22 08/30/22 08/30/22 06:59 14:59 22:59 Other: Weight 58.967 kg GENERAL DESCRIPTION: Elderly female lying in bed, no distress. No tachypnea or accessory muscle of respiration use. HEENT: Shows Pallor , no scleral icterus. Oral mucous membrane is dry. No pharyngeal erythema or thrush NECK: Trachea central, no thyromegaly. LUNGS: Unlabored breathing. Decreased intensity of breath sounds. No wheeze or crackle. HEART: S1, S2, regular rate and rhythm. No loud murmur ABDOMEN: Soft, no tenderness , guarding or rigidity, no organomegaly EXTREMITIES: No edema of feet. SKIN: No rash, no masses palpable. NEUROLOGICAL: The patient is awake, alert, oriented x3, mood and affect normal. Results CBC & Chem 7: 09/01/22 03:59 09/01/22 03:59 Labs: Abnormal Lab Results - Last 24 Hours (Table) 08/30/22 08/30/22 08/30/22 Range/Units 11:24 11:24 11:24 RBC 5.60 H (3.80-5.40) m/uL Hgb 17.9 H (11.4-16.0) gm/dL Hct 51.0 H (34.0-46.0) % Lymphocytes # 0.9 L (1.0-4.8) k/uL APTT (22.0-30.0) sec D-Dimer (<0.60) mg/L FEU Chloride 108 H (98-107) mmol/L Carbon Dioxide 18 L (22-30) mmol/L Glucose 111 H (74-99) mg/dL AST 41 H (14-36) U/L ALT 40 H (4-34) U/L SARS-CoV-2 (PCR) Detected A (Not Detectd) 08/30/22 08/30/22 Range/Units 15:40 19:16 RBC (3.80-5.40) m/uL Hgb (11.4-16.0) gm/dL Hct (34.0-46.0) % Lymphocytes # (1.0-4.8) k/uL APTT 46.2 H (22.0-30.0) sec D-Dimer 1.56 H (<0.60) mg/L FEU Chloride (98-107) mmol/L Carbon Dioxide (22-30) mmol/L Glucose (74-99) mg/dL AST (14-36) U/L ALT (4-34) U/L SARS-CoV-2 (PCR) (Not Detectd) Assessment and Plan (1) COVID-19 Status: Acute Code(s): U07.1 - COVID-19 SNOMED Code(s): 929964659 Plan: 1patient with the hospital not feeling well shortness of breath and cough symptom has been going on for about a week likely multifactorial in this patient has been diagnosed with COVID-19 also with A. fib with RVR likely contribute to some of her symptoms, as far as the COVID the patient is currently not hypoxic or need for supplemental oxygen chest x-ray did not show any acute findings treatment will be mostly supportive. 2patient to continue with Heparin for underlying A. fib along with zinc and as corbic acid. 3no need for steroids or remdesivir. 4droplet isolation We will follow on clinical condition and cultures to further adjust medication if needed Thank you for this consultation we will follow the patient along with you Time with Patient: Greater than 30
--- NOTE | 2022-08-30 22:20 | P.HPIM ---
History of Present Illness H&P Date: 08/30/22 Chief Complaint: Shortness of breath 67-year-old female presents emergency Department chief complaint of being sick for 1 week. Patient states she has worked up for cough with phlegm. Patient states that she's had no improvement. Patient is having mild nasal congestion. Patient does admit to nausea without vomiting. Patient states she does feel weak. Patient states she has some tightness in her neck. Denies chest pain. Patient does feel short of breath. Patient does have a history of COPD. on arrival to the ER the patient was afebrile and no fever have recorded subsequently patient is currently satting 96% room air patient did have a normal white count kidney function has been normal liver exams mildly elevated COVID test came back positive influenza RSV was negative patient did have a chest x- ray chronic changes without acute pulmonary process no significant change from prior patient also diagnosed with A. fib and has been started on heparin per weight-based protocol Review of Systems REVIEW OF SYSTEMS: CONSTITUTIONAL: No fever, no malaise, no fatigue. HEENT: No recent visual problems or hearing problems. Denied any sore throat. CARDIOVASCULAR: No chest pain, orthopnea, PND, no palpitations, no syncope. PULMONARY: No shortness of breath, no cough, no hemoptysis. GASTROINTESTINAL: No diarrhea, no nausea, no vomiting, no abdominal pain. NEUROLOGICAL: No headaches, no weakness, no numbness. HEMATOLOGICAL: Denies any bleeding or petechiae. GENITOURINARY: Denies any burning micturition, frequency, or urgency. MUSCULOSKELETAL/RHEUMATOLOGICAL: Denies any joint pain, swelling, or any muscle pain. ENDOCRINE: Denies any polyuria or polydipsia. The rest of the 14-point review of systems is negative. Past Medical History Past Medical History: COPD, Memory Impairment, Musculoskeletal Disorder, Osteoarthritis (OA), Pneumonia, Sleep Apnea/CPAP/BIPAP Additional Past Medical History / Comment(s): Hx Blood clot bottom left foot, does not use CPAP or BIPAP,urinary leakage, DDD. pt attributes cough to copd History of Any Multi-Drug Resistant Organisms: None Reported Past Surgical History: Bladder Surgery, Section, Cholecystectomy, Hernia Repair, Hysterectomy, Joint Replacement, Orthopedic Surgery, Tonsillectomy Additional Past Surgical History / Comment(s): Total Right hip arthroplasty, Left knee arthroscopy x 2, EGD, Bladder suspension. TOTAL LT HIP 9/11/18, total left hip revision 09-11-2018, thyroid nodule biopsy-neg , PAIN CLINIC INJECTION Past Anesthesia/Blood Transfusion Reactions: No Reported Reaction Smoking Status: Current every day smoker - Past Family History Mother Family Medical History: Cancer Additional Family Medical History / Comment(s): Pt does not recall type of cancer. Sister(s) Family Medical History: Cancer Father Family Medical History: No Reported History Additional Family Medical History / Comment(s): Father was healthy until the time of his at age 85 yrs. He did have history of diabetes and myocardial infarction. Patient is 2 brothers and 2 sisters with no major medical problems. Brother(s) Family Medical History: Cancer Additional Family Medical History / Comment(s): KIDNEY CA, Medications and Allergies Home Medications Medication Instructions Recorded Confirmed Type Albuterol Inhaler [Ventolin Hfa 1 puff INHALATION RT-Q4H PRN 08/30/22 08/30/22 History Inhaler] Amoxic-Pot Clav 875-125Mg 1 tab PO Q12H 08/30/22 08/30/22 History [Augmentin 875-125] Budesonide/Formoterol Fumarate 2 puff INHALATION RT-BID 08/30/22 08/30/22 His tory [Symbicort 160-4.5 Mcg Inhaler] Sertraline [Zoloft] 100 mg PO DAILY 08/30/22 08/30/22 History Allergies Allergy/AdvReac Type Severity Reaction Status Date / Time codeine AdvReac Nausea & Verified 08/30/22 13:46 Vomiting morphine AdvReac Nausea & Verified 08/30/22 13:46 Vomiting Physical Exam Vitals: Vital Signs Temp Pulse Resp BP Pulse Ox 08/30/22 13:10 90 24 108/77 08/30/22 13:00 87 43 H 93/74 08/30/22 12:50 91 20 93/74 96 08/30/22 12:40 112 H 15 101/71 97 08/30/22 12:30 115 H 13 96/67 93 L 08/30/22 12:20 110 H 12 96/67 95 08/30/22 12:00 95 18 95/75 99 08/30/22 10:56 97.9 F 114 H 22 81/50 97 Intake and Output 08/29/22 08/30/22 08/30/22 22:59 06:59 14:59 Other: Weight 58.967 kg PHYSICAL EXAMINATION: GENERAL: The patient is alert and oriented x3, not in any acute distress. Well developed, well nourished. HEENT: Pupils are round and equally reacting to light. EOMI. No scleral icterus. No conjunctival pallor. Normocephalic, atraumatic. No pharyngeal erythema. No thyromegaly. CARDIOVASCULAR: S1 and S2 present. No murmurs, rubs, or gallops. PULMONARY: Chest is clear to auscultation, no wheezing or crackles. ABDOMEN: Soft, nontender, nondistended, normoactive bowel sounds. No palpable organomegaly. MUSCULOSKELETAL: No joint swelling or deformity. EXTREMITIES: No cyanosis, clubbing, or pedal edema. NEUROLOGICAL: Gross neurological examination did not reveal any focal deficits. SKIN: No rashes. Results CBC & Chem 7: 08/30/22 11:24 08/30/22 11:24 Labs: Abnormal Lab Results - Last 24 Hours (Table) 08/30/22 08/30/22 08/30/22 Range/Units 11:24 11:24 11:24 RBC 5.60 H (3.80-5.40) m/uL Hgb 17.9 H (11.4-16.0) gm/dL Hct 51.0 H (34.0-46.0) % Lymphocytes # 0.9 L (1.0-4.8) k/uL Chloride 108 H (98-107) mmol/L Carbon Dioxide 18 L (22-30) mmol/L Glucose 111 H (74-99) mg/dL AST 41 H (14-36) U/L ALT 40 H (4-34) U/L SARS-CoV-2 (PCR) Detected A (Not Detectd) Assessment and Plan Assessment: 1. New onset atrial fibrillation - Patient is currently rate controlled; has been placed on IV heparin per protocol - We will monitor EKG and trend troponin; recommend 2-D echo - Cardiology is consulted and recommendations are pending 2. COVID-19 virus infection - Patient has been placed on COVID-19 vitamin cocktail with vitamin D, vitamin C and zinc sulfate; anticoagulated with IV heparin; we will use albuterol inhaler 4 times a day when necessary - Consult ID for further recommendations on viral treatment 3. COPD; not in exacerbation; continue with home inhaler therapy 4. Hyperlipidemia; patient is currently not on any statin therapy 5. Osteoarthritis; symptomatic treatment 6. Depression; Zoloft 100 mg daily DVT prophylaxis; SCDs/subcu Lovenox CODE STATUS; full code
[2022-08-31] MEDS: SODIUM CHLORIDE 0.9% 1,000 ML IV SCH ×2 (05:19→17:21)
[2022-08-31 06:33] LABS: African American GFR (CKD) >90 (>60 ml/min/1.73 sqM); Anion Gap 5 mmol/L; Blood Urea Nitrogen 12 mg/dL (7-17); Calcium 7.8 mg/dL (8.4-10.2); Carbon Dioxide 22 mmol/L (22-30); Chloride 109 mmol/L (98-107); Glucose 87 mg/dL (74-99); Non-African American GFR(CKD) >90 (>60 ml/min/1.73 sqM); Potassium 3.5 mmol/L (3.5-5.1); Sodium 136 mmol/L (137-145)
[2022-08-31 07:07] LABS: Basophils % (A) 0 %; Eosinophils % (A) 0 %; HCT 42.3 % (34.0-46.0); Lymphocytes # (A) 1.4 k/uL (1.0-4.8); Lymphocytes % (A) 20 %; MCH 31.8 pg (25.0-35.0); MCHC 34.9 g/dL (31.0-37.0); Mean Platelet Volume 10.5; Monocytes # (A) 0.6 k/uL (0-1.0); Monocytes % (A) 9 %; Neutrophils % (A) 70 %; Platelet Count 179 k/uL (150-450); RBC 4.65 m/uL (3.80-5.40); RDW 12.7 % (11.5-15.5); WBC 7.1 k/uL (3.8-10.6)
[2022-08-31 07:17] LABS: INR 0.9 (<1.2); Prothrombin Time 10.1 sec (9.0-12.0)
[2022-08-31 07:19] LABS: HGB 14.8 gm/dL (11.4-16.0)
[2022-08-31] MEDS: ALBUTEROL HFA INHALER INHALATION PRN ×2 (07:48→20:31)
[2022-08-31] MEDS: SYMBICORT 160-4.5 MCG INHALER INHALATION SCH ×2 (07:53→20:31)
[2022-08-31] MEDS: AMOXIC-POT CLAV 875-125MG 1 EACH TAB PO SCH ×2 (09:43→21:10)
[2022-08-31] MEDS: ZINC SULFATE 220 MG CAP PO SCH (09:43)
[2022-08-31] MEDS: ASCORBIC ACID 500 MG TAB PO SCH (09:43)
[2022-08-31] MEDS: CHOLECALCIFEROL 25 MCG (1000 IU) TABLET PO SCH (09:43)
[2022-08-31] MEDS: SERTRALINE 100 MG TAB PO SCH (09:43)
--- NOTE | 2022-08-31 09:43 | CA ---
Transthoracic Echo Report Name: Teresa Valverde Age: 67 Gender: F : 1955 Exam Date: 08/30/2022 15:06 Exam Location: [place] [facility] Ht (in): 67 Wt (lb): 130 Ordering Physician: Lavon Irizarry Attending/Referring Phys: [id number], Juan C Air Deodorizer Servicer Stefani Johnson RDCS Procedure CPT: Indications: New onset afib Cardiac Hx: Technical Quality: Fair Contrast 1: Total Dose (mL): Contrast 2: Total Dose (mL): MEASUREMENTS (Male / Female) Normal Values 2D ECHO LV Diastolic Diameter PLAX 3.8 cm 4.2 - 5.9 / 3.9 - 5.3 cm LV Systolic Diameter PLAX 2.6 cm IVS Diastolic Thickness 1.0 cm 0.6 - 1.0 / 0.6 - 0.9 cm LVPW Diastolic Thickness 1.1 cm 0.6 - 1.0 / 0.6 - 0.9 cm LV Relative Wall Thickness 0.5 LA Volume 40.8 cm??? 18 - 58 / 22 - 52 cm??? DOPPLER AV Peak Velocity 138.5 cm/s AV Peak Gradient 7.7 mmHg TR Peak Velocity 150.2 cm/s TR Peak Gradient 9.0 mmHg Right Ventricular Systolic Press 14.0 mmHg FINDINGS Left Ventricle Mildly increased septal wall thickness. Mildly increased posterior wall thickness. Normal left ventricular systolic function with no obvious regional wall motion abnormalities. Left ventricular ejection fraction is estimated at 55 %. Right Ventricle Normal right ventricular size and function. Right Atrium Normal right atrial size. Left Atrium Normal left atrial size. Mitral Valve Structurally normal mitral valve. Mild mitral regurgitation. Aortic Valve No aortic valve stenosis or regurgitation. Tricuspid Valve Mild tricuspid regurgitation. Pulmonic Valve Structurally normal pulmonic valve. Trace pulmonic regurgitation. Pericardium No pericardial effusion. Aorta Normal size aortic root and proximal ascending aorta. CONCLUSIONS Normal left ventricular ejection fraction 55% Mild increased left ventricular wall thickness Mild mitral regurgitation Mild tricuspid regurgitation No pericardial effusion Previewed by: Dr. Dilan Simpson DO (Electronically Signed) Final Date: 31 August 2022 09:43
--- NOTE | 2022-08-31 10:56 | P.CRDCN ---
History of Present Illness Consult date: 08/31/22 Consult reason: atrial fibrillation Chief complaint: cough History of present illness: History of present illness: This is a 67-year-old female with past medical history of COPD and tobacco use. Patient denies having any cardiac history, no previous stress test or cardiac catheterization done. 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 Patient has cough with sputum production along with nausea without vomiting for the past week or more. She came in the hospital was diagnosed with Covid 19. Patient is seen today in the emergency center waiting for a bed on the cardiac stepdown unit. We have been consulted due to new onset of atrial fibrillation. Patient is status post 1-1/2 L of IV fluids and is on a heparin drip. She is smoking 1 pack per day for 50 years. 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 EKG atrial fibrillation at heart rate of 123 Chest x-ray shows chronic changes without acute pulmonary process WBC 7.1, hemoglobin 14.8. Platelet count 224. Potassium 3.5. The 112 and cr eatinine 0.51. D-dimer 1.56. Covid 19 positive. Review Of Systems: Constitutional: No fever, no chills. EENT: No headache. No dizziness. Lungs: Reports shortness of breath, reports cough, reports sputum production. No wheezing. Cardiovascular: No chest pain, no lower extremity edema. No palpitations. No paroxysmal nocturnal dyspnea. No orthopnea. No lightheadedness or dizziness. No syncopal episodes. Abdominal: No abdominal pain. Reports nausea, no vomiting. No diarrhea. No bloody or tarry stools. Integumentary: No wounds, no lesions. No rash or pruritus. No unusual bruisin g. Neurologic: No aphasia. No facial droop. No change in mentation. Physical examination: Gen: This is a 67-year-old female resting on ER stretcher. Occasional cough noted. No acute respiratory distress noted VS: reviewed NEUROLOGICAL: Patient is awake, alert and oriented x3. Assessment: Covid 19 infection New-onset atrial fibrillation, paroxysmal, converted to sinus rhythm COPD Tobacco use and dependence Plan: Continue heparin drip for another 24 hours due to Covid 19 diagnosis Further recommendations to follow based upon clinical course Thank you kindly for this consultation. Nurse practitioner note has been reviewed, I agree with documented findings and plan of care. Patient was seen and examined. Past Medical History Past Medical History: COPD, Memory Impairment, Musculoskeletal Disorder, Osteoarthritis (OA), Pneumonia, Sleep Apnea/CPAP/BIPAP Additional Past Medical History / Comment(s): Hx Blood clot bottom left foot, does not use CPAP or BIPAP,urinary leakage, DDD. pt attributes cough to copd History of Any Multi-Drug Resistant Organisms: None Reported Past Surgical History: Bladder Surgery, Section, Cholecystectomy, Hernia Repair, Hysterectomy, Joint Replacement, Orthopedic Surgery, Tonsillectomy Additional Past Surgical History / Comment(s): Total Right hip arthroplasty, Left knee arthroscopy x 2, EGD, Bladder suspension. TOTAL LT HIP 05/08/18, total left hip revision 09-11-2018, thyroid nodule biopsy-neg , PAIN CLINIC INJECTION Past Anesthesia/Blood Transfusion Reactions: No Reported Reaction Smoking Status: Current every day smoker - Past Family History Mother Family Medical History: Cancer Additional Family Medical History / Comment(s): Pt does not recall type of cancer. Sister(s) Family Medical History: Cancer Father Family Medical History: No Reported History Additional Family Medical History / Comment(s): Father was healthy until the time of his at age 85 yrs. He did have history of diabetes and myocardial infarction. Patient is 2 brothers and 2 sisters with no major medical problems. Brother(s) Family Medical History: Cancer Additional Family Medical History / Comment(s): KIDNEY CA, Medications and Allergies Home Medications Medication Instructions Recorded Confirmed Type Albuterol Inhaler [Ventolin Hfa 1 puff INHALATION RT-Q4H PRN 08/30/22 08/30/22 History Inhaler] Amoxic-Pot Clav 875-125Mg 1 tab PO Q12H 08/30/22 08/30/22 History [Augmentin 875-125] Budesonide/Formoterol Fumarate 2 puff INHALATION RT-BID 08/30/22 08/30/22 History [Symbicort 160-4.5 Mcg Inhaler] Sertraline [Zoloft] 100 mg PO DAILY 08/30/22 08/30/22 History Allergies Allergy/AdvReac Type Severity Reaction Status Date / Time codeine AdvReac Nausea & Verified 08/30/22 13:46 Vomiting morphine AdvReac Nausea & Verified 08/30/22 13:46 Vomiting Physical Exam Vitals: Vital Signs Temp Pulse Resp BP Pulse Ox 08/31/22 06:33 56 L 12 103/65 98 08/31/22 03:43 52 L 12 94 L 08/30/22 23:38 60 14 103/63 93 L 08/30/22 20:00 65 24 100/67 96 08/30/22 16:00 102/60 08/30/22 15:50 78 20 102/60 96 08/30/22 15:40 77 17 97/75 97 08/30/22 15:30 78 20 101/68 08/30/22 15:20 26 H 101/68 96 08/30/22 15:10 90 19 08/30/22 15:00 92 24 114/66 95 08/30/22 14:50 114/66 08/30/22 14:40 90 20 98/77 96 08/30/22 14:30 86 21 98/66 08/30/22 14:20 96 24 98/66 95 08/30/22 14:10 101 H 28 H 99/56 95 08/30/22 14:00 113 H 29 H 87/56 96 08/30/22 13:50 137 H 20 87/56 96 08/30/22 13:40 14 87/66 95 08/30/22 13:10 90 24 108/77 08/30/22 13:00 87 43 H 93/74 08/30/22 12:50 91 20 93/74 96 08/30/22 12:40 112 H 15 101/71 97 08/30/22 12:30 115 H 13 96/67 93 L 08/30/22 12:20 110 H 12 96/67 95 08/30/22 12:00 95 18 95/75 99 08/30/22 10:56 97.9 F 114 H 22 81/50 97 Results 08/31/22 05:05 08/31/22 05:05 Cardiac Enzymes 08/30/22 08/30/22 Range/Units 11:24 11:24 AST 41 H (14-36) U/L Troponin I <0.012 (0.000-0.034) ng/mL Coagulation 08/30/22 08/30/22 08/31/22 Range/Units 11:24 19:16 05:05 PT 9.9 10.1 (9.0-12.0) sec APTT 26.6 46.2 H (22.0-30.0) sec CBC 08/30/22 08/31/22 Range/Units 11:24 05:05 WBC 6.8 7.1 (3.8-10.6) k/uL RBC 5.60 H 4.65 (3.80-5.40) m/uL Hgb 17.9 H 14.8 D (11.4-16.0) gm/dL Hct 51.0 H 42.3 (34.0-46.0) % Plt Count 224 179 (150-450) k/uL Comprehensive Metabolic Panel 08/30/22 08/31/22 Range/Units 11:24 05:05 Sodium 137 136 L (137-145) mmol/L Potassium 4.0 3.5 (3.5-5.1) mmol/L Chloride 108 H 109 H (98-107) mmol/L Carbon Dioxide 18 L 22 (22-30) mmol/L BUN 17 12 (7-17) mg/dL Creatinine 0.69 0.51 L (0.52-1.04) mg/dL Glucose 111 H 87 (74-99) mg/dL Calcium 8.8 7.8 L (8.4-10.2) mg/dL AST 41 H (14-36) U/L ALT 40 H (4-34) U/L Alkaline Phosphatase 63 (38-126) U/L Total Protein 7.0 (6.3-8.2) g/dL Albumin 4.0 (3.5-5.0) g/dL Current Medications Generic Name Dose Route Start Last Admin Trade Name Freq PRN Reason Stop Dose Admin Acetaminophen 650 mg 08/30/22 13:43 Acetaminophen Tab 325 Mg Tab PO Q6HR PRN Mild Pain or Fever > 100.5 Albuterol Sulfate 1 puff 08/30/22 14:33 08/31/22 07:48 Albuterol Hfa Inhaler INHALATION 1 puff RT-Q4H PRN Administration Shortness Of Breath Amoxicillin/Clavulanate Potassium 1 each 08/30/22 21:00 08/30/22 20:17 Amoxic-Pot Clav 875-125mg 1 Each Tab PO 09/02/22 21:01 1 each Q12HR VIBHA Administration Protocol Ascorbic Acid 500 mg 08/30/22 14:45 08/30/22 15:19 Ascorbic Acid 500 Mg Tab PO 500 mg DAILY VIBHA Administration Budesonide/Formoterol Fumarate 2 puff 08/30/22 20:00 08/31/22 07:53 Symbicort 160-4.5 Mcg Inhaler INHALATION 2 puff RT-BID VIBHA Administration Cholecalciferol 50 mcg 08/30/22 14:45 08/30/22 15:19 Cholecalciferol 25 Mcg (1000 Iu) Tablet PO 50 mcg DAILY VIBHA Administration Heparin Sodium (Porcine) 0 unit 08/30/22 13:14 Heparin Sodium 1,000 Un/Ml (10ml Vl) IV PER PROTOCOL PRN Low PTT Protocol Heparin Sodium/Sodium Chloride 250 mls @ 7.076 mls/hr 08/30/22 13:15 08/30/22 13:49 25,000 unit/ Sodium Chloride IV 12 units/kg/hr .Q24H VIBHA 7.076 mls/hr Administration Protocol 12 UNITS/KG/HR Sodium Chloride 1,000 mls @ 75 mls/hr 08/30/22 13:45 08/31/22 05:19 Saline 0.9% IV 75 mls/hr .[id number] VIBHA Administration Naloxone HCl 0.2 mg 08/30/22 13:43 Naloxone 0.4 Mg/Ml 1 Ml Vial IV Q2M PRN Opioid Reversal Ondansetron HCl 4 mg 08/30/22 13:43 Ondansetron 4 Mg/2 Ml Vial IVP Q8HR PRN Nausea And Vomiting Sertraline HCl 100 mg 08/31/22 09:00 Sertraline 100 Mg Tab PO DAILY [facility] Zinc Sulfate 220 mg 08/31/22 09:00 Zinc Sulfate 220 Mg Cap PO DAILY [facility] 08/31/22 05:05 08/31/22 05:05
--- NOTE | 2022-08-31 14:48 | P.PN ---
Subjective Progress Note Date: 08/31/22 Principal diagnosis: New-onset atrial fibrillation COVID-19 viral infection 67-year-old female presents emergency Department chief complaint of being sick for 1 week. Patient states she has worked up for cough with phlegm. Patient states that she's had no improvement. Patient is having mild nasal congestion. Patient does admit to nausea without vomiting. Patient states she does feel weak. Patient states she has some tightness in her neck. Denies chest pain. Patient does feel short of breath. Patient does have a history of COPD. on arrival to the ER the patient was afebrile and no fever have recorded subsequently patient is currently satting 96% room air patient did have a normal white count kidney function has been normal liver exams mildly elevated COVID test came back positive influenza RSV was negative patient did have a chest x-r ay chronic changes without acute pulmonary process no significant change from prior patient also diagnosed with A. fib and has been started on heparin per weight-based protocol -- Patient has been evaluated by ID; patient doesn't have any symptoms of Covid 19 infection doesn't qualify for any treatment Cardiology on board; has converted spontaneously to normal sinus rhythm; cardiology recommending to continue with IV heparin infusion for another 24 hours --- Possible discharge in next 24-48 hours once cleared by ID and cardiology Objective - Vital Signs Vital signs: Vital Signs Temp 98.3 F 08/31/22 08:00 Pulse 59 L 08/31/22 08:00 Resp 18 08/31/22 08:00 BP 96/61 08/31/22 08:00 Pulse Ox 97 08/31/22 08:00 FiO2 Intake & Output 08/30/22 08/31/22 08/31/22 18:59 06:59 18:59 Intake Total 240 Balance 240 Weight 58.967 kg Intake: Oral 240 - Exam Constitutional: No fever, no chills. EENT: No headache. No dizziness. Lungs: Reports shortness of breath, reports cough, reports sputum production. No wheezing. Cardiovascular: No chest pain, no lower extremity edema. No palpitations. No paroxysmal nocturnal dyspnea. No orthopnea. No lightheadedness or dizziness. No syncopal episodes. Abdominal: No abdominal pain. Reports nausea, no vomiting. No diarrhea. No bloody or tarry stools. Integumentary: No wounds, no lesions. No rash or pruritus. No unusual bruising. Neurologic: No aphasia. No facial droop. No change in mentation. - Labs CBC & Chem 7: 08/31/22 05:05 08/31/22 05:05 Labs: Abnormal Lab Results - Last 24 Hours (Table) 08/30/22 08/30/22 08/31/22 Range/Units 15:40 19:16 05:05 APTT 46.2 H (22.0-30.0) sec D-Dimer 1.56 H (<0.60) mg/L FEU Sodium 136 L (137-145) mmol/L Chloride 109 H (98-107) mmol/L Creatinine 0.51 L (0.52-1.04) mg/dL Calcium 7.8 L (8.4-10.2) mg/dL Assessment and Plan Assessment: 1. New onset atrial fibrillation - Patient is currently rate controlled; has been placed on IV heparin per protocol - We will monitor EKG and trend troponin; recommend 2-D echo - Cardiology is consulted and recommendations are pending 2. COVID-19 virus infection - Patient has been placed on COVID-19 vitamin cocktail with vitamin D, vitamin C and zinc sulfate; anticoagulated with IV heparin; we will use albuterol inhaler 4 times a day when necessary - Consult ID for further recommendations on viral treatment 3. COPD; not in exacerbation; continue with home inhaler therapy 4. Hyperlipidemia; patient is currently not on any statin therapy 5. Osteoarthritis; symptomatic treatment 6. Depression; Zoloft 100 mg daily DVT prophylaxis; SCDs/subcu Lovenox CODE STATUS; full code
[2022-08-31] MEDS: HEPARIN SOD,PORK IN 0.45% NACL 25,000 UNIT in 0.45% NACL 1 250ML.BAG IV SCH (17:20)
[2022-09-01 04:49] LABS: Basophils % (A) 0 %; Eosinophils % (A) 0 %; HCT 40.7 % (34.0-46.0); HGB 13.9 gm/dL (11.4-16.0); Lymphocytes # (A) 1.4 k/uL (1.0-4.8); Lymphocytes % (A) 23 %; MCH 31.2 pg (25.0-35.0); MCHC 34.3 g/dL (31.0-37.0); Mean Platelet Volume 8.8; Monocytes # (A) 0.4 k/uL (0-1.0); Monocytes % (A) 7 %; Neutrophils # (A) 4.1 k/uL (1.3-7.7); Neutrophils % (A) 67 %; Platelet Count 196 k/uL (150-450); RBC 4.47 m/uL (3.80-5.40); RDW 12.2 % (11.5-15.5); WBC 6.1 k/uL (3.8-10.6)
[2022-09-01 05:15] LABS: African American GFR (CKD) >90 (>60 ml/min/1.73 sqM); Anion Gap 3 mmol/L; Blood Urea Nitrogen 7 mg/dL (7-17); Calcium 7.9 mg/dL (8.4-10.2); Carbon Dioxide 24 mmol/L (22-30); Chloride 112 mmol/L (98-107); Glucose 92 mg/dL (74-99); Non-African American GFR(CKD) >90 (>60 ml/min/1.73 sqM); Potassium 3.5 mmol/L (3.5-5.1); Sodium 139 mmol/L (137-145)
[2022-09-01] MEDS: SYMBICORT 160-4.5 MCG INHALER INHALATION SCH ×2 (07:46→19:54)
[2022-09-01] MEDS: ALBUTEROL HFA INHALER INHALATION PRN (07:46)
--- NOTE | 2022-09-01 08:04 | P.PN ---
Subjective Progress Note Date: 08/31/22 Principal diagnosis: Covid 19 Patient is a 67-year-old female with a past medical history significant for COPD presenting to the ER for evaluation of not feeling well and sick for about a week since the Barbara in the patient has been complaining of cough mild to moderate intensity, patient has been diagnosed with covid 19 and also have A. fib with RVR chest x-ray was negative for any acute infiltrate. On today's evaluation that is 08/31/2022, the patient denies having any fever or any chills or chills still complaining of some shortness of breath but patient i s not requiring any supplemental oxygen, denies any chest pain some nausea but no vomiting no abdominal pain no diarrhea Objective - Vital Signs Vital signs: Vital Signs Temp 98.3 F 08/31/22 08:00 Pulse 56 L 08/31/22 14:00 Resp 18 08/31/22 14:00 BP 105/57 08/31/22 12:00 Pulse Ox 94 L 08/31/22 12:00 FiO2 Intake & Output 08/30/22 08/31/22 08/31/22 18:59 06:59 18:59 Intake Total 300 Balance 300 Weight 58.967 kg Intake: Intake, IV Titration 60 Amount Heparin Sod,Pork in 0.45% 60 NaCl 25,000 unit In 0.45 % NaCl 1 250ml.bag @ 12 UNITS/KG/HR 7.076 mls/hr IV .Q24H VIBHA Rx#: [id number] Oral 240 Other: # Voids 2 - Exam GENERAL DESCRIPTION: An elderly female lying in bed in no distress RESPIRATORY SYSTEM: Unlabored breathing , decreased breath sounds at bases HEART: S1 S2 regular rate and rhythm , ABDOMEN: Soft , no tenderness EXTREMITIES: No edema feet - Labs CBC & Chem 7: 09/01/22 03:59 09/01/22 03:59 Labs: Abnormal Lab Results - Last 24 Hours (Table) 08/30/22 08/30/22 08/31/22 Range/Units 15:40 19:16 05:05 APTT 46.2 H (22.0-30.0) sec D-Dimer 1.56 H (<0.60) mg/L FEU Sodium 136 L (137-145) mmol/L Chloride 109 H (98-107) mmol/L Creatinine 0.51 L (0.52-1.04) mg/dL Calcium 7.8 L (8.4-10.2) mg/dL Microbiology - Last 24 Hours (Table) 08/30/22 11:24 Blood Culture - Preliminary Blood No Growth after 24 hours 08/30/22 11:10 Blood Culture - Preliminary Blood No Growth after 24 hours Assessment and Plan (1) COVID-19 Current Visit: Yes Status: Acute Code(s): U07.1 - COVID-19 SNOMED Code(s): 148156397 Plan: 1patient with the hospital not feeling well shortness of breath and cough symptom has been going on for about a week likely multifactorial in this patient has been diagnosed with COVID-19 also with A. fib with RVR likely contribute to some of her symptoms, as far as the COVID the patient is currently not hypoxic or need for supplemental oxygen chest x-ray did not show any acute findings treatment will be mostly supportive. 2patient to continue with Heparin for underlying A. fib along with zinc and ascorbic acid. 3no need for steroids or remdesivir. 4droplet isolation Time with Patient: Less than 30
[2022-09-01] MEDS: CHOLECALCIFEROL 25 MCG (1000 IU) TABLET PO SCH (09:39)
[2022-09-01] MEDS: ASCORBIC ACID 500 MG TAB PO SCH (09:40)
[2022-09-01] MEDS: SERTRALINE 100 MG TAB PO SCH (09:40)
[2022-09-01] MEDS: ZINC SULFATE 220 MG CAP PO SCH (09:40)
--- NOTE | 2022-09-01 10:29 | P.PN ---
Subjective From our records 67-year-old female presents emergency Department chief complaint of being sick for 1 week. Patient states she has worked up for cough with phlegm. Patient states that she's had no improvement. Patient is having mild nasal congestion. Patient does admit to nausea without vomiting. Patient states she does feel weak. Patient states she has some tightness in her neck. Denies chest pain. Patient does feel short of breath. Patient does have a history of COPD. on arrival to the ER the patient was afebrile and no fever have recorded subsequently patient is currently satting 96% room air patient did have a normal white count kidney function has been normal liver exams mildly elevated COVID test came back positive influenza RSV was negative patient did have a chest x- ray chronic changes without acute pulmonary process no significant change from prior patient also diagnosed with A. fib and has been started on heparin per weight-based protocol -- Patient has been evaluated by ID; patient doesn't have any symptoms of Covid 19 infection doesn't qualify for any treatment Cardiology on board; has converted spontaneously to normal sinus rhythm; cardiology recommending to continue with IV heparin infusion for another 24 hours --- Possible discharge in next 24-48 hours once cleared by ID and cardiology 09/01/2022 Patient today he looks very tired, she is lethargic, she's at basic mentation, her breathing is okay but she feels very sick and malaise with decrease appetite and feeling cold She developed low-grade fever of 100.7 today. She is mildly hypertensive and bradycardic, she is on normal saline 75 mL/h Labs look fine She denies any diarrhea or other GI symptoms other than low appetite Also she is kept on heparin drip for the new A. fib with cartilage followed closely Objective - Vital Signs Vital signs: Vital Signs Temp 98.0 F 09/01/22 04:00 Pulse 56 L 09/01/22 04:00 Resp 18 09/01/22 04:00 BP 99/61 09/01/22 04:00 Pulse Ox 97 09/01/22 04:00 FiO2 Intake & Output 08/31/22 09/01/22 09/01/22 18:59 06:59 18:59 Intake Total 974.708 111.565 Balance 974.708 111.565 Intake: Intake, IV Titration 254.708 111.565 Amount Heparin Sod,Pork in 0.45% 254.708 111.565 NaCl 25,000 unit In 0.45 % NaCl 1 250ml.bag @ 12 UNITS/KG/HR 7.076 mls/hr IV .Q24H [facility] Rx#: [id number] Oral 720 Other: # Voids 2 1 - Exam -GENERAL: The patient is alert and oriented x3, not in any acute distress. Well developed, well nourished. Fatigue, malaise HEENT: Pupils are round and equally reacting to light. EOMI. No scleral icterus. No conjunctival pallor. Normocephalic, atraumatic. No pharyngeal erythema. No thyromegaly. CARDIOVASCULAR: S1 and S2 present. No murmurs, rubs, or gallops. PULMONARY: Chest is clear to auscultation, no wheezing or crackles. ABDOMEN: Soft, nontender, nondistended, normoactive bowel sounds. No palpable organomegaly. MUSCULOSKELETAL: No joint swelling or deformity. EXTREMITIES: No cyanosis, clubbing, or pedal edema. NEUROLOGICAL: Gross neurological examination did not reveal any focal deficits. SKIN: No rashes. no petechiae. - Labs CBC & Chem 7: 09/01/22 03:59 09/01/22 03:59 Labs: Abnormal Lab Results - Last 24 Hours (Table) 08/31/22 09/01/22 09/01/22 Range/Units 18:49 03:59 03:59 APTT 34.6 H 41.9 H (22.0-30.0) sec Chloride 112 H (98-107) mmol/L Calcium 7.9 L (8.4-10.2) mg/dL Microbiology - Last 24 Hours (Table) 08/30/22 11:24 Blood Culture - Preliminary Blood No Growth after 24 hours 08/30/22 11:10 Blood Culture - Preliminary Blood No Growth after 24 hours Assessment and Plan Assessment: 1. New onset atrial fibrillation - Patient is currently rate controlled; has been placed on IV heparin per protocol - We will monitor EKG and trend troponin; recommend 2-D echo: Ejection fraction 55% - Cardiology team on the case 2. COVID-19 virus infection - Patient has been placed on COVID-19 vitamin cocktail with vitamin D, vitamin C and zinc sulfate; anticoagulated with IV heparin; we will use albuterol inhaler 4 times a day when necessary. No need for steroids or remdisivire per ID TEAM - Consult ID for further recommendations on viral treatment 3. COPD; not in exacerbation; continue with home inhaler therapy 4. Hyperlipidemia; patient is currently not on any statin therapy 5. Osteoarthritis; symptomatic treatment 6. Depression; Zoloft 100 mg daily DVT prophylaxis; heparin drip GI prophylaxis: Pepcid CODE STATUS; full code
[2022-09-01] MEDS: AMOXIC-POT CLAV 875-125MG 1 EACH TAB PO SCH ×2 (12:13→20:57)
[2022-09-01] MEDS: FAMOTIDINE 20 MG/2 ML VIAL IV SCH ×2 (12:13→20:56)
[2022-09-01] MEDS: SODIUM CHLORIDE 0.9% 1,000 ML IV SCH ×2 (13:00→21:30)
--- NOTE | 2022-09-01 15:21 | P.PN ---
Subjective Progress Note Date: 09/01/22 Principal diagnosis: Covid 19 Patient is a 67-year-old female with a past medical history significant for COPD presenting to the ER for evaluation of not feeling well and sick for about a week since the Barbara in the patient has been complaining of cough mild to moderate intensity, patient has been diagnosed with covid 19 and also have A. fib with RVR chest x-ray was negative for any acute infiltrate. On today's evaluation that is 09/01/2022, the patient remains to be afebrile, the patient his previous study comfortably currently on room air, mostly shortness of breath on exertion no worsening cough or sputum production no abdominal pain no diarrhea Objective - Vital Signs Vital signs: Vital Signs Temp 98.8 F 09/01/22 12:00 Pulse 63 09/01/22 12:00 Resp 18 09/01/22 12:00 BP 111/63 09/01/22 12:00 Pulse Ox 95 09/01/22 12:00 FiO2 Intake & Output 08/31/22 09/01/22 09/01/22 18:59 06:59 18:59 Intake Total 974.708 111.565 57.471 Balance 974.708 111.565 57.471 Intake: Intake, IV Titration 254.708 111.565 57.471 Amount Heparin Sod,Pork in 0.45% 254.708 111.565 57.471 NaCl 25,000 unit In 0.45 % NaCl 1 250ml.bag @ 12 UNITS/KG/HR 7.076 mls/hr IV .Q24H [facility] Rx#: [id number] Oral 720 Other: # Voids 2 1 - Exam GENERAL DESCRIPTION: An elderly female lying in bed in no distress RESPIRATORY SYSTEM: Unlabored breathing , decreased breath sounds at bases HEART: S1 S2 regular rate and rhythm , ABDOMEN: Soft , no tenderness EXTREMITIES: No edema feet - Labs CBC & Chem 7: 09/01/22 03:59 09/01/22 03:59 Labs: Abnormal Lab Results - Last 24 Hours (Table) 08/31/22 09/01/22 09/01/22 Range/Units 18:49 03:59 03:59 APTT 34.6 H 41.9 H (22.0-30.0) sec Chloride 112 H (98-107) mmol/L Calcium 7.9 L (8.4-10.2) mg/dL Microbiology - Last 24 Hours (Table) 08/30/22 11:24 Blood Culture - Preliminary Blood No Growth after 24 hours 08/30/22 11:10 Blood Culture - Preliminary Blood No Growth after 24 hours Assessment and Plan (1) COVID-19 Current Visit: Yes Status: Acute Code(s): U07.1 - COVID-19 SNOMED Code(s): 700192819 Plan: 1patient with the hospital not feeling well shortness of breath and cough symptom has been going on for about a week likely multifactorial in this patient has been diagnosed with COVID-19 also with A. fib with RVR likely contribute to some of her symptoms, as far as the COVID the patient is currently not hypoxic or need for supplemental oxygen chest x-ray did not show any acute findings treatment is mostly supportive. 2patient to continue with Heparin for underlying A. fib along with zinc and ascorbic acid and monitor clinical course closely. Time with Patient: Less than 30
[2022-09-01] MEDS: HEPARIN SOD,PORK IN 0.45% NACL 25,000 UNIT in 0.45% NACL 1 250ML.BAG IV SCH ×2 (20:13→23:30)
[2022-09-02] MEDS: SYMBICORT 160-4.5 MCG INHALER INHALATION SCH (08:06)
[2022-09-02] MEDS: ALBUTEROL HFA INHALER INHALATION PRN (08:06)
[2022-09-02] MEDS ORDERED: FAMOTIDINE 20 MG TAB PO SCH (09:00)
[2022-09-02] MEDS: CHOLECALCIFEROL 25 MCG (1000 IU) TABLET PO SCH (09:19)
[2022-09-02] MEDS: AMOXIC-POT CLAV 875-125MG 1 EACH TAB PO SCH (09:19)
[2022-09-02] MEDS: ZINC SULFATE 220 MG CAP PO SCH (09:19)
[2022-09-02] MEDS: SERTRALINE 100 MG TAB PO SCH (09:19)
[2022-09-02] MEDS: ASCORBIC ACID 500 MG TAB PO SCH (09:19)
[2022-09-02] MEDS: SODIUM CHLORIDE 0.9% 1,000 ML IV SCH (09:20)
[2022-09-02 10:36] VITALS: RESP 16
[2022-09-02 12:55] VITALS: BP 100/57; PULSE 52; TEMP 98.6
--- NOTE | 2022-09-02 18:28 | P.DS ---
Providers Date of admission: 08/30/22 13:41 Expected date of discharge: 09/02/22 Attending physician: Yogesh Burgess MD Consults: 08/30/22 13:43 Consult Physician Urgent Consulting Provider: Venkat Clemons Consult Reason/Comments: new onset afib Do you want consulting provider notified?: Yes 08/30/22 14:38 Consult Physician Routine Consulting Provider: Marv Ojeda Consult Reason/Comments: COVID 19 infection Do you want consulting provider notified?: Yes Primary care physician: [facility] Course: 67-year-old female presents emergency Department chief complaint of being sick for 1 week. Patient states she has worked up for cough with phlegm. Patient states that she's had no improvement. Patient is having mild nasal congestion. Patient does admit to nausea without vomiting. Patient states she does feel weak. Patient states she has some tightness in her neck. Denies chest pain. Patient does feel short of breath. Patient does have a history of COPD. on arrival to the ER the patient was afebrile and no fever have recorded subsequently patient is currently satting 96% room air patient did have a normal white count kidney function has been normal liver exams mildly elevated COVID test came back positive influenza RSV was negative patient did have a chest x- ray chronic changes without acute pulmonary process no significant change from prior patient also diagnosed with A. fib and has been started on heparin per weight-based protocol 1. New onset atrial fibrillation - Patient is currently rate controlled; has been placed on IV heparin per protocol - We will monitor EKG and trend troponin; recommend 2-D echo - Cardiology is consulted and recommendations are pending 2. COVID-19 virus infection - Patient has been placed on COVID-19 vitamin cocktail with vitamin D, vitamin C and zinc sulfate; anticoagulated with IV heparin; we will use albuterol inhaler 4 times a day when necessary - Consult ID for further recommendations on viral treatment 3. COPD; not in exacerbation; continue with home inhaler therapy 4. Hyperlipidemia; patient is currently not on any statin therapy 5. Osteoarthritis; symptomatic treatment 6. Depression; Zoloft 100 mg daily 09/01/2022 Patient today he looks very tired, she is lethargic, she's at basic mentation, her breathing is okay but she feels very sick and malaise with decrease appetite and feeling cold She developed low-grade fever of 100.7 today. She is mildly hypertensive and bradycardic, she is on normal saline 75 mL/h Labs look fine She denies any diarrhea or other GI symptoms other than low appetite Also she is kept on heparin drip for the new A. fib with cartilage followed closely Patient is stable and cleared for discharge Patient Condition at Discharge: Fair Plan - Discharge Summary New Discharge Prescriptions: New Zinc Sulfate [Orazinc] 220 mg PO DAILY 30 Days #30 cap Famotidine [Pepcid] 20 mg PO BID tab Ascorbic Acid [Vitamin C] 500 mg PO DAILY tab Cholecalciferol [Vitamin D3 (25 Mcg = 1000 Iu)] 50 mcg PO DAILY 30 Days #30 tab Continue Budesonide/Formoterol Fumarate [Symbicort 160-4.5 Mcg Inhaler] 2 puff INHALATION RT-BID Sertraline [Zoloft] 100 mg PO DAILY Amoxic-Pot Clav 875-125Mg [Augmentin 875-125] 1 tab PO Q12H Albuterol Inhaler [Ventolin Hfa Inhaler] 1 puff INHALATION RT-Q4H PRN PRN Reason: Shortness Of Breath Discharge Medication List Albuterol Inhaler [Ventolin Hfa Inhaler] 1 puff INHALATION RT-Q4H PRN 08/30/22 [History] Amoxic-Pot Clav 875-125Mg [Augmentin 875-125] 1 tab PO Q12H 08/30/22 [History] Budesonide/Formoterol Fumarate [Symbicort 160-4.5 Mcg Inhaler] 2 puff INHALATION RT-BID 08/30/22 [History] Sertraline [Zoloft] 100 mg PO DAILY 08/30/22 [History] Ascorbic Acid [Vitamin C] 500 mg PO DAILY tab 09/02/22 [Rx] Cholecalciferol [Vitamin D3 (25 Mcg = 1000 Iu)] 50 mcg PO DAILY 30 Days #30 tab 09/02/22 [Rx] Famotidine [Pepcid] 20 mg PO BID tab 09/02/22 [Rx] Zinc Sulfate [Orazinc] 220 mg PO DAILY 30 Days #30 cap 09/02/22 [Rx] Follow up Appointment(s)/Referral(s): Pj Alcocer III, MD [Primary Care Provider] - 1-2 days (please call the office to make an appiontment) Patient Instructions/Handouts: Dehydration (DC), Hypotension (DC), COVID-19 (Coronavirus Disease 2019) (DC) Discharge Disposition: HOME SELF-CARE
--- NOTE | 2022-09-02 22:21 | P.PN ---
Subjective Progress Note Date: 09/02/22 Principal diagnosis: Covid 19 Patient is a 67-year-old female with a past medical history significant for COPD presenting to the ER for evaluation of not feeling well and sick for about a week since the Barbara in the patient has been complaining of cough mild to moderate intensity, patient has been diagnosed with covid 19 and also have A. fib with RVR chest x-ray was negative for any acute infiltrate. On today's evaluation that is 09/02/2022, the patient continues to be afebrile, the patient is breathing comfortably on room air, the patient denies having any chest pain and cough and decreased intensity mostly dry in nature no nausea no vomiting and abdominal pain no diarrhea overall feeling better Objective - Vital Signs Vital signs: Vital Signs Temp 97.3 F L 09/02/22 04:00 Pulse 53 L 09/02/22 08:10 Resp 16 09/02/22 08:10 BP 89/51 09/02/22 08:10 Pulse Ox 95 09/02/22 08:10 FiO2 Intake & Output 09/01/22 09/02/22 09/02/22 18:59 06:59 18:59 Intake Total 88.842 54.340 Output Total 240 Balance -151.158 54.340 Intake: Intake, IV Titration 88.842 54.340 Amount Heparin Sod,Pork in 0.45% 88.842 54.340 NaCl 25,000 unit In 0.45 % NaCl 1 250ml.bag @ 12 UNITS/KG/HR 7.076 mls/hr IV .Q24H [facility] Rx#: [id number] Output: Urine 240 Other: Voiding Method Toilet # Voids 3 # Bowel Movements 0 - Exam GENERAL DESCRIPTION: An elderly female lying in bed in no distress RESPIRATORY SYSTEM: Unlabored breathing , decreased breath sounds at bases HEART: S1 S2 regular rate and rhythm , ABDOMEN: Soft , no tenderness EXTREMITIES: No edema feet - Labs CBC & Chem 7: 09/01/22 03:59 09/01/22 03:59 Labs: Abnormal Lab Results - Last 24 Hours (Table) 09/01/22 09/01/22 09/02/22 Range/Units 12:25 22:55 06:55 APTT 41.8 H 72.3 H 67.5 H (22.0-30.0) sec Microbiology - Last 24 Hours (Table) 08/30/22 11:10 Blood Culture - Preliminary Blood No Growth after 48 hours 08/30/22 11:24 Blood Culture - Preliminary Blood No Growth after 48 hours Assessment and Plan (1) COVID-19 Status: Acute Code(s): U07.1 - COVID-19 SNOMED Code(s): 638452033 Plan: 1patient with the hospital not feeling well shortness of breath and cough symptom has been going on for about a week likely multifactorial in this patient has been diagnosed with COVID-19 also with A. fib with RVR likely contribute to some of her symptoms, as far as the COVID the patient is currently not hypoxic or need for supplemental oxygen chest x-ray did not show any acute findings treatment is mostly supportive. 2patient seem to have shown clinical improvement and continue with current supportive treatment of zinc and ascorbic acid , no need for any steroids or antiviral on discharge Time with Patient: Less than 30
== END 2022-09-02 14:09 | disposition home or self-care (01) | DRG 178 ==
LOC: EC 10:51 → 3SCARD 13:41 → 1SOBS 08-31 09:27 → 3SCARD 08-31 18:43
PROVIDERS: ADMIT Internal Medicine; ATTEND Internal Medicine
DX: U07.1 COVID-19 (principal); J44.0 Chronic obstructive pulmonary disease with (acute) lower respiratory infection; I48.0 Paroxysmal atrial fibrillation; M19.90 Unspecified osteoarthritis, unspecified site; E78.5 Hyperlipidemia, unspecified; F32.A Depression, unspecified; F17.210 Nicotine dependence, cigarettes, uncomplicated; I08.1 Rheumatic disorders of both mitral and tricuspid valves; Z79.899 Other long term (current) drug therapy; Z88.5 Allergy status to narcotic agent; Z90.49 Acquired absence of other specified parts of digestive tract; Z87.19 Personal history of other diseases of the digestive system; Z90.710 Acquired absence of both cervix and uterus; Z96.641 Presence of right artificial hip joint; Z79.51 Long term (current) use of inhaled steroids
CPT/HCPCS: 36415; 71046; 80048; 80053; 83605; 83735; 84484; 85025; 85379; 85610; 85730; 87040; 87636; 93005; 93306; 94640; 96361; 96365; 96366; 99291

== ENCOUNTER → 2022-11-15 | Outpatient (CLI) | payer MEDICARE, OTHER ==
--- NOTE | 2022-11-15 10:12 | CTL ---
EXAMINATION TYPE: CT Low Dose Lung DATE OF EXAM ORDERED: 11/15/2022 HISTORY: . Lung cancer screening CT DLP: 73.[address] CTDI: 1.9 mGy Automated exposure control for dose reduction was used. SCREENING VISIT: COMPARISON: TECHNIQUE: Low dose computed tomography scan was performed through the chest at 1 mm thick sections a nd reconstructed images in multiple planes at 1 mm and [address] DIAGNOSTIC QUALITY: Satisfactory FINDINGS: There is biapical pleural thickening. Mild centrilobular emphysematous changes. There is a 2 mm subpleural nodule axial image 63 left upper lobe. There are additional 1 to 2 mm subp leural nodules seen in the right upper lobe. There is a 5 mm nodule seen along the fissure within the superior segment of the right lower lobe axial image 105 there is a irregular nodule seen within the superior segment left lower lobe measuring 1.26 cm. Image 167 and 168. There is no evidence of consolidative pneumonia pleural effusion. Subsegmental changes at both lung b ases most typical of scarring or atelectasis. No pleural effusion or pneumothorax. There is a large calcification spleen could be on the basis of prior splenic injury or calcified sple pawel cyst. There is a small hiatal hernia and the heart size is normal. No significant coronary artery calcification. Hypertrophic and degenerative changes of the spine. Sclerosis involving a mid thoraci c segment is nonspecific Noncontrast technique demonstrates no definite pathologic adenopathy. IMPRESSION: 1. Mild to moderate COPD with a 1.2 cm superior segment left lower lobe lung mass suspicious for tita gnancy. No evidence of adenopathy. 2. Additional 5 mm or less pulmonary nodules too small to characterize. 3. Nonspecific sclerosis within a mid thoracic vertebral segment. CT LUNG RAD AND CT CHEST RECOMMENDATION: Lung-Rad 4B or 4X Very Suspicious: Follow-up PET/CT recommen ded.
== END | disposition home or self-care (01) ==
LOC: RADCTMAIN 06:58
PROVIDERS: ATTEND Family Medicine
DX: Z12.2 Encounter for screening for malignant neoplasm of respiratory organs (principal); F17.210 Nicotine dependence, cigarettes, uncomplicated; J44.9 Chronic obstructive pulmonary disease, unspecified; G95.89 Other specified diseases of spinal cord; R91.8 Other nonspecific abnormal finding of lung field
CPT/HCPCS: 71271

== ENCOUNTER → 2022-11-24 | Outpatient (CLI) | payer MEDICARE, OTHER ==
--- NOTE | 2022-11-25 11:33 | CT ---
EXAMINATION TYPE: CT chest w con CT DLP: 313.5 mGycm, Automated exposure control for dose reduction was used. DATE OF EXAM: 11/24/2022 7:05 PM COMPARISON: CT chest 11/15/2022 CLINICAL INDICATION:Female, 67 years old with history of R91.8 OTHER NONSPECIFIC ABNORMAL FINDING OF LUNG F; PHH, Abnormality found on left lower lung. TECHNIQUE: Multiple axial images were obtained through the chest. Sagittal and coronal reformats were created for review. Contrast used:100cc mL of Isovue 300 with IV Contrast Oral contrast used: none. FINDINGS: LUNGS/ PLEURA: Centrilobular emphysema changes are seen throughout the lungs. Left lower lobe superio r segment pulmonary nodule next to the fissure measuring 1.4 x 1.3 x 0.8 cm which is not significantl y changed when measuring similarly. Scattered air cysts are present throughout the lungs. No addition al suspicious pulmonary nodules. No focal consolidation, pneumothorax or pleural effusion. Right intrafissural lymph node along the major fissure on the right AIRWAY: Patent and unremarkable. No bronchiectasis or bronchial wall thickening. HEART: Size within normal limits. MEDIASTINUM: No gross evidence of adenopathy. VASCULATURE: No aortic aneurysm. No central pulmonary arterial vasculature filling defect to suggest pulmonary embolus. MUSCULOSKELETAL: Moderate disc degeneration changes are present throughout the thoracolumbar spine. SOFT TISSUES/LYMPH NODES: Unremarkable. LOWER NECK: Left thyroid nodule measuring 2.1 x 1.2. UPPER ABDOMEN: Suspected pseudocyst with peripheral desiccation within the spleen. IMPRESSION: 1. Moderate emphysema with a 1.4 cm superior segment left lower lobe lung mass suspicious for maligna ncy. No evidence of adenopathy. Recommendation remains from prior on 11/15/2022 for PET/CT. 2. Additional 5 mm or less pulmonary nodules too small to characterize. 3. Left thyroid nodule which can be further evaluated with ultrasound if clinically warranted.
== END | disposition home or self-care (01) ==
LOC: RADCTMAIN 17:47
PROVIDERS: ATTEND Family Medicine
DX: J43.2 Centrilobular emphysema (principal); E04.1 Nontoxic single thyroid nodule; D14.2 Benign neoplasm of trachea; D38.1 Neoplasm of uncertain behavior of trachea, bronchus and lung; R91.8 Other nonspecific abnormal finding of lung field
CPT/HCPCS: 82565; 84520; 71260; 36415; Q9967

== ENCOUNTER 2022-11-30 07:52 | Day surgery (SDC) | payer MEDICARE, OTHER ==
[2022-11-25 15:32] VITALS: BMI 26.3
[~2022-11-30 07:52] MED LIST changes: +LIDOCAINE 1% (10MG/ML) FOR IV START INTRADERMA PRN
[2022-11-30 08:24] VITALS: TEMP 98.4
[2022-11-30] MEDS ORDERED: PROPOFOL 10 MG/ML 20 ML VIAL IV ONE (09:34)
[2022-11-30] MEDS ORDERED: SODIUM CHLORIDE 0.9% 500 ML 500 ML IV ONE ×2 (10:03)
--- NOTE | 2022-11-30 10:06 | P.PCN ---
Date of Procedure: 11/30/22 Procedure(s) Performed: Brief history: Patient is a pleasant s 67-year-old white female scheduled for an elective upper endoscopy as well as colonoscopy as a part of evaluation of GERD and screening for colon cancer Procedure performed: Esophagogastroduodenoscopy with biopsy Colonoscopy Preoperative diagnosis: GERD Screening for colon cancer [place] [facility] [place]: After informed consent was obtained from the patient was brought into the endoscopy unit and IV sedation was administered by anesthesia under continuous monitoring. Initially upper endoscopy was done. The Olympus GF 160 video endoscope was inserted inserted into the mouth and esophagus intubated without any difficulty and was gradually advanced into the stomach and duodenum and carefully examined. The bulb of the duodenum had mild duodenitis with patchy areas of erythema notedand second part of the duodenum appeared normal. The scope was then withdrawn into the stomach adequately insufflated with air and upon careful examination the michael linear areas of erythema consistent with gastritis and biopsies were done from this area. Mucosa of thebody, cardia and fundus appeared normal. The scope was then withdrawn into the esophagus. The GE junction was located at 40 cm to the incisors. It appeared regular with no erythema erosions or ulcerations. Rest of the esophagus appeared normal. Patient tolerated the procedure well. At this time the patient continued to remain sedation. Initial digital rectal examination was normal. Olympus CF 160 video pediatric colonoscope was then inserted into the rectum and gradually advanced to the cecum with severe difficulty. Careful examination was performed as the scope was gradually being withdrawn. The prep was excellent. The cecum, ascending colon, transverse colon, descending colon, sigmoid colon and rectum appeared normal. Retroflexion was performed in the rectum and no lesions were noted. Patient tolerated the procedure well. Impression: 1. Upper endoscopy revealed mild antral gastritis and duodenitis but no evidence of peptic ulcer disease 2. Colonoscopy revealed scattered sigmoid diverticulosis but no evidence of colorectal neoplasia Recommendations: Findings of this examination were discussed with the patient as well as her family. She was advised to follow with the biopsy results. She was advised to have a repeat screening colonoscopy in 10 years.
[2022-11-30 10:40] VITALS: BP 105/68; PULSE 55; RESP 17
== END 2022-11-30 10:45 | disposition home or self-care (01) ==
LOC: ORWHC2ENDO 07:52
PROVIDERS: ATTEND Internal Medicine Gastroenterology
DX: Z12.11 Encounter for screening for malignant neoplasm of colon (principal); K57.30 Diverticulosis of large intestine without perforation or abscess without bleeding; K29.90 Gastroduodenitis, unspecified, without bleeding; K21.9 Gastro-esophageal reflux disease without esophagitis; J44.9 Chronic obstructive pulmonary disease, unspecified; G47.33 Obstructive sleep apnea (adult) (pediatric); Z99.89 Dependence on other enabling machines and devices; R91.8 Other nonspecific abnormal finding of lung field; F32.A Depression, unspecified; Z79.51 Long term (current) use of inhaled steroids; Z79.82 Long term (current) use of aspirin; Z79.899 Other long term (current) drug therapy; Z87.448 Personal history of other diseases of urinary system
CPT/HCPCS: 88305; 43239; J2704; G0121

== ENCOUNTER → 2022-12-05 | Outpatient (CLI) | payer MEDICARE, OTHER ==
--- NOTE | 2022-12-05 13:21 | BD ---
EXAMINATION TYPE: Axial Bone Density DATE OF EXAM: 12/05/2022 CLINICAL HISTORY: 67 years old Female. ICD-10 CODE: Z78.0 MENOPAUSAL STATE Height: 66 Weight: 156.4 FRAX RISK QUESTIONS: Alcohol (3 or more units per day): no Family History (Parent hip fracture): no Glucocorticoids (More than 3mos): no (Ex: prednisone, prednisolone, methylprednisolone, dexamethasone, and hydrocortisone). History of Fracture in Adulthood: yes Secondary Osteoporosis: 1. Type 1 Diabetes: no 2. Hyperthyroidism: no 3. Menopause before 45: yes 4. Malnutrition: no 5. Chronic liver disease: no Rheumatoid Arthritis: no Current Tobacco Use: no RISK FACTORS HISTORY OF: Surgery to Spine/Hip(right/left)/Wrist (right/left): yes/ bilateral hip surgery's Family History of Osteoporosis: no Active: no Diet low in dairy products/other sources of calcium: yes Postmenopausal woman: yes Lost more than 2 inches in height since high school: no MEDICATIONS: Additional History: EXAM MEASUREMENTS: Bone mineral densitometry was performed using the [employer]cron System. Bone mineral density as measured about the Lumbar spine is: ----- L1-L4(G/cm2): 1.366 T Score Values are as follows: ----- L1: 1.8 ----- L2: 1.7 ----- L3: 2.1 ----- L4: 0.5 ----- L1-L4: 1.5 Z Score Values are as follows: ----- L1: 3.2 ----- L2: 3.1 ----- L3: 3.5 ----- L4: 1.9 ----- L1-L4: 2.9 Bone mineral density : baseline Bone mineral density about the L Wrist (g/cm2): 0.626 T Score values are as follows: -----Dist. R+U: -2.1 -----Prox. R+U: -0.6 -----Radius total: -0.8 Z Score values are as follows: -----Dist. R+U: -0.7 -----Prox. R+U: 0.8 -----Radius total: 0.6 Bone mineral density : baseline IMPRESSION: Osteopenia (T Score between -2.5 and -1). There is slightly increased risk of fracture and the patient may be considered for treatment. Re-Screen 2-5 years. NOTE: T-SCORE=SD OF THE YOUNG ADULT MEAN.
== END | disposition home or self-care (01) ==
LOC: RADBDWWP 08:09
PROVIDERS: ATTEND Family Medicine
DX: Z13.820 Encounter for screening for osteoporosis (principal); M85.851 Other specified disorders of bone density and structure, right thigh; Z78.0 Asymptomatic menopausal state
CPT/HCPCS: 77080

== ENCOUNTER → 2022-12-10 | Outpatient (CLI) | payer MEDICARE, OTHER ==
--- NOTE | 2022-12-12 08:19 | PE ---
EXAMINATION TYPE: PET CT fusion whole body DATE OF EXAM: 12/10/2022 COMPARISON: Chest CT November 24, 2022 HISTORY: Solitary pulmonary nodule, abnormal CT. TECHNIQUE: Following the intravenous administration of 11.5 mCi of F-18 FDG, whole body images are p erformed from the skull base to the midthigh. Images are reviewed on the computer in the coronal, ax ial, and sagittal planes. Reconstructed rotating images are created on independent workstation and r eviewed on the computer. A localization and attenuation correction CT is performed in conjunction w ith the PET scan. Blood glucose level equals 106 SCAN: Initial Scan FINDINGS: SKULL BASE AND NECK: No areas of abnormal hypermetabolic uptake. CHEST, MEDIASTINUM, AND HILAR REGION: Mild to moderate underlying emphysematous changes redemonstrate d. Persistent spiculated nodule measuring 1.7 x 1.3 cm axial image 89 with abnormal hypermetabolic up take, max SUV is 4.21. No additional areas of abnormal hypermetabolic uptake in the thorax including mediastinum and left hilar region. ABDOMEN AND PELVIS: No adrenal masses. Normal excretion. No areas of abnormal hypermetabolic uptake. OSSEOUS STRUCTURES: No areas of abnormal hypermetabolic uptake. OTHER CT: Persistent posterior roughly 2.0 cm left thyroid nodule axial image 58. Metallic hardware f rom bilateral hip arthroplasty causes streak artifact limiting evaluation of pelvic structures. IMPRESSION: Left mid lung pulmonary nodule has abnormal hypermetabolic uptake, neoplasm cannot be exc luded. No suspicious adenopathy or metastatic disease seen.
== END | disposition home or self-care (01) ==
LOC: RADPETMAIN 07:04
PROVIDERS: ATTEND Internal Medicine Critical Care Medicine
DX: R91.1 Solitary pulmonary nodule (principal)
CPT/HCPCS: 78816; A9552

== ENCOUNTER → 2022-12-29 | Day surgery (SDC) | payer MEDICARE, OTHER ==
[~2022-12-29] MED LIST changes: +GLYCOPYRROLATE 0.2 MG/ML 2 ML VIAL ONE; +KETAMINE 10 MG/ML 20 ML VIAL ONE; -LIDOCAINE 1% (10MG/ML) FOR IV START INTRADERMA PRN; +MIDAZOLAM 2 MG/2 ML VIAL ONE; +NEOSTIGMINE 1 MG/ML 10 ML VIAL ONE; +PHENYLEPHRINE-0.9% NACL SYG 1,000 MCG/10 ML SYRINGE ONE; +PROPOFOL 10 MG/ML 20 ML VIAL IV ONE; +ROCURONIUM 10 MG/ML (5 ML VIAL) IV ONE; +SODIUM CHLORIDE 0.9% 500 ML 500 ML IV ONE; +fentaNYL (PF) 50 MCG/ML 2 ML AMP ONE
--- NOTE | 2022-12-29 12:58 | CT ---
EXAMINATION TYPE: CT chest wo con CT DLP: 205.9 mGycm, Automated exposure control for dose reduction was used. DATE OF EXAM: 12/29/2022 12:37 PM COMPARISON: 11/24/2022 PET/CT 12/12/2022 CLINICAL INDICATION:Female, 67 years old with history of bronchoscopy with ion robot; , Ion bronchosc opy. TECHNIQUE: Multiple axial images were obtained through the chest. Sagittal and coronal reformats were created for review. Contrast used: None Oral contrast used: none. FINDINGS: LUNGS/ PLEURA: Moderate centrilobular emphysema changes throughout the lungs. 3 mm right middle lobe pulmonary nodule series 3 image 216. Right major fissure lymph node series 3 image 104. Left lower lo be air cyst with peripheral nodule nodule measuring 4 mm series 3 image 237. Left lower lobe spiculated pulmonary nodule measuring 17 x 13 mm series 3 image 161. Which appears fr actionally larger than prior. Measuring 16 x 13 mm AIRWAY: Patent and unremarkable. HEART: Size within normal limits. MEDIASTINUM: r right low paratracheal lymph node measuring 7 mm in short axis. VASCULATURE: No aortic aneurysm. MUSCULOSKELETAL: No acute osseous abnormalities SOFT TISSUES/LYMPH NODES: Unremarkable. LOWER NECK: Left posterior inferior exophytic thyroid nodule measuring up to 19 mm UPPER ABDOMEN: Peripherally calcified probable pseudocyst within the spleen. IMPRESSION: Left lower lobe spiculated pulmonary nodule suspicious for malignancy. This may be fractionally large r than prior. Prominent nonenlarged by CT criteria lymph nodes throughout the mediastinum.
--- NOTE | 2022-12-29 16:08 | P.PCN ---
Date of Procedure: 12/29/22 Operative Findings: Preoperative Diagnosis: Left lower lobe mass Postoperative Diagnosis: Left lower lobe mass Mediastinal lymphadenopathy Procedure(s) Performed: Flexible bronchoscopy Robotic-assisted bronchoscopy and addition to radial ultrasound evaluation of the lung mass Robotic-assisted test monitor needle aspirate, transbronchial biopsies, transbronchial brushing of the left lower lobe mass in addition to a bronchio loalveolar lavage Endobronchial ultrasound Endobronchial ultrasound-guided transbronchial needle aspirate of station 7 lymph nodes Anesthesia: JONATHANA Surgeon: Josue Caldera Estimated Blood Loss (ml): 0 Pathology: other Condition: stable Disposition: same day Operative Findings: A physical exam was performed. Informed consent was obtained from the patient after explaining all the risks (pneumothorax, life threatening bleeding, infection and adverse effects due to medications), benefits and alternatives to the procedure which the patient appeared to understand and so stated. The patient was connected to the monitoring devices. General anesthesia was induced and the patient was intubated by anesthesia. A final timeout was performed and the procedure confirmed by the attending staff bronchoscopist. The bronchoscope was inserted and the airway examined. The flexible bronchoscope was removed and the robotic bronchoscope was inserted. Registration was completed. I next guided the robotic bronchoscope using the navigation system into the left lower lobe lateral segment segment. Once in proper position, the bronchoscope was frozen. The radial EBUS probe was placed through the bronchoscope and confirmed abnormal u/s images vs normal lung. A needle was placed through the working channel and under fluoroscopic guidance, we sampled the area thought to have the mass twice. We then used a cloud biopsy pattern with ultrasound confirmation for 4 additional passes with the needle. U/S evaluation was then used to reconfirm location. Forceps were next introduced through working channel and extended the appropriate distance and 3 transbronchial biopsies were performed using fluoroscopic guidance. The u/s probe was then reinserted to confirm location. When confirmed this process was repeated for a total of 5 transbronchial biopsies. After reassessment with EBUS, a brush was placed through the extendable working channel for 1 pass with fluoroscopic guidance. U/S evaluation was then used to confirm location. 20ml of saline was then instilled into the area of the lesion. The robotic bronchoscope was removed and the airway inspected with a flexible bronchoscope and 10 ml of effluent from the BAL was collected. The flexible bronchoscope was removed and the EBUS-TBNA bronchoscope was used to intubate the pateint through the ETT. An ultrasound examination identified all major landmarks was completed.. The EBUS-TBNA scope was used to evaluate station 7 lymph node. The lymph node was identified via ultrasound and the shortest diameter was measured to be 10 x 7.8 mm. The corresponding available CT scan measurement was compared to EBUS image. The needle was then inserted and 3 passes were taken under direct ultrasonographic visualization. Each pass was maintained with good suction. The patient was then extubated with the EBUS-TBNA bronchoscope and intubated with an Olympus IT bronchoscope without difficultly. The airways were inspected and cleared of secretions and blood. Fluoroscopic check for pneumothorax was negative upon completion of the procedure. There was 0 ml blood loss with the procedure. FINDINGS: 1.The airways appeared normal 2 Successful navigation, ultrasonographic identification, and biopsies of right lower lobe mass 3.The EBUS view was (Concentric/Eccentric)}. - Stations sampled: 7 - Stations not sampled due to small size: 4 L (2.7x4.8 mm) and 10 L (4.8x5mm) RECOMMENDATIONS: Await pathology and cytology results The referring physician will be alerted to the results when available. The patient was advised to follow up with the referring physician with the biopsy results Patient will be called with results.
--- NOTE | 2022-12-29 16:25 | FL ---
Intraoperative/procedural fluoroscopic services were provided. Total fluoroscopy time is 3 minutes 53 seconds with a total of 2 submitted images to PACS. Please see the operative/procedural note for fur ther details. DAP: 1.02
[2022-12-29 16:34] VITALS: RESP 16; TEMP 96.9
--- NOTE | 2022-12-29 17:02 | XR ---
EXAMINATION TYPE: XR chest 1V DATE OF EXAM: 12/29/2022 4:44 PM COMPARISON: Chest radiographs from on 08/30/2022 TECHNIQUE: XR chest 1V Frontal view of the chest. CLINICAL INDICATION:Female, 67 years old with history of post biopsy; FINDINGS: Lungs/Pleura: There is flattening of the diaphragm with increased lucency of the lungs. No evidence o f pneumothorax, pleural effusion or focal consolidation. Pulmonary vascularity: Unremarkable. Heart/mediastinum: Cardiomediastinal silhouette is unremarkable. Musculoskeletal: No acute osseous pathology. IMPRESSION: 1. No acute cardiopulmonary disease process. No evidence for pneumothorax. 2. COPD changes.
[2022-12-29 17:19] VITALS: BP 107/63; PULSE 47
== END ==
LOC: ORWHC2ENDO 12:01
PROVIDERS: ATTEND Internal Medicine Critical Care Medicine
DX: R91.1 Solitary pulmonary nodule (principal); R59.0 Localized enlarged lymph nodes; J44.9 Chronic obstructive pulmonary disease, unspecified; G47.33 Obstructive sleep apnea (adult) (pediatric); M19.90 Unspecified osteoarthritis, unspecified site; Z79.51 Long term (current) use of inhaled steroids; Z79.82 Long term (current) use of aspirin; Z88.5 Allergy status to narcotic agent
CPT/HCPCS: 88108; 88305; 88342; 88341; 71045; 71250; 31628; 31629; 31623; 31624; 31652; J2250; J2710; J3010; J2370; J2704

== ENCOUNTER → 2023-01-17 | Outpatient (CLI) | payer MEDICARE, OTHER ==
--- NOTE | 2023-01-21 10:36 | MR ---
EXAMINATION TYPE: MR brain wo/w con DATE OF EXAM: 01/17/2023 11:52 AM CLINICAL INDICATION:Female, 67 years old with history of C34.32 MALIGNANT NEOPLASM OF LOWER LOBE, LEF T BRON; Lung cancer, evaluate for metastatic disease COMPARISON: None TECHNIQUE: Multi planar, multi sequence imaging was performed through the brain including: T1, T2, In version recovery, susceptibility weighted imaging and gradient echo imaging and Diffusion weighted im aging. The patient was then given intravenous contrast and multi planar, T1 fat-saturation images wer e obtained. IV Contrast: 7 cc Gadavist FINDINGS: The moran-white junctions, ventricular system, basal cisterns appear unremarkable. Diffusion-weighted imaging shows no evidence of restricted diffusion to suggest acute/subacute infarct. Intracranial art erial flow voids are maintained. Midline structures show no abnormality. Scattered foci of high T2 si gnal intensity are seen within the periventricular white matter. The susceptibility weighted images d o not reveal any evidence for micro-hemorrhage. After administration of gadolinium, no abnormal enhan cement is seen. 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 The bone marrow signal is within normal limits. Paranasal sinuses and mastoid air cells: No significant paranasal sinus disease. Visualized orbits: Orbital contents are intact. IMPRESSION: 1. No evidence of intracranial mass, acute/subacute infarct, or abnormal enhancement. 2. Nonspecific white matter changes, likely related to small vessel ischemic disease 3. 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
== END | disposition home or self-care (01) ==
LOC: RADMRIMAIN 10:52
PROVIDERS: ATTEND Thoracic Surgery (Cardiothoracic Vascular Surgery)
DX: Z01.818 Encounter for other preprocedural examination (principal); C34.32 Malignant neoplasm of lower lobe, left bronchus or lung; J44.9 Chronic obstructive pulmonary disease, unspecified; R90.82 White matter disease, unspecified; Q04.8 Other specified congenital malformations of brain
CPT/HCPCS: 70553; A9585

== ENCOUNTER → 2023-01-24 | Outpatient (CLI) | payer MEDICARE, OTHER ==
[2023-01-24 13:26] LABS: INR 0.9 (<1.2); Partial Thromboplastin Time 23.5 sec (22.0-30.0); Prothrombin Time 9.7 sec (9.0-12.0)
[2023-01-24 15:11] LABS: Basophils # (A) 0.06 X 10*3/uL (0.00-0.10); Basophils % (A) 0.5 %; Eosinophils # (A) 0.16 X 10*3/uL (0.04-0.35); Eosinophils % (A) 1.3 %; HCT 47.4 % (37.2-46.3); HGB 15.9 g/dL (12.0-15.0); Immature Grans, Automated 0.4 %; Lymphocytes # (A) 3.63 X 10*3/uL (0.90-5.00); Lymphocytes % (A) 28.5 %; MCH 31.1 pg (27.0-32.0); MCHC 33.5 g/dL (32.0-37.0); MCV 92.8 fL (80.0-97.0); Monocytes # (A) 0.96 X 10*3/uL (0.20-1.00); Monocytes % (A) 7.5 %; NRBC Per 100 WBC 0 /100 WBCS (0.0-0.0); Neutrophils # (A) 7.88 X 10*3/uL (1.80-7.70); Neutrophils % (A) 61.8 %; Platelet Count 308 X 10*3/uL (140-440); RBC 5.11 X 10*6/uL (4.10-5.20); RDW 12.6 % (11.5-14.5); WBC 12.74 X 10*3/uL (4.50-10.00)
[2023-01-24 16:27] LABS: Appearance,Urine Clear (Clear); Bilirubin,Urine Negative (Negative); Blood,Urine Negative (Negative); Color,Urine Yellow (Yellow); Ketones,Urine Negative (Negative); Nitrite,Urine Negative (Negative); PH, Urine 6.5 (5.0-8.0); Specific Gravity,Urine 1.015 (1.001-1.030); Urobilinogen,Urine 0.2 (0.2,1.0)
[2023-01-24 22:53] LABS: African American GFR (CKD) 94.8 (60.0-200.0); Anion Gap 11.6 mmol/L (10.00-18.00); Blood Urea Nitrogen 13.6 mg/dL (9.0-27.0); Carbon Dioxide 23.7 mmol/L (20.0-27.5); Non-African American GFR(CKD) 81.8 (60.0-200.0); Potassium 4.9 mmol/L (3.5-5.5)
== END | disposition home or self-care (01) ==
LOC: LABPAT 11:51
PROVIDERS: ATTEND Family Medicine
DX: Z01.812 Encounter for preprocedural laboratory examination (principal); C34.32 Malignant neoplasm of lower lobe, left bronchus or lung; E86.0 Dehydration; R58 Hemorrhage, not elsewhere classified; Z79.899 Other long term (current) drug therapy
CPT/HCPCS: 36415; 80051; 81003; 82565; 82947; 84520; 85025; 85610; 85730; 87086

== ENCOUNTER 2023-01-25 09:11 | Inpatient (IN) | payer MEDICARE, OTHER ==
[~2023-01-25 09:11] MED LIST changes: +DEXAMETHASONE SOD PHOSPHATE 4 MG/ML 1 ML VIAL IV ONE; -GLYCOPYRROLATE 0.2 MG/ML 2 ML VIAL ONE; +HYDROmorphone 0.5 MG/0.5 ML SYRINGE IVP PRN; -KETAMINE 10 MG/ML 20 ML VIAL ONE; +LIDOCAINE 1% (10MG/ML) FOR IV START INTRADERMA PRN; -MIDAZOLAM 2 MG/2 ML VIAL ONE; -NEOSTIGMINE 1 MG/ML 10 ML VIAL ONE; +ONDANSETRON 4 MG/2 ML VIAL IVP ONE; -PHENYLEPHRINE-0.9% NACL SYG 1,000 MCG/10 ML SYRINGE ONE; -PROPOFOL 10 MG/ML 20 ML VIAL IV ONE; -ROCURONIUM 10 MG/ML (5 ML VIAL) IV ONE; -SODIUM CHLORIDE 0.9% 500 ML 500 ML IV ONE; +droPERidol 5 MG/2 ML VIAL IVP ONE; -fentaNYL (PF) 50 MCG/ML 2 ML AMP ONE
[2023-01-25] MEDS ORDERED: LACTATED RINGERS 1,000 ML IV ONE ×2 (09:59→14:54)
[2023-01-25] MEDS ORDERED: MIDAZOLAM 2 MG/2 ML VIAL IVP ONE (11:02)
[2023-01-25] MEDS ORDERED: SUCCINYLCHOLINE CHLORIDE 200 MG/10 ML VIAL IV ONE (12:00)
[2023-01-25] MEDS ORDERED: ROCURONIUM 10 MG/ML (5 ML VIAL) IV ONE (12:00)
[2023-01-25] MEDS ORDERED: GLYCOPYRROLATE 0.2 MG/ML 2 ML VIAL ONE (12:00)
[2023-01-25] MEDS ORDERED: MIDAZOLAM 2 MG/2 ML VIAL ONE (12:00)
[2023-01-25] MEDS ORDERED: PROPOFOL 10 MG/ML 20 ML VIAL IV ONE (12:00)
[2023-01-25] MEDS ORDERED: SODIUM CHLORIDE 0.9% (PF) 10 ML VIAL ONE (12:00)
[2023-01-25] MEDS ORDERED: PHENYLEPHRINE-0.9% NACL SYG 1,000 MCG/10 ML SYRINGE ONE (12:00)
[2023-01-25] MEDS ORDERED: ROPIVACAINE 5 MG/ML 30 ML VIAL ONE (12:00)
[2023-01-25] MEDS ORDERED: DEXAMETHASONE SOD PHOSPHATE 4 MG/ML 1 ML VIAL ONE (12:00)
[2023-01-25] MEDS ORDERED: NEOSTIGMINE 1 MG/ML 10 ML VIAL ONE (12:00)
[2023-01-25] MEDS ORDERED: fentaNYL (PF) 50 MCG/ML 2 ML AMP ONE (12:00)
[2023-01-25] MEDS ORDERED: LIDOCAINE 2% INJ 20 MG/ML (2 ML VIAL) ONE (12:00)
[2023-01-25] MEDS ORDERED: BUPIVACAINE (PF) 0.5% 30 ML VIAL SQ ONE (12:29)
--- NOTE | 2023-01-25 15:10 | P.OP ---
Date of Procedure: 01/25/23 Preoperative Diagnosis: Lung Cancer Current active smoker Anxiety/Depression Postoperative Diagnosis: Same Procedure(s) Performed: 1. Bronchoscopy 2. Left video assisted thorascopic surgery with wedge resection of left lower lobe mass 3. Mediastinal lymph node dissection Anesthesia: GILES Surgeon: Myles Hensley Automobile Locator #1: Janet Horn Estimated Blood Loss (ml): 50 Pathology: other (Left lower lobe wedge, LN stations L8, 7 and L6) Condition: stable Disposition: PACU Indications for Procedure: This patient is a current active smoker who was found to have a 17mm nodule in periphery of the left lower lobe on a routine lung cancer screening CT scan. She underwent EBUS and biopsy of the nodule which revealed adenocarcinoma and EBUS of station 7 was negative. PET/CT did not reveal any FDG avidity in the mediastinum or enlarged nodes. Given her relentless to stop smoking and borderline DLCO of 43%, wedge resection with MLND was recommended. Operative Findings: Left lower lobe wedge resection with tumor and good margins on gross examination. Description of Procedure: An erector spinae block was performed by anethebrandon in the pre-operative suite as well as an arterial line. The patient was brought back to the operating room and placed in the supine position. General anesthesia was induced and she was intubated with a left sided double lumen tube. Bronchoscopy was performed to confirm tube placement as well as for diagnostic purposes. There were minimal secretions with no evidence of endobronchial disease. The patient was placed in the right lateral decubitus position and her left chest was prepped and draped in the usual sterile fashion. The left lung was isolated. I made a 2cm incision in the 7th ICS posterior axillary line and gained entry into the chest under direct vision. There was good lung isolation. I made two additional 2cm incisions in the 5th and 9th ICS, anterior and mid axillary lines respectively. I was able to identify the lesion in the superior segment of the left lower lobe. I then used serial firings of the endo SARAH re-inforced purple loads to perform a wedge resection of the lesion. This was placed in an endo catch bag and removed from the chest cavity. I then took down the inferior pulmonary ligament using the harmonic scalpel. Station 8 LN was obtained here. I continued the dissection over the posterior mediatinal pleura obtaining level 7 node and superiorly to the AP window. Level 6 node were obtained here. The chest was irrigated with saline and a leak test was performed which was negative. A 28F chest tube was inserted via the inferior incision and all other incisions were closed in layers of vicryl and glue. The patient was extubated at the end of the procedure without evidence of air leak.
[2023-01-25] MEDS ORDERED: ACETAMINOPHEN TAB 325 MG TAB PO PRN (15:15)
[2023-01-25] MEDS ORDERED: IPRATROPIUM-ALBUTEROL 3 ML NEB IH PRN (15:15)
[2023-01-25] MEDS ORDERED: DEXTROSE 5%-0.45% NACL 1,000 ML IV SCH (15:15)
[2023-01-25] MEDS ORDERED: ONDANSETRON 4 MG/2 ML VIAL IVP PRN (15:15)
[2023-01-25] MEDS ORDERED: traMADol 50 MG TAB PO PRN (15:15)
[2023-01-25] MEDS ORDERED: HYDROmorphone 0.5 MG/0.5 ML SYRINGE IVP ONE (15:28)
--- NOTE | 2023-01-25 15:44 | XR ---
EXAMINATION TYPE: XR chest 1V portable DATE OF EXAM: 01/25/2023 COMPARISON: NONE HISTORY: POST VATS TECHNIQUE: Single frontal view of the chest is obtained. FINDINGS: There is no focal air space opacity, pleural effusion, or pneumothorax seen. The cardiac silhouette size is within normal limits. The osseous structures are intact. Chest tube in position. Subcutaneous emphysema left chest. Large LUQ calcification. 1.8 cm. IMPRESSION: 1. Postsurgical changes with a left-sided chest tube but no sizable pneumothorax. There is a small am ount of subcutaneous emphysema. 2. There is a large calcification measuring approximately 1.8 cm left upper quadrant appears to be se en by a recent CT scan represent a calcified splenic cyst or remote splenic hematoma with peripheral calcification.
[2023-01-25] MEDS: IPRATROPIUM-ALBUTEROL 3 ML NEB IH SCH ×2 (15:54→19:59)
--- NOTE | 2023-01-25 16:39 | P.CNPUL ---
History of Present Illness Consult date: 01/25/23 Reason for consult: lung mass History of present illness: 67-year-old female patient with a history of COPD, chronic smoking around 1.5 pack of cigarettes a day one-to-one. Low-dose CAT scan of the chest and the patient was found to have emphysema in addition to a left lower lobe pulmonary nodule measuring 1.26 cm in size. The patient underwent a PET/CT that showed that the lesion was added and following that the patient underwent a robotic- assisted bronchoscopy and the diagnosis was consistent with adenocarcinoma. Endobronchial ultrasound was negative for any mediastinal lymphadenopathy. The patient's FEV1 was in order of 68% of predicted with a diffusion capacity of 43% of predicted. The patient was referred for thoracic surgical resection of the way nodule and we decided to undergo a wedge resection. The patient underwent the thoracoscopic wedge resection of the left lower lobe mass today along with mediastinal lymph node dissection. The patient is currently in recovery. The patient is awaiting his simplest fullface mask. Postop chest x-ray shows adequate expansion of the left lung field no evidence of pneumothorax. The patient is chest tube in place and output is minimal and there is no evidence of any air leak. The patient is communicating. Hemodynamically stable and the patient's going to be going to a medical surgical floor with telemetry monitoring. Review of Systems Constitutional: Denies chills, Denies fever Eyes: denies as per HPI, denies blurred vision, denies bulging eye, denies decreased vision, denies diplopia, denies discharge, denies dry eye, denies irritation, denies itching, denies pain, denies photophobia, denies loss of peripheral vision, denies loss of vision, denies tunnel vision/blind spots Ears: deny: decreased hearing, ear discharge, earache, tinnitus Ears, nose, mouth and throat: Reports as per HPI Breasts: absent: as per HPI, change in shape, gynecomastia, masses, nipple discharge, pain, skin changes, swelling Cardiovascular: Reports decreased exercise tolerance, Reports dyspnea on exertion Respiratory: Reports dyspnea Gastrointestinal: Reports as per HPI Genitourinary: Reports as per HPI Menstruation: Reports as per HPI Musculoskeletal: Reports as per HPI Musculoskeletal: absent: ankle pain, ankle stiffness, ankle swelling, as per HPI, elbow pain, elbow stiffness, elbow swelling, foot pain, foot stiffness, foot swelling, hand pain, hand stiffness, hand swelling, hip pain, hip stiffness, hip swelling, knee pain, knee stiffness, knee swelling, shoulder pain, shoulder stiffness, shoulder swelling, wrist pain, wrist stiffness, wrist swelling Integumentary: Reports as per HPI Neurological: Reports as per HPI Psychiatric: Reports as per HPI Endocrine: Reports as per HPI Hematologic/Lymphatic: Reports as per HPI Allergic/Immunologic: Reports as per HPI Past Medical History Past Medical History: Atrial Fibrillation, Cancer (Non-small cell lung cancer/adenocarcinoma confirmed by an transbronchial biopsy), COPD, Hyperlipidemia, Memory Impairment, Musculoskeletal Disorder, Osteoarthritis (OA), Pneumonia, Sleep Apnea/CPAP/BIPAP Additional Past Medical History / Comment(s): Hx Blood clot bottom left foot, does not use CPAP or BIPAP, urinary leakage, DDD, had hospitalization in August 2022 for covid-had brief episode of a-fib. during hospitalization-no further problems or tx. History of Any Multi-Drug Resistant Organisms: None Reported Past Surgical History: Bladder Surgery, Section, Cholecystectomy, Hernia Repair, Hysterectomy, Joint Replacement, Orthopedic Surgery, Tonsillectomy Additional Past Surgical History / Comment(s): Total Right hip arthroplasty, Left knee arthroscopy x 2, EGD, Bladder suspension. TOTAL LT HIP 05/08/18, total left hip revision 09-11-2018, thyroid nodule biopsy-neg , PAIN CLINIC INJECTION, bronchoscopy Past Anesthesia/Blood Transfusion Reactions: No Reported Reaction Smoking Status: Current every day smoker - Past Family History Mother Family Medical History: Cancer Additional Family Medical History / Comment(s): Pt does not recall type of cancer. Sister(s) Family Medical History: Cancer Father Family Medical History: No Reported History Additional Family Medical History / Comment(s): Father was healthy until the time of his at age 85 yrs. He did have history of diabetes and myocardial infarction. Patient is 2 brothers and 2 sisters with no major medical problems. Brother(s) Family Medical History: Cancer Additional Family Medical History / Comment(s): KIDNEY CA, Medications and Allergies Home Medications Medication Instructions Recorded Confirmed Type Sertraline [Zoloft] 100 mg PO DAILY 08/30/22 01/25/23 History Aspirin 81 mg PO DAILY 11/25/22 01/25/23 History Atorvastatin Calcium 10 mg PO HS 11/25/22 01/25/23 History Ascorbic Acid [Vitamin C] 1,000 mg PO DAILY 01/24/23 01/25/23 History Cholecalciferol [Vitamin D3 (25 25 mcg PO DAILY 01/24/23 01/25/23 History Mcg = 1000 Iu)] Cyanocobalamin (Vitamin B-12) 1,000 mcg PO DAILY 01/24/23 01/25/23 History [Vitamin B-12] Zinc Gluconate [Zinc] 50 mg PO DAILY 01/24/23 01/25/23 History Allergies Allergy/AdvReac Type Severity Reaction Status Date / Time codeine AdvReac Nausea & Verified 01/25/23 10:04 Vomiting morphine AdvReac Nausea & Verified 01/25/23 10:04 Vomiting Physical Exam Vitals: Vital Signs Temp Pulse Resp BP Pulse Ox 01/25/23 16:25 50 L 16 82/48 92 L 01/25/23 16:22 89/46 01/25/23 16:21 82/50 01/25/23 16:05 51 L 20 92/52 92 L 01/25/23 15:50 51 L 16 108/46 91 L 01/25/23 15:36 86/52 01/25/23 15:35 49 L 20 91/51 100 01/25/23 15:33 87/49 01/25/23 15:20 53 L 20 115/63 100 01/25/23 15:05 97.1 F L 57 L 14 133/63 96 01/25/23 11:33 52 L 117/58 95 01/25/23 10:09 98.2 F 68 99/56 96 Intake and Output 01/25/23 01/25/23 01/25/23 06:59 14:59 22:59 Intake Total 1750 200 Output Total 25 Balance 1725 200 Intake: IV 1750 200 Output: Estimated Blood Loss 25 Other: Weight 71.6 kg Calm and comfortable on a simple mask, still sedated on that effective anesthetics Head exam was generally normal. There was no scleral icterus or corneal arcus. Mucous membranes were moist. Neck was supple and without jugular venous distension, thyromegaly, or carotid bruits. Carotids were easily palpable bilaterally. There was no adenopathy. Lungs were clear to auscultation and percussion, and with normal diaphragmatic excursion. No wheezes or rales were noted. The patient is a left sided chest tube in place Cardiac exam revealed the PMI to be normally situated and sized. The rhythm was regular and no extrasystoles were noted during several minutes of auscultation. The first and second heart sounds were normal and physiologic splitting of the second heart sound was noted. There were no murmurs, rubs, clicks, or gallops. AAbdominal exam revealed normal bowel sounds. The abdomen was soft, non-tender, and without masses, organomegaly, or appreciable enlargement of the abdominal aorta. Examination of the extremities revealed easily palpable radial, femoral and pedal pulses. There was no cyanosis, clubbing or edema. Examination of the skin revealed no evidence of significant rashes, suspicious appearing nevi or other concerning lesions. Results - Diagnostic Findings Chest x-ray: image reviewed Assessment and Plan Plan: Early stage adenocarcinoma of the left lung, with a 1.2 cm left lower lobe pulmonary nodule and the patient underwent thoracoscopic wedge resection along with mediastinal lymph node sampling. Patient is currently postop day #0 COPD with a preoperative FEV1 of 68% of predicted and a diffusion capacity of 43% of predicted Obstructive sleep apnea Previous history of Covid 19 infection Hyperlipidemia Previous history of paroxysmal atrial fibrillation Osteoarthritis Depression History of smoking Irritable bowel syndrome Plan Keep the patient on oxygen and titrated to 2 L/m nasal cannula Provide incentive spirometer Keep the left-sided chest tube attached to the pleural VAC and suction Monitor the output Repeat chest exam daily basis Pain control per surgery Resume all medications and the patient takes tramadol 50 mg 4 times a day on a when necessary basis Heparin subcu portably prophylaxis Albuterol and ipratropium the blood treatments 4 times a day [id number] We'll continue to follow
[2023-01-25] MEDS: HEPARIN SODIUM,PORCINE/PF 5,000 UNIT/0.5 ML SYRINGE SQ SCH ×2 (17:04→23:59)
[2023-01-25] MEDS: KETOROLAC 15 MG/ML 1 ML VIAL IVP SCH ×2 (17:05→23:59)
[2023-01-25] MEDS ORDERED: ALBUMIN HUMAN 5% 500 ML in EMPTY BAG 1 BAG IVPB ONE (17:28)
--- NOTE | 2023-01-25 20:54 | P.ANPRN ---
Procedure Note - Anesthesia - Nerve Block Performed Left Erector Spinae Single Time Out Performed: Yes Date of Procedure: 01/25/23 Procedure Start Time: 11:01 Procedure Stop Time: 11:06 Location of Patient: PreOp Indication: Acute Post-Operative Pain, Requested by Surgeon Sedation Type: Sedate with meaningful contact maintained Preparation: Sterile Prep Position: Prone Needle Types: Pajunk Needle Gauge: 21 Ultrasound used to visualize needle placement: Yes Ultrasound used to observe medication spread: Yes Blood Aspirated: No Pain Paresthesia on Injection Noted: No Resistance on Injection: Normal Image Stored and Saved: Yes Events: Uneventful and Well Tolerated (Ropivacaine 0.5% 15 mL plus dexamethasone 4 mg plus normal saline 10 mL was given at T6)
[2023-01-25] MEDS ORDERED: ATORVASTATIN 10 MG TAB PO SCH (21:00)
[2023-01-26] MEDS: KETOROLAC 15 MG/ML 1 ML VIAL IVP SCH ×2 (05:44→11:10)
[2023-01-26] MEDS ORDERED: PANTOPRAZOLE 40 MG TABLET PO SCH (07:30)
[2023-01-26] MEDS: HEPARIN SODIUM,PORCINE/PF 5,000 UNIT/0.5 ML SYRINGE SQ SCH (08:13)
--- NOTE | 2023-01-26 08:14 | P.PN ---
Subjective Progress Note Date: 01/26/23 Principal diagnosis: Left lower lobe adenocarcinoma. History of current tobacco dependence, COPD, obstructive sleep apnea without home CPAP use, brief paroxysmal atrial fibrillation when hospitalized for covid in August 2022 not on anticoagulation, hyperlipidemia, anxiety/depression POD #1 bronchoscopy, left video-assisted thoracoscopic surgery with wedge resection of left lower lobe mass, mediastinal lymph node dissection The patient was seen and examined this morning sitting up in bed on the cardiac stepdown unit in no acute distress eating breakfast. She does lack motivation to get up and get moving, denies any pain except when turning onto her left side although she is only using Toradol for pain control. Denies shortness of breath. Remains on 2 L nasal cannula with oxygen saturation in the high 90s. Remains in sinus rhythm and hemodynamically stable. Left pleural chest tube was left to suction overnight due to small intermittent air leak yesterday with coughing. No air leak present this morning. No other new concerns. Objective - Vital Signs Vital signs: Vital Signs Temp 98.4 F 01/26/23 04:00 Pulse 58 L 01/26/23 04:00 Resp 16 01/26/23 04:00 BP 104/56 01/26/23 04:00 Pulse Ox 99 01/26/23 04:00 FiO2 Intake & Output 01/25/23 01/26/23 01/26/23 18:59 06:59 18:59 Intake Total 1950 Output Total 38 111 Balance 1912 - Weight 71.6 kg Intake: IV 1950 Output: Chest Tube Drainage 13 111 Left 13 111 Estimated Blood Loss 25 Other: Voiding Method Bedpan # Voids 0 2 - Exam CONSTITUTIONAL: Appears comfortable, cooperative, no acute distress RESPIRATORY: Lungs sounds diminished bilaterally. Respirations even, nonlabored. Currently on 2 L nasal cannula with oxygen saturation 99%. Able to achieve 800 mL on incentive spirometry. Strong cough. CARDIOVASCULAR: S1, S2 present. Regular rate and rhythm, sinus rhythm on telemetry. Palpable peripheral pulses bilaterally. No edema present. No calf pain or tenderness noted. SCDs present. GASTROINTESTINAL: Abdomen soft, nontender, nondistended. Active bowel sounds present 4 quadrants. Tolerating diet GENITOURINARY: Continues to void INTEGUMENTARY: Skin is warm and dry with evidence of good perfusion NEUROLOGIC: Cranial nerves II through XII intact MUSKULOSKELETAL: Able to move all extremities, strength equal bilaterally, gait normal PSYCHIATRIC: Alert and oriented to person place and time, flat affect INVASIVE LINES AND TUBES: Left pleural chest tube present and connected to wall suction, no air leaks present, 110 mL serosanguineous drainage overnight, 210 mL since surgery - Allied health notes Allied health notes reviewed: nursing - Imaging and Cardiology Chest x-ray: image reviewed Assessment and Plan Assessment: Left lower lobe adenocarcinoma, status post bronchoscopy, left video-assisted thoracoscopic surgery with wedge resection of left lower lobe mass, mediastinal lymph node dissection Current tobacco dependence Mild COPD, preoperative FEV1 69% of predicted, DLCO 43% Obstructive sleep apnea without home CPAP use Brief paroxysmal atrial fibrillation when hospitalized for covid in August 2022 not on anticoagulation Hyperlipidemia, treated Anxiety/depression Plan: Chest tube placed to waterseal, will recheck for air leak later today and possibly discontinue chest tube Wean O2 as tolerated. Encourage incentive spirometry use Increase activity, patient to be out of bed during the day Will monitor chest x-rays Pain control with current medication regimen Continue home medications GI/DVT prophylaxis Smoking cessation education and counseling discussed We'll continue to follow pathology More recommendations to follow
[2023-01-26 08:52] LABS: Basophils % (A) 0 %; Eosinophils # (A) 0.2 k/uL (0-0.7); Eosinophils % (A) 2 %; HCT 39.4 % (34.0-46.0); HGB 13.4 gm/dL (11.4-16.0); Lymphocytes # (A) 1.5 k/uL (1.0-4.8); Lymphocytes % (A) 11 %; MCH 31.3 pg (25.0-35.0); MCHC 34.1 g/dL (31.0-37.0); MCV 91.6 fL (80.0-100.0); Mean Platelet Volume 9.4; Monocytes # (A) 0.5 k/uL (0-1.0); Monocytes % (A) 3 %; Neutrophils # (A) 11.3 k/uL (1.3-7.7); Neutrophils % (A) 84 %; Platelet Count 193 k/uL (150-450); RDW 12.9 % (11.5-15.5); WBC 13.6 k/uL (3.8-10.6)
[2023-01-26] MEDS: IPRATROPIUM-ALBUTEROL 3 ML NEB IH SCH ×2 (08:59→11:41)
[2023-01-26] MEDS ORDERED: SERTRALINE 100 MG TAB PO SCH (09:00)
[2023-01-26] MEDS ORDERED: ZINC SULFATE 220 MG CAP PO SCH (09:00)
[2023-01-26] MEDS ORDERED: ASCORBIC ACID 500 MG TAB PO SCH (09:00)
[2023-01-26] MEDS ORDERED: CHOLECALCIFEROL 25 MCG (1000 IU) TABLET PO SCH (09:00)
[2023-01-26] MEDS ORDERED: ASPIRIN 81 MG PO SCH (09:00)
[2023-01-26] MEDS ORDERED: CYANOCOBALAMIN 500 MCG TAB PO SCH (09:00)
--- NOTE | 2023-01-26 09:03 | XR ---
EXAMINATION TYPE: XR chest 2V DATE OF EXAM: 01/26/2023 COMPARISON: 01/25/2023 TECHNIQUE: PA and lateral views submitted. HISTORY: Post VATS FINDINGS: There is no focal air space opacity, pleural effusion, or pneumothorax seen. The cardiac silhouette s ize is within normal limits. The osseous structures are intact. Chest tube in position. Subcutaneous emphysema left chest. Large LUQ calcification. 1.8 cm. IMPRESSION: 1. Stable left-sided chest tube with bilateral lower lobe atelectasis favored over pneumonia and smal l left effusion. No sizable pneumothorax. Subcutaneous emphysema along the lower left chest [facility] in noted.
[2023-01-26 10:23] LABS: African American GFR (CKD) >90 (>60 ml/min/1.73 sqM); Anion Gap 7 mmol/L; Blood Urea Nitrogen 12 mg/dL (7-17); Carbon Dioxide 24 mmol/L (22-30); Chloride 106 mmol/L (98-107); Glucose 113 mg/dL (74-99); Non-African American GFR(CKD) >90 (>60 ml/min/1.73 sqM); Sodium 137 mmol/L (137-145)
[2023-01-26 10:24] LABS: Potassium 4.8 mmol/L (3.5-5.1)
[2023-01-26 11:33] VITALS: BP 89/55; RESP 17; TEMP 98.6
[2023-01-26 11:50] VITALS: PULSE 55
--- NOTE | 2023-01-26 12:55 | P.DS ---
Providers Date of admission: 01/25/23 09:11 Expected date of discharge: 01/26/23 Attending physician: Myles Hensley MD Consults: 01/25/23 15:15 Consult Physician Routine Consulting Provider: Josue Caldera Consult Reason/Comments: post vats Do you want consulting provider notified?: Yes Primary care physician: Pj Alcocer [facility] Hospital Course: FINAL DIAGNOSIS: 1. Left lower lobe adenocarcinoma 2. Current tobacco dependence 3. Mild COPD, preoperative FEV1 69% of predicted, DLCO 43% 4. Obstructive sleep apnea without home CPAP use 5. Brief paroxysmal atrial fibrillation when hospitalized for Covid in August 2022, not on anticoagulation 6. Hyperlipidemia, treated 7. Anxiety/depression PRINCIPAL PROCEDURE: 1. Bronchoscopy 2. Left video-assisted thoracoscopic surgery with wedge resection of left lower lobe mass 3. Mediastinal lymph node dissection HISTORY OF PRESENT ILLNESS: This is a 67-year-old female patient who follows with Dr. Alcocer for internal medicine as well as Dr. Caldera for pulmonology. The patient had a low-dose CT scan of the chest due to her tobacco dependence and was found to have emphysema in addition to a left lower lobe pulmonary nodule. Subsequently she had a PET scan which demonstrated abnormal hypermetabolic uptake in the lung nodule. Following that she underwent a robotic-assisted bronchoscopy and pathology was consistent with adenocarcinoma. Endobronchial ultrasound was negative for any mediastinal lymphadenopathy. The patient was referred to Dr. Hensley from thoracic surgery. She was recommended to undergo wedge resection of the left lower lobe mass along with mediastinal lymph node dissection. The usual perioperative course was discussed in detail with the patient and her family, all risks and benefits were explained, all questions were answered, and consent was obtained to proceed with surgery. The patient was scheduled for surgery at the earliest possible date. HOSPITAL COURSE: The patient was brought to the hospital on 01/25/23, taken to the preoperative area, prepared in the usual fashion, and subsequently taken to the operating room where Dr. Hensley performed a left VATS for wedge resection of left lower lobe mass as well as mediastinal lymph node dissection. Upon completion of surgery the patient was extubated and taken to the recovery room for further monitoring. She was eventually admitted to [address] [place] [id number] cardiac stepdown unit for close monitoring. The morning after surgery she had no air leak present in her chest tube chamber, chest x-ray was stable, and pleural chest t ube was discontinued without incident. Follow-up chest x-ray remained stable without pneumothorax. Her oxygen was titrated down, she was tolerating oral diet, her pain was controlled, and she was ready to be discharged to home on postoperative day #1. She received written and verbal instruction regarding her medications, activity restrictions, signs and symptoms requiring physician notification, and follow-up appointments. Patient Condition at Discharge: Stable Plan - Discharge Summary Discharge Rx Participant: No New Discharge Prescriptions: New Acetaminophen Tab [Tylenol] 650 mg PO Q4HR PRN tab PRN Reason: Mild To Moderate Pain (1 - 6) Continue Sertraline [Zoloft] 100 mg PO DAILY Atorvastatin Calcium 10 mg PO HS Cholecalciferol [Vitamin D3 (25 Mcg = 1000 Iu)] 25 mcg PO DAILY Cyanocobalamin (Vitamin B-12) [Vitamin B-12] 1,000 mcg PO DAILY Aspirin 81 mg PO DAILY Ascorbic Acid [Vitamin C] 1,000 mg PO DAILY Zinc Gluconate [Zinc] 50 mg PO DAILY Discharge Medication List Sertraline [Zoloft] 100 mg PO DAILY 08/30/22 [History] Aspirin 81 mg PO DAILY 11/25/22 [History] Atorvastatin Calcium 10 mg PO HS 11/25/22 [History] Ascorbic Acid [Vitamin C] 1,000 mg PO DAILY 01/24/23 [History] Cholecalciferol [Vitamin D3 (25 Mcg = 1000 Iu)] 25 mcg PO DAILY 01/24/23 [History] Cyanocobalamin (Vitamin B-12) [Vitamin B-12] 1,000 mcg PO DAILY 01/24/23 [History] Zinc Gluconate [Zinc] 50 mg PO DAILY 01/24/23 [History] Acetaminophen Tab [Tylenol] 650 mg PO Q4HR PRN tab 01/26/23 [Rx] Follow up Appointment(s)/Referral(s): Pj Alcocer III, MD [Primary Care Provider] - As Needed Myles Hensley MD [STAFF PHYSICIAN] - 02/10/23 2:00 pm Josue Caldera MD [STAFF PHYSICIAN] - 02/08/23 1:30 pm Activity/Diet/Wound Care/Special Instructions: DISCHARGE INSTRUCTIONS: 1. No driving for 2 weeks, or until physician gives their ok. 2. No lifting, pushing, or pulling more than 10 pounds for 2 weeks. The physician will advise of any restriction changes. 3. Continue pain control per as needed orders. Alternate acetaminophen (Tylenol) and ibuprofen (Motrin/Advil) for pain. 4. Continue with incentive spirometry and splinting until otherwise directed by the physician. 5. Leave chest tube dressing for 48 hours. After that, remove all dressings and shower daily. 6. Routine incision care. No powders, lotions, ointments on incisions. 7. Please call surgeon/[employer] for temp greater than 101 F or purulent drainage from incisions. 8. Smoking cessation counseling and program information provided. Quitting smoking is the most important step you can take to improve your health. For additional information and assistance to quit smoking, please call the [place] tobacco quit line (1-171-GEWH-NOW/ ) or online: [email or web address] Discharge Disposition: HOME SELF-CARE
--- NOTE | 2023-01-26 13:00 | XR ---
EXAMINATION TYPE: XR chest 1V portable DATE OF EXAM: 01/26/2023 COMPARISON: 01/26/2023 HISTORY: Post chest tube removal TECHNIQUE: Single frontal view of the chest is obtained. FINDINGS: There is pneumothorax seen. The cardiac silhouette size is within normal limits. The os seous structures are intact. Left-sided chest tube has been removed. Elevated left hemidiaphragm with subsegmental atelectasis noted. Subcutaneous emphysema on the left seen. Large splenic calcification left upper quadrant again noted. Arthropathy of the shoulders. IMPRESSION: 1. No pneumothorax post chest tube removal. Favor basal atelectasis on the left.
--- NOTE | 2023-01-26 15:11 | P.PN ---
Subjective Progress Note Date: 01/26/23 67-year-old female patient with a history of COPD, chronic smoking around 1.5 pack of cigarettes a day one-to-one. Low-dose CAT scan of the chest and the patient was found to have emphysema in addition to a left lower lobe pulmonary nodule measuring 1.26 cm in size. The patient underwent a PET/CT that showed that the lesion was added and following that the patient underwent a robotic- assisted bronchoscopy and the diagnosis was consistent with adenocarcinoma. Endobronchial ultrasound was negative for any mediastinal lymphadenopathy. The patient's FEV1 was in order of 68% of predicted with a diffusion capacity of 43% of predicted. The patient was referred for thoracic surgical resection of the way nodule and we decided to undergo a wedge resection. The patient underwent the thoracoscopic wedge resection of the left lower lobe mass today along with mediastinal lymph node dissection. The patient is currently in recovery. The patient is awaiting his simplest fullface mask. Postop chest x-ray shows adequate expansion of the left lung field no evidence of pneumothorax. The patient is chest tube in place and output is minimal and there is no evidence of any air leak. The patient is communicating. Hemodynamically stable and the patient's going to be going to a medical surgical floor with telemetry monitoring. On today's evaluation of 01/26/2023, the patient is doing well and she has no specific complaints. Chest x-ray from today shows no evidence of any pneumothorax and a left-sided chest tube was removed. Patient is currently on room air oxygen. The patient is hemodynamically stable. No specific complaints. Pain is under adequate control for now. The plan is to discharge this patient home today. Objective - Vital Signs Vital signs: Vital Signs Temp 98.4 F 01/26/23 08:10 Pulse 54 L 01/26/23 09:11 Resp 18 01/26/23 08:10 BP 95/53 01/26/23 08:10 Pulse Ox 97 01/26/23 09:00 FiO2 Intake & Output 01/25/23 01/26/23 01/26/23 18:59 06:59 18:59 Intake Total 1950 480 Output Total 38 111 41 Balance 1912 - 439 Weight 71.6 kg Intake: IV 1950 Oral 480 Output: Chest Tube Drainage 13 111 40 Left 13 111 40 Urine 1 Estimated Blood Loss 25 Other: Voiding Method Bedpan Bedpan # Voids 0 2 - Exam Calm and comfortable on a simple mask, still sedated on that effective anesthetics Head exam was generally normal. There was no scleral icterus or corneal arcus. Mucous membranes were moist. Neck was supple and without jugular venous distension, thyromegaly, or carotid bruits. Carotids were easily palpable bilaterally. There was no adenopathy. Lungs were clear to auscultation and percussion, and with normal diaphragmatic excursion. No wheezes or rales were noted. The patient is a left sided chest tube in place Cardiac exam revealed the PMI to be normally situated and sized. The rhythm was regular and no extrasystoles were noted during several minutes of auscultation. The first and second heart sounds were normal and physiologic splitting of the second heart sound was noted. There were no murmurs, rubs, clicks, or gallops. AAbdominal exam revealed normal bowel sounds. The abdomen was soft, non-tender, and without masses, organomegaly, or appreciable enlargement of the abdominal aorta. Examination of the extremities revealed easily palpable radial, femoral and pedal pulses. There was no cyanosis, clubbing or edema. Examination of the skin revealed no evidence of significant rashes, suspicious appearing nevi or other concerning lesions. - Labs CBC & Chem 7: 01/26/23 08:32 01/26/23 08:32 Labs: Abnormal Lab Results - Last 24 Hours (Table) 01/26/23 Range/Units 08:32 WBC 13.6 H (3.8-10.6) k/uL Neutrophils # 11.3 H (1.3-7.7) k/uL Assessment and Plan Plan: Early stage adenocarcinoma of the left lung, with a 1.2 cm left lower lobe pulmonary nodule and the patient underwent thoracoscopic wedge resection along with mediastinal lymph node sampling. Patient is currently postop day #1 COPD with a preoperative FEV1 of 68% of predicted and a diffusion capacity of 43% of predicted Obstructive sleep apnea Previous history of Covid 19 infection Hyperlipidemia Previous history of paroxysmal atrial fibrillation Osteoarthritis Depression History of smoking Irritable bowel syndrome Plan The patient is currently on room air oxygen Provide incentive spirometer Right-sided chest tube will be removed and patient will likely be discharged home today. tramadol 50 mg 4 times a day on a when necessary basis We'll continue to follow on outpatient basis
== END 2023-01-26 13:02 | disposition home or self-care (01) | DRG 168 ==
LOC: 2ORMAIN 09:11 → 3SCARD 15:25
PROVIDERS: ADMIT Thoracic Surgery (Cardiothoracic Vascular Surgery); ATTEND Thoracic Surgery (Cardiothoracic Vascular Surgery)
PROC: 0BBJ4ZX Excision of Left Lower Lung Lobe, Percutaneous Endoscopic Approach, Diagnostic (ICD-10-PCS; principal; 2023-01-25 11:30)
PROC: 07B74ZX Excision of Thorax Lymphatic, Percutaneous Endoscopic Approach, Diagnostic (ICD-10-PCS; principal; 2023-01-25 11:30)
PROC: 0BJ08ZZ Inspection of Tracheobronchial Tree, Via Natural or Artificial Opening Endoscopic (ICD-10-PCS; principal; 2023-01-25 11:30)
DX: C34.32 Malignant neoplasm of lower lobe, left bronchus or lung (principal); F06.8 Other specified mental disorders due to known physiological condition; E78.5 Hyperlipidemia, unspecified; J43.9 Emphysema, unspecified; I48.0 Paroxysmal atrial fibrillation; F32.A Depression, unspecified; F41.9 Anxiety disorder, unspecified; G47.33 Obstructive sleep apnea (adult) (pediatric); Z28.310 Unvaccinated for COVID-19; F17.210 Nicotine dependence, cigarettes, uncomplicated; R32 Unspecified urinary incontinence; M19.90 Unspecified osteoarthritis, unspecified site; K58.9 Irritable bowel syndrome, unspecified; Z79.82 Long term (current) use of aspirin; Z79.899 Other long term (current) drug therapy; Z86.16 Personal history of COVID-19; Z88.5 Allergy status to narcotic agent; Z71.6 Tobacco abuse counseling; Z96.643 Presence of artificial hip joint, bilateral
CPT/HCPCS: 64999; 71045; 71046; 80048; 85025; 86850; 86900; 86901; 88305; 88307; 88313; 88341; 88342; 94640

== ENCOUNTER → 2023-07-10 | Outpatient (CLI) | payer MEDICARE, OTHER ==
[2023-07-10 16:54] LABS: Basophils # (A) 0.06 X 10*3/uL (0.00-0.10); Basophils % (A) 0.7 %; Eosinophils % (A) 1.2 %; HCT 51.2 % (37.2-46.3); HGB 16.7 g/dL (12.0-15.0); Lymphocytes % (A) 21.1 %; MCHC 32.6 g/dL (32.0-37.0); Mean Platelet Volume 11.5 FL (9.5-12.2); Monocytes % (A) 4.7 %; NRBC Per 100 WBC 0 X 10*3/uL (0.00-0.01); Neutrophils # (A) 6.16 X 10*3/uL (1.80-7.70); Neutrophils % (A) 72.1 %; Platelet Count 264 X 10*3/uL (140-440); RBC 5.39 X 10*6/uL (4.10-5.20); WBC 8.54 X 10*3/uL (4.50-10.00)
[2023-07-10 18:35] LABS: Blood Urea Nitrogen 15.6 mg/dL (9.0-27.0); Calcium 10.4 mg/dL (8.7-10.3); Carbon Dioxide 26.5 mmol/L (21.6-31.8); Chloride 104 mmol/L (96-109); Glucose 93 mg/dL (70-110); Potassium 5.2 mmol/L (3.5-5.5); Sodium 141 mmol/L (135-145)
== END | disposition home or self-care (01) ==
LOC: LABPAT 07:02
PROVIDERS: ATTEND Orthopaedic Surgery Hand Surgery
DX: Z01.812 Encounter for preprocedural laboratory examination (principal); M65.4 Radial styloid tenosynovitis [de Quervain]
CPT/HCPCS: 80048; 85025

== ENCOUNTER 2023-07-19 08:02 | Day surgery (SDC) | payer MEDICARE, OTHER ==
[2023-07-14 16:09] VITALS: BMI 24.3
--- NOTE | 2023-07-18 12:08 | P.HPOR ---
History of Present Illness H&P Date: 07/18/23 Subjective: This is a 67 year old female that presents today for initial evaluation regarding a several months history of bilateral wrist pain with the right being worse than the left. She describes the pain is located just above the base of the thumb. She denies any numbness or tingling. She's tried anti-inflammatories with no relief. She has pain with lifting and twisting the wrist. Physical Examination: LUE: AIN/PIN/Radial/Ulnar/Median motor intact. Radial/Ulnar/Median SILT. 2+/4 Radial/Ulnar pulses palpated. 5/5 APB, 5/5 FDI. Negative Finkelsteins, negative CMC grind, negative Durkan's compression. RUE: AIN/PIN/Radial/Ulnar/Median motor intact. Radial/Ulnar/Median SILT. 2+/4 Radial/Ulnar pulses palpated. 5/5 APB, 5/5 FDI. Positive Finkelsteins, negative CMC grind, negative Durkan's compression. Imaging: X-Rays of the left hand 3V taken in office today severe degenerative changes at the left thumb CMC joint with osteophyte formation. X-Rays of the right hand 3V taken in office today demonstrate [id number] degenerative changes at the thumb CMC joint. Impression: 1.) Right DeQuervains tenosynovitis Plan: Diagnosis and treatment options were discussed with the patient. She is most symptomatic at her first dorsal compartment on the right wrist today. I recommend steroid injection however she wishes to avoid any steroid usage and wishes to proceed with a right first dorsal compartment release. Risks and benefits of surgery including bleeding, infection, damage to surrounding tissue, need for further surgery, residual numbness were discussed and the patient wished to go forward with surgery. The patient was agreeable with this plan. -Vladimir Rodas DO Orthopedic Hand/Upper Extremity Surgeon Past Medical History Past Medical History: Atrial Fibrillation, Cancer, COPD, GERD/Reflux, Hearing Disorder / Deafness, Hyperlipidemia, Memory Impairment, Musculoskeletal Disorder, Osteoarthritis (OA), Pneumonia, Sleep Apnea/CPAP/BIPAP Additional Past Medical History / Comment(s): Hx left lower lobe lung cancer with surgery 01/26/23. Hx Blood clot - bottom of left foot. No CPAP or BIPAP use. Urinary leakage. Back and neck pain, Degenerative Disc Disease. Hospitalization for 3 days August 2022 for Covid, with brief episode of A-fib. during ho spitalization, no further problems or treatment. Hard of hearing. History of Any Multi-Drug Resistant Organisms: None Reported Past Surgical History: Bladder Surgery, Section, Cholecystectomy, Hernia Repair, Hysterectomy, Joint Replacement, Orthopedic Surgery, Tonsillectomy Additional Past Surgical History / Comment(s): Bilateral hip replacements, total left hip revision, left knee arthroscopy X2, EGD, bladder suspension, thyroid nodule biopsy-negative, PAIN CLINIC INJECTION, bronchoscopy, left lower lobe wedge resection. Past Anesthesia/Blood Transfusion Reactions: No Reported Reaction Past Psychological History: Anxiety, Depression Smoking Status: Current every day smoker Past Alcohol Use History: None Reported Additional Past Alcohol Use History / Comment(s): Smokes 1 PPD, started at age 20. Past Drug Use History: None Reported - Past Family History Mother Family Medical History: Cancer Additional Family Medical History / Comment(s): Pt does not recall type of cancer. Sister(s) Family Medical History: Cancer Father Family Medical History: No Reported History, Diabetes Mellitus, Myocardial Infarction (DC) Additional Family Medical History / Comment(s): Father was healthy until the time of his at age 85 yrs. He did have history of diabetes and myocardial infarction. Patient is 2 brothers and 2 sisters with no major medical problems. Brother(s) Family Medical History: Cancer Additional Family Medical History / Comment(s): KIDNEY CANCER. Medications and Allergies Home Medications Medication Instructions Recorded Confirmed Type Sertraline [Zoloft] 100 mg PO QAM 08/30/22 07/14/23 History Aspirin 81 mg PO DAILY 11/25/22 07/14/23 History Ascorbic Acid [Vitamin C] 500 mg PO DAILY 01/24/23 07/14/23 History Cholecalciferol [Vitamin D3 (25 25 mcg PO DAILY 01/24/23 07/14/23 History Mcg = 1000 Iu)] Cyanocobalamin (Vitamin B-12) 1,000 mcg PO DAILY 01/24/23 07/14/23 History [Vitamin B-12] Zinc Gluconate [Zinc] 50 mg PO DAILY 01/24/23 07/14/23 History Atorvastatin [Lipitor] 20 mg PO HS 07/14/23 07/14/23 History Allergies Allergy/AdvReac Type Severity Reaction Status Date / Time codeine AdvReac Nausea & Verified 07/14/23 15:27 Vomiting morphine AdvReac Nausea & Verified 07/14/23 15:27 Vomiting Physical Examination Osteopathic Statement: *. No significant issues noted on an osteopathic structural exam other than those noted in the History and Physical/Consult.
[~2023-07-19 08:02] MED LIST changes: +MIDAZOLAM 2 MG/2 ML VIAL IV PRN; +Pre Op ABX Message 1 EACH MISC MISCELLANE ONE; -droPERidol 5 MG/2 ML VIAL IVP ONE
[2023-07-19] MEDS ORDERED: MIDAZOLAM 2 MG/2 ML VIAL ONE (09:21)
[2023-07-19] MEDS ORDERED: PROPOFOL 10 MG/ML 20 ML VIAL IV ONE (09:21)
[2023-07-19] MEDS ORDERED: LIDOCAINE 1% INJ 10MG/ML (20 ML MDV) ONE (09:21)
[2023-07-19] MEDS ORDERED: fentaNYL (PF) 50 MCG/ML 2 ML AMP ONE (09:21)
[2023-07-19] MEDS ORDERED: BUPIVACAINE (PF) 0.5% 30 ML VIAL SQ ONE (09:33)
[2023-07-19] MEDS ORDERED: LIDOCAINE 1% INJ 10MG/ML (20 ML MDV) SQ ONE (09:33)
--- NOTE | 2023-07-19 09:59 | P.OP ---
Date of Procedure: 07/19/23 Preoperative Diagnosis: Right DeQuervains tenosynovitis Postoperative Diagnosis: Right DeQuervains tenosynovitis Procedure(s) Performed: Right first dorsal compartment release Anesthesia: MAC Surgeon: Vladimir Rodas Estimated Blood Loss (ml): 0 Pathology: none sent Condition: stable Disposition: PACU Description of Procedure: This is a 67 year old female who presents today for a right first dorsal compartment release after having failed conservative treatment. Risks and benefits of surgery were discussed with the patient including bleeding, damage to surrounding tissue, infection, need for further surgery as well as risks of anesthesia including pulmonary embolism and even and the patient wished to proceed with surgical intervention. The patients was seen in the pre-operative area by myself. Consent and H&P were completed and updated. The correct extremity was marked in the pre-operative area by myself and all other questions were answered. Operative Narrative: The patient was brought to the operating room by the department of anest hurley. They remained on the portable stretcher and a rolling hand table was brought to the side of the operative extremity. The patient was then drifted off to sleep by the department of anesthesia. A nonsterile tourniquet was then applied to the operative extremity and the right upper extremity was then prepped and draped in normal sterile fashion. Pre-operative time out was performed indicating the correct patient, procedure and laterality. All in the room agreed. MAC anesthesia was utilized and a 50:50 mixture of 1% Lidocaine and 0.5% bupivacaine was injected into the subcutaneous tissues of the radial wrist skin, 5ccs total. Pre-operative antibiotics were given prior to skin incision. The operative extremity was the exsanguinated with an esmarch bandage and the tourniquet was inflated to 250mmHg. 15 blade scalpel was used to make a horizontal skin incision centered over the first dorsal compartment of the right wrist. Blunt dissection was taken down to the proximal edge of the first dorsal compartment while taking care to identify and protect branches of the superficial radial sensory nerve. The first dorsal compartment was released in its entirety from proximal to distal. APL and EPB tendons were identified and they were both traveling in the same compartment together and now tension free. Skin closure was performed with 4-0 Monocryl suture, Mastisol and steri strips. Sterile soft dressing was applied consisting of 4x4's cast padding and an kinza wrap. The patient was then woken by the department of anesthesia and transferred to PACU in stable condition. Vladimir Rodas D.O. Orthopedic Hand/Upper Extremity Surgeon
[2023-07-19 10:50] VITALS: BP 110/67; PULSE 80; RESP 20
== END 2023-07-19 10:30 | disposition home or self-care (01) ==
LOC: OR 08:02
PROVIDERS: ATTEND Orthopaedic Surgery Hand Surgery
DX: M65.4 Radial styloid tenosynovitis [de Quervain] (principal); I48.91 Unspecified atrial fibrillation; J44.9 Chronic obstructive pulmonary disease, unspecified; E78.5 Hyperlipidemia, unspecified; K21.9 Gastro-esophageal reflux disease without esophagitis; M19.90 Unspecified osteoarthritis, unspecified site; G47.33 Obstructive sleep apnea (adult) (pediatric); F17.210 Nicotine dependence, cigarettes, uncomplicated; Z85.118 Personal history of other malignant neoplasm of bronchus and lung; Z86.16 Personal history of COVID-19; Z88.5 Allergy status to narcotic agent
CPT/HCPCS: 25000; J2250; J1100; J2405; J2001; J3010; J2704; J0665

== ENCOUNTER → 2023-08-01 | Outpatient (CLI) | payer MEDICARE ==
[2023-08-01 13:41] LABS: African American GFR (CKD) >90 (>60 ml/min/1.73 sqM); Blood Urea Nitrogen 16 mg/dL (7-17); Non-African American GFR(CKD) >90 (>60 ml/min/1.73 sqM)
--- NOTE | 2023-08-01 14:41 | CT ---
EXAMINATION TYPE: CT chest w con DATE OF EXAM: 08/01/2023 COMPARISON: 423 HISTORY: f/u lung ca CT DLP: 225.1 mGycm Automated exposure control for dose reduction was used. CONTRAST: CT scan of the chest is performed with IV Contrast, patient injected with 100 mL of Isovue 300. FINDINGS: LUNGS: Postoperative resection of left lower lobe pulmonary nodule. Surgical clips in place. No new n odules are seen. No recurrent nodule. Hyperinflation compatible COPD. The lungs are grossly clear, th ere is no concerning parenchymal mass or nodule identified. There is no pleural effusion or pneumot horax seen. The tracheobronchial tree is patent. MEDIASTINUM: There are no greater than 1 cm hilar or mediastinal lymph nodes. No pericardial effusi on is seen. Thoracic aorta is of normal caliber. The heart is not enlarged. UPPER ABDOMEN: No significant abnormality appreciated. OTHER: No additional significant abnormality is seen. IMPRESSION: Postoperative resection of left lower lobe pulmonary nodule. Surgical clips in place. No new nodules are seen. No recurrent nodule.
== END | disposition home or self-care (01) ==
LOC: RADCTMAIN 12:52
PROVIDERS: ATTEND Internal Medicine Critical Care Medicine
DX: C34.32 Malignant neoplasm of lower lobe, left bronchus or lung (principal); R91.1 Solitary pulmonary nodule
CPT/HCPCS: 82565; 84520; 71260; 36415; Q9967

== ENCOUNTER 2023-09-27 09:02 | Day surgery (SDC) | payer MEDICARE, OTHER ==
[2023-09-21 09:12] VITALS: BMI 25.0
--- NOTE | 2023-09-26 11:32 | P.HPOR ---
History of Present Illness H&P Date: 09/26/23 ubjective: This is a 68 year old female that presents today for a post-operative visit after undergoing right first dorsal compartment release on 07/19/23. She notes some mild soreness in the wrist but notes improvement of her symptoms. She states her left thumb arthritis has been very painful over the past several months since her initial evaluation and she no longer can pinch, grasp or move the thumb without severe pain at the base. She has tried NSAIDs and bracing with no relief. Physical Examination: RUE: AIN/PIN/Radial/Ulnar/Median motor intact. Radial/Ulnar/Median SILT. 2+/4 Radial/Ulnar pulses palpated. LUE: AIN/PIN/Radial/Ulnar/Median motor intact. Radial/Ulnar/Median SILT. 2+/4 Radial/Ulnar pulses palpated. Positive CMC grind, negative Finkelsteins. Imaging: X-Rays of the left hand 3V reviewed from prior office visit demonstrate severe degenerative changes at the left thumb CMC joint with osteophyte formation. Impression: 1.) S/P Right first dorsal compartment release 2.) Left thumb CMC arthritis, severe. Plan: Diagnosis and treatment options were discussed with the patient. She wishes to proceed with a left thumb CMC basilar joint arthroplasty after having failed conservative treatment for her left thumb CMC arthritis. Risks and benefits of surgery including bleeding, infection, damage to surrounding tissue, need for fu rther surgery, residual numbness were discussed and the patient wished to go forward with surgery. She is scheduled for a left thumb CMC basilar joint arthroplasty. The patient is agreeable with this plan. CC: Dr Tiffanie Rodas DO Orthopedic Hand/Upper Extremity Surgeon Past Medical History Past Medical History: Atrial Fibrillation, Cancer, COPD, Hyperlipidemia, Memory Impairment, Musculoskeletal Disorder, Osteoarthritis (OA), Pneumonia, Sleep Apnea/CPAP/BIPAP Additional Past Medical History / Comment(s): Hx Blood clot bottom left foot, does not use CPAP or BIPAP, urinary leakage, DDD, had hospitalization in August 2022 for covid-had brief episode of a-fib during hospitalization-no further problems or tx. LUNG CANCER History of Any Multi-Drug Resistant Organisms: None Reported Past Surgical History: Bladder Surgery, Section, Cholecystectomy, Hernia Repair, Hysterectomy, Joint Replacement, Orthopedic Surgery, Tonsillectomy Additional Past Surgical History / Comment(s): Total Right hip arthroplasty, Left knee arthroscopy x 2, EGD, Bladder suspension. TOTAL LT HIP 05/08/18, total left hip revision 09-11-2018, thyroid nodule biopsy-neg , PAIN CLINIC INJECTION, bronchoscopy Past Anesthesia/Blood Transfusion Reactions: No Reported Reaction Past Psychological History: Anxiety, Depression Additional Psychological History / Comment(s): . Smoking Status: Current every day smoker Past Alcohol Use History: None Reported Additional Past Alcohol Use History / Comment(s): down to a little over 1/2ppd from 1 PPD,started smoking at age 20 Past Drug Use History: None Reported - Past Family History Mother Family Medical History: Cancer Additional Family Medical History / Comment(s): Pt does not recall type of cancer. Sister(s) Family Medical History: Cancer Father Family Medical History: No Reported History, Diabetes Mellitus, Myocardial Infarction (IA) Additional Family Medical History / Comment(s): Father was healthy until the time of his at age 85 yrs. He did have history of diabetes and myocardial infarction. Patient is 2 brothers and 2 sisters with no major medical problems. Brother(s) Family Medical History: Cancer Additional Family Medical History / Comment(s): KIDNEY CANCER. Medications and Allergies Home Medications Medication Instructions Recorded Confirmed Type Sertraline [Zoloft] 100 mg PO QAM 08/30/22 09/21/23 History Aspirin 81 mg PO DAILY 11/25/22 09/21/23 History Ascorbic Acid [Vitamin C] 500 mg PO DAILY 01/24/23 09/21/23 History Cholecalciferol [Vitamin D3 (25 25 mcg PO DAILY 01/24/23 09/21/23 History Mcg = 1000 Iu)] Cyanocobalamin (Vitamin B-12) 1,000 mcg PO DAILY 01/24/23 09/21/23 History [Vitamin B-12] Zinc Gluconate [Zinc] 50 mg PO DAILY 01/24/23 09/21/23 History Atorvastatin [Lipitor] 20 mg PO HS 07/14/23 09/21/23 History Allergies Allergy/AdvReac Type Severity Reaction Status Date / Time codeine AdvReac Nausea & Verified 09/21/23 08:55 Vomiting morphine AdvReac Nausea & Verified 09/21/23 08:55 Vomiting Physical Examination Osteopathic Statement: *. No significant issues noted on an osteopathic structural exam other than those noted in the History and Physical/Consult.
[~2023-09-27 09:02] MED LIST changes: -HYDROmorphone 0.5 MG/0.5 ML SYRINGE IVP PRN; -LIDOCAINE 1% (10MG/ML) FOR IV START INTRADERMA PRN; -MIDAZOLAM 2 MG/2 ML VIAL IV PRN; -Pre Op ABX Message 1 EACH MISC MISCELLANE ONE
[2023-09-27] MEDS ORDERED: LIDOCAINE 1% (10MG/ML) FOR IV START INTRADERMA ONE (09:45)
[2023-09-27 10:01] VITALS: TEMP 97.5
[2023-09-27] MEDS ORDERED: MIDAZOLAM 2 MG/2 ML VIAL IVP ONE (10:05)
[2023-09-27] MEDS ORDERED: DEXAMETHASONE SOD PHOSPHATE 4 MG/ML 1 ML VIAL ONE (12:51)
[2023-09-27] MEDS ORDERED: PROPOFOL 10 MG/ML 20 ML VIAL IV ONE (12:51)
[2023-09-27] MEDS ORDERED: LIDOCAINE 1% INJ 10MG/ML (20 ML MDV) ONE (12:51)
[2023-09-27] MEDS ORDERED: fentaNYL (PF) 50 MCG/ML 2 ML AMP ONE (12:51)
[2023-09-27] MEDS ORDERED: KETOROLAC 30 MG/ML 1 ML VIAL ONE (12:51)
[2023-09-27] MEDS ORDERED: MIDAZOLAM 2 MG/2 ML VIAL ONE (12:51)
[2023-09-27] MEDS ORDERED: ROPIVACAINE 5 MG/ML 30 ML VIAL ONE (12:51)
--- NOTE | 2023-09-27 13:42 | P.OP ---
Date of Procedure: 09/27/23 Preoperative Diagnosis: Left thumb CMC arthritis Postoperative Diagnosis: Left thumb CMC arthritis Procedure(s) Performed: Left thumb CMC basilar joint arthroplasty Implants: Arthrex 3.5mm Swivel Lock suture anchor x 2 Anesthesia: [facility] regional Surgeon: Vladimir Rodas Registered Nurse Supervisor #1: Colin Rosado Estimated Blood Loss (ml): 0 Pathology: none sent Condition: stable Disposition: PACU Description of Procedure: This is a 68 year old female who presents today for a left thumb CMC basal joint arthroplasty after having failed conservative treatment for severe thumb CMC arthritis. Risks and benefits of surgery were discussed with the patient including bleeding, damage to surrounding tissue, infection, need for further surgery as well as risks of anesthesia including pulmonary embolism and even and the patient wished to proceed with surgical intervention. The patients was seen in the pre-operative area by myself. Consent and H&P were completed and updated. The correct extremity was marked in the pre-operative area by myself and all other questions were answered. Patient received a upper extremity nerve block by the department of anesthesia. He then was brought to the operating room by the department of anesthesia. They remained on the portable stretcher and a rolling hand table was brought to the side of the operative extremity. The patient was then drifted off to sleep by the department of anesthesia. A nonsterile tourniquet was then applied to the operative extremity and the left upper extremity was then prepped and draped in normal sterile fashion. Pre-operative time out was performed indicating the correct patient, procedure and laterality. All in the room agreed. Pre-operative antibiotics were given prior to skin incision. The operative extremity was the exsanguinated with an esmarch bandage and the tourniquet was inflated to 250mmHg. Longitudinal incision was made over the left thumb CMC joint with a 15 blade scalpel. Blunt dissection was taken down to subcutaneous tissues with littler scissors taking care to preserve the branches of the superficial radial nerve. Dorsal radial artery was identified proximally in the incision and protected throughout the procedure. Scalpel was then made to incise the thumb CMC joint creating full thickness flaps off of the proximal metacarpal base and trapezium, this plane was further developed with a periosteal elevator. Elevator was then utilized to identify the thumb CMC joint and scaphotrapezial joint. McGlamory elevator was then used to excise the trapezium whole. Guidewire was then introduced down to the laser line at the base of the first metacarpal through the same incision and was over drilled. Another guidewire was then inserted at the radial base of the first metacarpal near the Insertion of APL and was then over drilled with normal drill guide. A 3.5mm Arthrex SwiveLock anchor was then inserted into the base of the first metacarpal. While holding the thumb in slight traction and full adduction, another 3.5mm Arthrex SwiveLock anchor was inserted into the base of the second metacarpal and the two strands of fibertape were centered across the first metacarpal base to create a sling around the base suspending the thumb metacarpal, good alberto purchase was appreciated. The thumb was successfully suspended and full ROM was achieved passively. Suture ends were cut and skin was closed with several interrupted 4-0 Monocryl sutures followed by a running 4-0 Monocryl stitch. Sterile dressing consisting of steri strips followed by 4x4s cast padding, and a thumb spica plaster splint was applied. Tourniquet was let down and the hand had brisk cap refill and normal perfusion immediately. The patient was then woken by the department of anesthesia and transferred to PACU in stable condition. Colin LONDON was present for the case and assisted in major portions of procedure and protection of vital neurovascular structures. Vladimir Rodas D.O. Orthopedic Hand/Upper Extremity Surgeon
[2023-09-27] MEDS: HYDROmorphone 0.5 MG/0.5 ML SYRINGE IVP PRN ×2 (14:15→14:39)
[2023-09-27 15:19] VITALS: RESP 16
[2023-09-27 15:48] VITALS: PULSE 54
--- NOTE | 2023-09-27 16:02 | P.ANPRN ---
Procedure Note - Anesthesia - Nerve Block Performed Left Supraclavicular Single Time Out Performed: Yes Date of Procedure: 09/27/23 Procedure Start Time: 10:05 Procedure Stop Time: 10:09 Location of Patient: PreOp Indication: Acute Post-Operative Pain, Requested by Surgeon Sedation Type: Sedate with meaningful contact maintained Preparation: Sterile Prep Position: Supine Needle Types: Pajunk Needle Gauge: 21 Ultrasound used to visualize needle placement: Yes Ultrasound used to observe medication spread: Yes Blood Aspirated: No Pain Paresthesia on Injection Noted: No Resistance on Injection: Normal Image Stored and Saved: Yes Events: Uneventful and Well Tolerated (Ropivacaine 0.5% 25 cc plus dexamethasone 4 mg)
[2023-09-27 16:14] VITALS: BP 95/61
== END 2023-09-27 16:12 | disposition home or self-care (01) ==
LOC: OR 09:02
PROVIDERS: ATTEND Orthopaedic Surgery Hand Surgery
DX: M18.12 Unilateral primary osteoarthritis of first carpometacarpal joint, left hand (principal); I48.91 Unspecified atrial fibrillation; J44.9 Chronic obstructive pulmonary disease, unspecified; E78.5 Hyperlipidemia, unspecified; G47.30 Sleep apnea, unspecified; F17.210 Nicotine dependence, cigarettes, uncomplicated; J18.9 Pneumonia, unspecified organism; F32.A Depression, unspecified; F41.9 Anxiety disorder, unspecified; Z85.118 Personal history of other malignant neoplasm of bronchus and lung; Z90.49 Acquired absence of other specified parts of digestive tract; Z90.710 Acquired absence of both cervix and uterus; Z96.641 Presence of right artificial hip joint; Z98.890 Other specified postprocedural states; Z82.49 Family history of ischemic heart disease and other diseases of the circulatory system; Z83.3 Family history of diabetes mellitus; Z80.51 Family history of malignant neoplasm of kidney; Z79.82 Long term (current) use of aspirin; Z79.899 Other long term (current) drug therapy; Z88.5 Allergy status to narcotic agent; Z96.651 Presence of right artificial knee joint
CPT/HCPCS: 25447; J2250; J1100; J0690; J2405; J1170; 64415

== ENCOUNTER → 2023-11-27 | Outpatient (CLI) | payer MEDICARE, OTHER | END | disposition home or self-care (01) | LOC: LABWHC1 09:22 | PROVIDERS: ATTEND Family Medicine | DX: I48.19 Other persistent atrial fibrillation (principal); E78.2 Mixed hyperlipidemia; R00.1 Bradycardia, unspecified | CPT/HCPCS: 36415; 93005 ==

== ENCOUNTER → 2024-02-05 | Outpatient (CLI) | payer MEDICARE, OTHER ==
--- NOTE | 2024-02-05 21:46 | CT ---
EXAMINATION TYPE: CT chest wo con DATE OF EXAM: 02/05/2024 COMPARISON: 12/29/2022 HISTORY: LUNG CA CT DLP: 413 mGycm. Automated Exposure Control for Dose Reduction was Utilized. TECHNIQUE: CT scan of the thorax is performed without IV contrast. FINDINGS: There are marked emphysematous changes. The previously described spiculated mass in the left lower lobe abutting major fissure has decreased markedly in the interval. The nodule associated with the cyst in the lower lobe has decreased in the interval significantly as well. Multiple new satellite nodules have formed in the left upper lobe and in the lower lobe. The left upp er lobe nodule 6.4 mm. The largest nodule in the left lower lobe is approximately 6 mm. There is a 2 to 3 mm nodule in the right upper lobe. There is a 2 cm nodule in the left lobe of the thyroid gland. The great vessels with chest anomaly is no mediastinal, hilar or axillary adenopathy. Limited scanning through the upper abdomen reveals no gross abnormality no focal osseous lesions are seen. IMPRESSION: 1. Significant interval reduction in the primary left lower lobe spiculated mass and nodule associate d with a cyst in the right lower lobe. 2. Interval development of multiple satellite nodules in the left upper and lower lobe and single nod ule in the right upper lobe. 3. Marked emphysematous changes. 4. No acute cardiopulmonary disease. Follow-up recommendations for incidental pulmonary nodules are per [employer]?s [employer] or [employer].
== END | disposition home or self-care (01) ==
LOC: RADCTMAIN 16:25
PROVIDERS: ATTEND Internal Medicine Hematology & Oncology
DX: C34.32 Malignant neoplasm of lower lobe, left bronchus or lung (principal); J98.4 Other disorders of lung; J43.9 Emphysema, unspecified; D75.1 Secondary polycythemia; G47.33 Obstructive sleep apnea (adult) (pediatric); I10 Essential (primary) hypertension; R91.8 Other nonspecific abnormal finding of lung field
CPT/HCPCS: 71250

== ENCOUNTER → 2024-03-11 | Outpatient (CLI) | payer MEDICARE, OTHER ==
--- NOTE | 2024-03-12 13:47 | P.PCN ---
Date of Procedure: 03/11/24 Operative Findings: Home sleep study testing Date of service 03/11/2024 History This is a 68-year-old female patient with previous history of obstructive sleep apnea and the patient not been compliant with CPAP therapy. The patient had mild disease based on a sleep study report done 2014. At that time, her AHI was 10. She was given a CPAP machine at a pressure of 8 cm of water. A repeat home sleep study was ordered to evaluate the presence of sleep apnea. He has moderately severe COPD with an FEV1 of 66% of predicted. She has also history of stage I adenocarcinoma and the patient has undergone left lower lobectomy. Pertinent physical findings Height is 5 feet and 7 inches, weight is 152 pounds with a body mass index of 23.8 Technical description The HandInScan system was used to complete this home sleep study. This is a type III home sleep study. The total recording duration was 8 hours and 24 minutes. The study started at 9:06 PM and the study ended at 5:31 AM. There was a total of 8 hours and 12 minutes of flow monitoring and 8 hours and 12 minutes of oxygen saturation monitoring. As such, this is an adequate study. Results Respiratory analysis showed a total of 3 obstructive apneas and 14 obstructive hypopneas. The resulting AHI was at 2.1 Oxygenation analysis The patient encountered a total of 15 episodes of oxygen desaturation with a pulse ox dropping more than 40%. Average pulse ox during sleep was 91% and the patient spent approximately 2 minutes of sleep time below pulse ox of 89%. No significant oxygen desaturations were encountered Cardiac summary The average heart rate is 54 with a minimum heart rate of 44 and a maximum heart rate of 133 Assessment Primary snoring, no evidence of any significant sleep breathing disorder. COPD History of lung cancer Plan No need for CPAP therapy. CPAP therapy can be discontinued.
== END ==
LOC: 3 N SLEEP 12:54
PROVIDERS: ATTEND Internal Medicine Critical Care Medicine
DX: R06.83 Snoring (principal); G47.33 Obstructive sleep apnea (adult) (pediatric); J44.9 Chronic obstructive pulmonary disease, unspecified; F17.200 Nicotine dependence, unspecified, uncomplicated; Z85.118 Personal history of other malignant neoplasm of bronchus and lung; Z88.5 Allergy status to narcotic agent

== ENCOUNTER → 2024-06-17 | Outpatient (CLI) | payer MEDICARE, OTHER ==
[2024-06-17 06:58] LABS: African American GFR (CKD) 85 (>60 ml/min/1.73 sqM); Blood Urea Nitrogen 21 mg/dL (7-17); Non-African American GFR(CKD) 74 (>60 ml/min/1.73 sqM)
--- NOTE | 2024-06-17 09:17 | CT ---
EXAMINATION TYPE: CT abdomen pelvis w con CT DLP: 1113.32 mGycm, Automated exposure control for dose reduction was used. DATE OF EXAM: 06/17/2024 8:09 AM COMPARISON: PET CT 12/10/2022 CLINICAL INDICATION:Female, 68 years old with history of R10.13 EPIGASTRIC PAIN R19.4 K21.9 R53.83; a bd pain TECHNIQUE: Standard CT of the abdomen and pelvis following the administration of 100 cc of Isovue 3 00 IV contrast material and oral contrast. Coronal and sagittal reformats were performed. FINDINGS: LOWER CHEST: Please see dedicated CT chest for findings ABDOMEN LIVER: Unremarkable GALLBLADDER AND BILE DUCTS: The gallbladder is surgically absent. No biliary ductal dilatation. PANCREAS: Unremarkable. SPLEEN: Stable peripherally calcified 2.3 cm probable pseudocyst. ADRENAL GLANDS: Unremarkable. KIDNEYS AND URETERS: No evidence of hydronephrosis . Contrast demonstrated within both collecting sys tems which limits evaluation for renal calculi. No suspicious lesion identified. PELVIS BLADDER: Poorly visualized due to streak artifact from hip prosthesis. REPRODUCTIVE: Poorly visualized due to streak artifact from hip prosthesis. ABDOMEN & PELVIS STOMACH AND BOWEL: Stomach and duodenum are unremarkable. Moderate distal colonic stool burden. No fo jasmin bowel wall thickening or surrounding inflammatory changes. Enteric contrast is reaching the ileoc ecal junction. No evidence of bowel obstruction. PERITONEUM: No evidence of pneumoperitoneum or free fluid. VASCULATURE: Mild atherosclerotic calcifications are present throughout the abdominal aorta and its b ranches. No evidence of aortic aneurysm. MUSCULOSKELETAL: No acute osseous abnormalities. Postsurgical changes from bilateral total hip arthro plasty. This limits evaluation due to streak artifact. No aggressive osseous lesion. Multilevel degen erative disc disease. LYMPH NODES: No evidence for lymphadenopathy. SOFT TISSUE/ABDOMINAL WALL: Unremarkable IMPRESSION: 1. No CT evidence for acute abdominal/pelvic process. 2. No suspicious lesions/adenopathy to suggest metastasis. 3. Moderate distal colonic stool burden. [facility], , 06/17/2024 9:15 AM
== END | disposition home or self-care (01) ==
LOC: RADCTMAIN 06:16
PROVIDERS: ATTEND Family Medicine
CPT/HCPCS: 36415; 74177; 82565; 84520

== ENCOUNTER → 2024-06-17 | Outpatient (CLI) | payer MEDICARE, OTHER ==
--- NOTE | 2024-06-17 09:10 | CT ---
EXAMINATION TYPE: CT chest w con CT DLP: 442.35 mGycm, Automated exposure control for dose reduction was used. DATE OF EXAM: 06/17/2024 8:09 AM COMPARISON: CT chest 02/05/2024, 08/01/2023, 12/29/2022, PET CT 12/10/2022 CLINICAL INDICATION:Female, 68 years old with history of C34.32 LUNG CA; PHH, lung ca TECHNIQUE: Multiple axial images were obtained through the chest following the administration of 100 cc of Isovue 300. . Coronal and sagittal reformats reviewed. FINDINGS: LUNGS/ PLEURA: No pleural effusion, pneumothorax, or focal consolidation. Postsurgical changes from l eft lower lobe lobectomy/wedge resection. Suture line in the pleural surgical margins identified. Inc reased size and number of pulmonary nodules within the left mid and lower lung with exams including a left lower lobe 6.6 mm pulmonary nodule (series 5 image 37), previously 5.1 mm. Left lower lobe 6.7 mm pulmonary nodule (series 5, image 32), previously 5.4 mm. Mild centrilobular emphysematous changes . Similar cyst within the left lower lobe with adjacent nodule measuring up to 4 mm (series 5, image 46). Additional scattered stable pulmonary nodules including a 2 mm right mid lung pulmonary nodule (series 5 image image 29). AIRWAY: Patent and unremarkable.. HEART: Size within normal limits. No pericardial effusion. MEDIASTINUM: No enlarged lymph nodes greater than 1 cm short axis. VASCULATURE: No aortic aneurysm. MUSCULOSKELETAL: No acute osseous abnormalities no aggressive osseous lesion. Multilevel degenerative disc disease. SOFT TISSUES/LYMPH NODES: Unremarkable. LOWER NECK: Heterogenous appearance to the thyroid gland with left thyroid lobe greater than right in size. Patient's neck is increased streak artifact which limits evaluation of the thyroid gland. UPPER ABDOMEN: Stable peripherally calcified 2.3 cm lesion within the spleen. Probable pseudocyst. IMPRESSION: 1. Postsurgical changes from left lower lobe lobectomy/wedge resection with increased size and number pulmonary nodules within the left mid and lower lung measuring up to 6.6 mm. Additional other scatte red nodules are stable in size. Findings raise suspicion for recurrence/metastasis. Nodules are below the sensitivity for PET/CT. 2. Mild COPD changes. [facility], , 06/17/2024 9:08 AM
== END | disposition home or self-care (01) ==
LOC: RADCTMAIN 06:20
PROVIDERS: ATTEND Internal Medicine Hematology & Oncology
CPT/HCPCS: 71260

== ENCOUNTER 2024-08-16 08:41 | Day surgery (SDC) | payer MEDICARE, OTHER ==
[2024-08-15 13:11] VITALS: BMI 24.3
[2024-08-16] MEDS: IV FLUID CONTINUATION 1,000 ML IV ONE (08:59)
[2024-08-16 09:11] VITALS: TEMP 97.3
[2024-08-16] MEDS: LACTATED RINGERS 1,000 ML IV SCH (09:16)
[2024-08-16] MEDS ORDERED: PROPOFOL 10 MG/ML 20 ML VIAL IV ONE (09:56)
[2024-08-16] MEDS ORDERED: LIDOCAINE 1% INJ 10MG/ML (20 ML MDV) ONE (09:56)
--- NOTE | 2024-08-16 10:04 | P.PCN ---
Date of Procedure: 08/16/24 Procedure(s) Performed: BRIEF HISTORY: Patient is a 69-year-old, pleasant, white female scheduled an upper endoscopy as a part of evaluation of longstanding history of GERD.. PROCEDURE PERFORMED: Esophagogastroduodenoscopy with biopsy. PREOPERATIVE DIAGNOSIS: GERD. IV sedation per anesthesia. PROCEDURE: After informed consent was obtained, the patient was brought into the endoscopy unit. IV sedation was administered by Anesthesia under continuous monitoring. Initially the Olympus GIF-140 video endoscope was inserted into the mouth. Esophagus intubated without any difficulty. It was gradually advanced into the stomach and duodenum and carefully examined. The bulb and the second part of the duodenum appeared normal. The scope at this time was withdrawn to the stomach, adequately insufflated with air, and upon careful examination, mucosa of the antrum had linear areas of erythema consistent with gastritis and biopsies were done from this area. Mucosa of the, body, cardia and the fundus appeared normal. The scope was then withdrawn into the esophagus. The GE junction was located at 39 cm from the incisors. The esophagus appeared normal. There were no erosions or ulcerations seen and the patient tolerated the procedure well. IMPRESSION: 1. Mild antral gastritis. 2. No evidence of esophagitis or Wharton's esophagus. RECOMMENDATIONS: The findings of this examination were discussed with the patient as well as her family. With the biopsy results. She was advised to use [id number] H2 blockers as needed for reflux symptoms..
[2024-08-16 10:39] VITALS: BP 99/55; PULSE 56; RESP 16
== END 2024-08-16 10:58 | disposition home or self-care (01) ==
LOC: ORWHC2ENDO 08:41
PROVIDERS: ATTEND Internal Medicine Gastroenterology
DX: K29.50 Unspecified chronic gastritis without bleeding (principal); K21.9 Gastro-esophageal reflux disease without esophagitis; K31.9 Disease of stomach and duodenum, unspecified; I48.91 Unspecified atrial fibrillation; G47.33 Obstructive sleep apnea (adult) (pediatric); J44.9 Chronic obstructive pulmonary disease, unspecified; F03.90 Unspecified dementia, unspecified severity, without behavioral disturbance, psychotic disturbance, mood disturbance, and anxiety; Z79.899 Other long term (current) drug therapy; Z88.5 Allergy status to narcotic agent; Z90.710 Acquired absence of both cervix and uterus; Z90.49 Acquired absence of other specified parts of digestive tract; Z98.890 Other specified postprocedural states
CPT/HCPCS: 88305; 43239; J2003; J2704

== ENCOUNTER → 2024-12-20 | Outpatient (CLI) | payer MEDICARE, OTHER ==
[2024-12-20 10:27] LABS: African American GFR (CKD) >90 (>60 ml/min/1.73 sqM); Blood Urea Nitrogen 15 mg/dL (7-17); Non-African American GFR(CKD) 83 (>60 ml/min/1.73 sqM)
--- NOTE | 2024-12-20 15:15 | CT ---
EXAMINATION TYPE: CT chest wo con CT DLP: 355 mGycm, Automated exposure control for dose reduction was used. DATE OF EXAM: 12/20/2024 11:23 AM COMPARISON: Multiple CT chest with most recent 06/17/2024 CLINICAL INDICATION:Female, 69 years old with history of C34.32 LUNG CX; PHH, HX OF LUNG CA TECHNIQUE: Multiple axial images were obtained through the chest without IV contrast. Lack of IV or o ral contrast limits evaluation of solid and hollow organ viscera. . Coronal and sagittal reformats re viewed. FINDINGS: LUNGS/ PLEURA: No pleural effusion, pneumothorax, or focal consolidation. Postsurgical changes from l eft lower lobe lobectomy/wedge resection. Suture line in the pleural surgical margins identified. The re are several solid pulmonary nodules within the left mid to lower lung redemonstrated. Majority of these nodules are solid in appearance with some demonstrating increased size. Examples include a 1.2 cm nodule near the suture (series 4, 36, previously measured 0.7 cm another example is a left lower l obe 0.8 cm pulmonary nodule, previously 0.5 cm (series 4, image 40). Mild centrilobular emphysematous changes. Additional few scattered small groundglass pulmonary nodules are stable within the right m iddle lobe and lingula.. AIRWAY: Patent and unremarkable. HEART: Size within normal limits. No pericardial effusion. MEDIASTINUM: No enlarged lymph nodes greater than 1 cm short axis. The stable prominent prevascular s pace lymph nodes. VASCULATURE: No aortic aneurysm. MUSCULOSKELETAL: Diffuse bone demineralization. No acute osseous abnormalities. No aggressive osseous lesion. Multilevel degenerative disc disease. SOFT TISSUES/LYMPH NODES: Decreased size of mildly prominent left axillary lymph nodes measuring up t o 5 mm short axis, previously 7 mm. LOWER NECK: Heterogenous appearance to the thyroid gland with left thyroid lobe greater than right in size. Patient's necklace creates streak artifact which limits evaluation of the thyroid gland. UPPER ABDOMEN: Stable peripherally calcified 2.3 cm lesion within the spleen. Probable pseudocyst. Ga llbladder is not visualized and appears to be surgically absent. IMPRESSION: 1. Postsurgical changes from left lower lobe lobectomy/wedge resection with increased size and more s olid-appearing pulmonary nodules within the left mid and lower lung. Additional other scattered nodul es are stable in size. Findings raise suspicion for recurrence/metastasis. Recommend further evaluati on with PET/CT. 2. Mild COPD changes. [facility], , 12/20/2024 3:12 PM
== END | disposition home or self-care (01) ==
LOC: RADCTMAIN 09:26
PROVIDERS: ATTEND Internal Medicine Hematology & Oncology
DX: Z03.89 Encounter for observation for other suspected diseases and conditions ruled out (principal); C34.32 Malignant neoplasm of lower lobe, left bronchus or lung; J44.9 Chronic obstructive pulmonary disease, unspecified; D75.1 Secondary polycythemia; I10 Essential (primary) hypertension; R91.1 Solitary pulmonary nodule; G47.33 Obstructive sleep apnea (adult) (pediatric); E78.5 Hyperlipidemia, unspecified; Z98.890 Other specified postprocedural states
CPT/HCPCS: 36415; 71250; 82565; 84520

== ENCOUNTER → 2025-01-01 | Outpatient (CLI) | payer MEDICARE, OTHER ==
--- NOTE | 2025-01-03 09:47 | MR ---
INDICATION: Patient age:Female; 69 years old; Reason for study: M47.22,G95.9,M54.2; LOCATED WITHIN [facility]. COMPARISON: MR cervical spine 05/28/2021, cervical spine radiograph 12/23/2024. TECHNIQUE: Multi planar, multi sequence imaging was performed of the cervical spine. No Gadolinium wa s given. FINDINGS: Alignment: The cervical vertebral bodies have preserved heights. Alignment is within normal limits gi gabrilele patient positioning. Bones: Multilevel type II Modic changes. Multilevel anterior osteophytosis. Cord: The spinal cord is unremarkable with regards to their signal intensity and morphology. Discs: Multilevel disc desiccation is present. C2-C3: No significant disc pathology. The spinal canal is patent. No neural foraminal stenosis. C3-C4: No significant disc pathology. The spinal canal is patent. No neural foraminal stenosis. C4-C5: Posterior disc osteophyte complex with mild effacement of the anterior thecal sac. Minimal maggi tral canal stenosis. No neural foraminal stenosis. C5-C6: Posterior distal aspect complex with mild effacement of the anterior thecal sac. Mild central canal stenosis. Uncovertebral joint hypertrophy. Moderate left and mild right neural foraminal stenos is. C6-C7: Broad-based disc bulge with mild effacement of the anterior thecal sac. Mild central canal ayala nosis. Uncovertebral joint hypertrophy. Moderate bilateral neural foraminal stenosis. C7-T1: Minimal broad-based disc bulge without significant effacement of the anterior thecal sac. No neural foraminal stenosis. Other: Partial visualization of enlarged left thyroid lobe. Sphenoid sinus mucosal thickening. IMPRESSION: 1. No evidence for disc herniation or significant spinal canal stenosis. 2. Similar mild to moderate multilevel disc degeneration with associated osteoarthritic changes. [facility], , 01/03/2025 9:45 AM
== END | disposition home or self-care (01) ==
LOC: RADMRIMAIN 19:05
PROVIDERS: ATTEND Orthopaedic Surgery
DX: M47.22 Other spondylosis with radiculopathy, cervical region (principal); G95.9 Disease of spinal cord, unspecified; M50.121 Cervical disc disorder at C4-C5 level with radiculopathy
CPT/HCPCS: 72141

== ENCOUNTER → 2025-03-06 | Outpatient (CLI) | payer MEDICARE, OTHER ==
--- NOTE | 2025-03-07 09:26 | PE ---
EXAMINATION TYPE: PET CT fusion skull to thigh DATE OF EXAM: 03/06/2025 COMPARISON: Most recent chest CT December 20, 2024 and her studies. HISTORY: Left-sided lung cancer diagnosed 2022 TECHNIQUE: Following the intravenous administration of 10.09 mCi of F-18 FDG, whole body images are performed from the skull base to the midthigh. Images are reviewed on the computer in the coronal, a xial, and sagittal planes. Reconstructed rotating images are created on independent workstation and reviewed on the computer. A localization and attenuation correction CT is performed in conjunction with the PET scan. Blood glucose level was 93 SCAN: Subsequent Scan FINDINGS: SKULL BASE AND NECK: No new areas of abnormal hypermetabolic uptake. CHEST, MEDIASTINUM, AND HILAR REGION: Moderate underlying emphysematous change is redemonstrated. Pos ttreatment change to the left mid lung again seen. There are several hypermetabolic nodules in the le ft lung. For reference is a 6 mm nodule axial image 94 with max SUV of 5.39. Inferior to this are sev eral slightly larger hypermetabolic nodules measuring up to 1.0 cm, max SUV at this level is 9.95 on axial image 104. Findings are similar to most recent CT. No suspicious hypermetabolic lymph nodes or right-sided lung nodules. ABDOMEN AND PELVIS: Normal excretion is seen. No hypermetabolic adrenal masses. OSSEOUS STRUCTURES: No areas of abnormal hypermetabolic uptake. OTHER CT: There is a 1.9 cm low-density left thyroid nodule axial image 64, advise thyroid ultrasound follow-up to evaluate and characterize if this is not known finding. This appears larger from most r ecent prior PET/CT. No significant coronary artery calcification. There is 2.1 cm rim calcified low density lesion centra lly in the spleen redemonstrated presumed benign. Metallic hardware from bilateral hip arthroplasty is again seen causing streak artifacts somewhat amezcua it evaluation of pelvic structures. IMPRESSION: 1. Active neoplastic recurrence is thought confirmed left mid lung. No metastatic disease is seen. 2. Enlarging hypodense left thyroid nodule. Advise thyroid ultrasound follow-up to further evaluate a nd characterize if this is not known finding. [facility], , 03/07/2025 9:23 AM
== END | disposition home or self-care (01) ==
LOC: RADPETMAIN 06:19
PROVIDERS: ATTEND Internal Medicine Hematology & Oncology
DX: C34.32 Malignant neoplasm of lower lobe, left bronchus or lung (principal); E04.1 Nontoxic single thyroid nodule
CPT/HCPCS: 78815; A9552

== ENCOUNTER → 2025-03-28 | Outpatient (CLI) | payer MEDICARE, OTHER ==
--- NOTE | 2025-03-28 15:01 | US ---
EXAMINATION TYPE: US thyroid st tissue head/neck DATE OF EXAM: 03/28/2025 COMPARISON: PET CT 03/06/25 CLINICAL INDICATION: Female, 69 years old with history of E04.2 NONTOXIC MULTINODULAR GOITER; Thyroid symptoms, nodule on recent PET TECHNIQUE: Grayscale and color Doppler imaging of the thyroid gland. FINDINGS: GLAND SIZE: Right Lobe: 4.2 x 2.2 x 1.5 cm Overall Parenchyma: heterogeneous Left Lobe: 5.3 x 2.1 x 2.4 cm Overall Parenchyma: heterogeneous Isthmus Thickness: 0.3 cm NODULES RIGHT: # of nodules measured on right: 0 LEFT: # of nodules measured on left: 2 1. 3.6 X 1.7 x 1.9 cm, upper lateral, solid or almost completely solid, hyperechoic nodule, which i s taller than wide, with extra-thyroidal extension margins, without echogenic foci. ACR TI-RADS LEVEL: TI-RADS 5 - Highly Suspicious: Follow if > 0.5 cm, FNA if > 1.0 cm 2. 1.3 X 1.3 x 1.3 cm, lower mid, solid or almost completely solid, isoechoic nodule, which is wid er than tall, with smooth margins, without echogenic foci. ACR TI-RADS LEVEL: TI-RADS 3 - Mildly Suspicious: Follow if > 1.5 cm, FNA if > 2.5 cm ISTHMUS: # of nodules measured in the isthmus: 0 Bilateral neck scanned, no evidence of lymphadenopathy. IMPRESSION: Left thyroid nodules as described above. Recommend for fine-needle aspiration of left thyroid 3.6 cm nodule. Highest TI-RADS level nodule reported: ACR TI-RADS LEVEL: TI-RADS 5 - Highly Suspicious: Follow if > 0.5 cm, FNA if > 1.0 cm TI-RADS assessment score and recommendation for follow-up based on appropriate scoring and treatment protocols. TR1 Benign No FNA TR2 Not suspicious No FNA TR3: If nodule size is ? 2.5 cm, FNA is recommended. If nodule size is ? 1.5 cm, follow-up imaging at 1, 3, and 5 years is recommended. TR4: If nodule size is ? 1.5 cm, FNA is recommended. If nodule size is ? 1.0 cm, follow-up imaging at 1, 2, 3, and 5 years is recommended. TR5: If nodule size is ? 1.0 cm, FNA is recommended. If nodule size is ? 0.5 cm, annual follow-up for up to 5 years is recommended. TR 1 thyroid nodules have a 0.3 % risk of malignancy. TR 2 thyroid nodules have a 1.5 % risk of malignancy. TR 3 thyroid nodules have a 4.8 % risk of malignancy. TR 4 thyroid nodules have a 9.1 % risk of malignancy. TR 5 thyroid nodules have a 35 % risk of malignancy. [email or web address] [facility], , 03/28/2025 2:58 PM
== END | disposition home or self-care (01) ==
LOC: RADUSWWP 14:18
PROVIDERS: ATTEND Family Medicine
DX: E04.2 Nontoxic multinodular goiter (principal)
CPT/HCPCS: 76536